=== PATIENT | female | born 1945 | race African-American/Black ===

== ENCOUNTER → 2017-01-14 | Outpatient (CLI) | payer MEDICARE ==
[2017-01-14 14:10] LABS: APPEARANCE,URINE CLEAR; BILIRUBIN,URINE NEGATIVE (NEGATIVE); GLUCOSE, URINE NEGATIVE (NEGATIVE); KETONES,URINE TRACE mg/dL (NEGATIVE); LEUKOCYTE ESTERASE,URINE TRACE (NEGATIVE); NITRITE,URINE NEGATIVE (NEGATIVE); PROTEIN,URINE 30 mg/dL (NEGATIVE); UROBILINOGEN,URINE NEGATIVE mg/dL (<2.0)
[2017-01-14 14:30] LABS: HEMATOCRIT 34.7 % (36.0-47.0); HEMOGLOBIN 11.7 g/dL (12.0-15.5); HGB HCT DIFFERENCE 0.4; MEAN CORPUSCULAR HEMOGLOBIN 30.2 pg (27.0-33.4); MEAN CORPUSCULAR HGB CONC 33.6 g/dL (32.0-36.0); MEAN CORPUSCULAR VOLUME 90 fl (80-97); RED BLOOD COUNT 3.86 10^6/uL (3.72-5.28); RED CELL DISTRIBUTION WIDTH 13.1 % (11.5-14.0); WHITE BLOOD COUNT 4.5 10^3/uL (4.0-10.5)
[2017-01-14 14:39] LABS: ANION GAP 13 (5-19); BLOOD UREA NITROGEN 24 mg/dL (7-20); CALCIUM 9.8 mg/dL (8.4-10.2); CARBON DIOXIDE 24 mmol/L (22-30); CHLORIDE 107 mmol/L (98-107); CREATININE RESULT 0.75 mg/dL (0.52-1.25); GLUCOSE 132 mg/dL (75-110); POTASSIUM 4.3 mmol/L (3.6-5.0); SODIUM 144.2 mmol/L (137-145)
== END ==
LOC: LAB 13:46
PROVIDERS: ATTEND Internal Medicine Nephrology
DX: R80.9 Proteinuria, unspecified (principal); E11.9 Type 2 diabetes mellitus without complications; I10 Essential (primary) hypertension
CPT/HCPCS: 36415; 80048; 81001; 82570; 84156; 85027

== ENCOUNTER → 2017-09-10 | Outpatient (CLI) | payer MEDICARE ==
--- NOTE | 2017-09-10 11:27 | RADIOLOGY REPORT (SQ) ---
EXAM DESCRIPTION: AFUAIE SWALLOW COMPLETED DATE/TIME: 09/10/2017 8:55 am REASON FOR STUDY: DYSPHAGIA R13.11 DYSPHAGIA, ORAL PHASE R13.12 DYSPHAGIA, OROPHARYNGEAL PHASE R13 .13 DYSPHAGIA, PHARYNGEAL PHASE COMPARISON: None. TECHNIQUE: Videofluoroscopic swallowing examination was performed in conjunction with speech patholo gy. Videofluoroscopic imaging was obtained and reviewed and these are the findings: RADIATION DOSE: 2 minutes 15 seconds of fluoroscopy was used. 1 images saved to PACS. LIMITATIONS: None FINDINGS: The patient was brought into the fluoro room and placed upright on a modified barium swall ow chair. The patient was then given multiple consistencies mixed with barium to swallow under live fluoroscopic video guidance. According to the Speech Pathologist there was laryngeal penetration and suspected aspiration of post swallow residual contrast from the vallecula. IMPRESSION: LARYNGEAL PENETRATION AND SUSPECTED ASPIRATION DESCRIBED.PLEASE SEE SPEECH PATHOLOGIS T REPORT FOR OTHER FINDINGS AND RECOMMENDATIONS. COMMENT: Quality ID [id number]: Final reports for procedures using fluoroscopy that document radiation exp osure indices, or exposure time and number of fluorographic images (if radiation exposure indices are not available) TECHNICAL DOCUMENTATION: JOB ID: [id number] [employer]- All Rights Reserved
--- NOTE | 2017-09-10 15:48 | ST Modified Barium Swallow ---
Recommendation - Recommendations Recommendations: Recommend swallowing strategies hard swallow, alternating solids and liquids, throat clear and reswallow. Continue with current outpatient speech therapy to address dysphagia and dysarthria. Medical Diagnoses - Medical Diagnoses Medical Diagnosis Description & ICD-10 Code(s): oral dysphagia R13.11, oropharyngeal dys R13.12, pharyngeal dys R13.13 Other Medical Diagnoses/Co-Morbidities: Per patient/caregiver report: Diabetic, high blood pressure, history of "mini-strokes". ST Modified Barium Swallow - General Date: 09/10/17 Risks/Precautions: Falls, Aspiration - History History obtained from: Patient, Spouse -: Medical - Reports had stroke about a year ago & was discharged from hospital with home health services. Reports recevied PT & OT, but no speech therapy. Patient reports has lost weight since stroke - reports she has lost 20 pounds. Patient does report loss of appetite following stroke. reports some weight loss may have been intentional - states kidney doctor has advised weight loss. Patient has been attending outpatient speech therapy for dysarthria , but some swallowing concerns were also noted, specifically coughing during PO trials. Medications: Per patient/caregiver report: Metformin, Plavix, Hydroclorothiazide , Ramipril, Aspirin. - Functional Status Prior Functional Status: INDEPENDENT: feeding - independent Current Functional Limitations: feeding - modified independent/coughing - Subjective Patient/caregiver goal(s): safe swallow, r/o aspiration Cognitive-Linguistic Function: Functional Speech Intelligibility: Mildly dysarthric Current Nutritional Means: PO Current PO diet: Regular Current symptoms: Coughing Pain: Patient reports, 0/5 - Objective Assessment: Upright, Left Lateral - Food Trials Used Food trials used: Thin liquids, Pureed, Regular The patient: Was Able to Self Feed - Oral-Motor Skills Dentition: Full Laryngeal Function: Volitional Cough - wnl, Volitional Swallow - wnl - Assessment Oral prep: Normal Labial closure: Adequate Leakage: None Mastication: Adequate Lingual Movement: Normal Oral stage: Normal for this Procedure - Pharyngeal Stage Initiation of Pharyngeal Stage Reflex: Normal Decreased laryngeal elevation: No Reduced Velopharyngeal Closure: no Reduced pressure generation: Yes reduced tongue-based retraction: No Pre-swallow pooling in valleculae: None Pre-Swallow pooling in pyriforms: None Reduced epiglottic excursion: No Reduced pharyngeal peristalsis/contraction: Yes Multiple Swallows with: Cleared w/ Liquid Assist Post-swallow residulas vallecular: Moderate Post-Swallow residuals in pyriforms: Moderate Pharyngeal Stage Comments: Actual swallow within functional limits, however, residue present after the swallow with solid textures in valleculae and pyriform sinus. This residue at high risk of penetration (seen on this study) and aspiration (suspected on this study). - Fall Risk Assessment Medications/Conditions that increase fall risks include: Antidepressants, sedatives, anti-arrhythmic, diuretic, benzodiazipenes, neuroleptics. BP regulation problems, cardiac problems, balance or gait deficits, neurological problems. Is patient considered at risk for falls: yes Fall Risk Actions Taken: No action needed - in physical therapy, using assistive equiptment - Treatment / Educational Needs: Treatment/Education Needs: Treatment consisted of patient education on the role of the Speech Pathologist. Patient's plan of care and golas were communicated as well as scheduling and attendance policies. Recommendations for initial home program were shared. Patient demonstrated understanding and verbalized agreement. - Impression/Summary Laryngeal Penetration: Yes - possible aspiration, not definitive, Cough, Cleared , after swallow Consistency: Solid - residue from solid trials Productive cough: Yes Effective Clearing: yes Ineffective compensatory strategies: hard swallow Patient presents with: Pharyngeal stage dysph., Mild-Moderate Risk of Aspiration: Moderate Risk of nutritional compromise: None Evaluation and Findings: Patient presented with decreased ability to clear bolus from pharyngeal cavity, resulting in significant valleculae and pyriform sinus residue. This residue was seen to then penetrate into laryngeal vestibule , stimulating cough reflex and largely clearing material. Possible aspiration present. Residue was reduced with liquid wash, and further cleared with dry swallow. - Recommendations Solid diet recommendations: Mechanical Soft, Chopped Meat Liquid Diet Modification: Thin Strict aspiration precautions: Yes Dysphagia therapy with DEVOPS ENGINEER: f/u with current thera. Recommended techniques: Fully Upright During Meal, Dry Swallow After Bite, Small Bites and Sips, Alternate Bites/Sips Information, Precautions and Recommendations: Patient (Written), Patient (Verbal ), Family Member (Written), Family Member (Verbal) - Time Total Time: 20 - Plan of Care Patient to follow-up with referring physician: Yes Rehab potential for established goals: Good POC Procedures/Codes: pharyngeal exercises, behavioral/dietary mod Strategies to optimize patient understanding include:: ongoing assessment of educational needs, implementation of educational strategies, and re-education. - - -: Thank you for the opportunity to work with this patient and his/her family. Should you have any questions about this patient's plan or progress, I can be reached at [phone]. Charge G Code? - - -: Yes ST K[facility] Impairment Category - Rationale Based On Rationale Based On: Func. Asses. Tool Results - Swallowing Current G8996: CJ 20-39% Impaired Goal G8997: CI 1-19% Impaired
== END ==
LOC: RAD 08:10
PROVIDERS: ATTEND Registered Nurse
DX: R13.11 Dysphagia, oral phase (principal); R13.12 Dysphagia, oropharyngeal phase; R13.13 Dysphagia, pharyngeal phase
CPT/HCPCS: 74230; 92611; G8996; G8997

== ENCOUNTER → 2018-01-08 | Outpatient (CLI) | payer MEDICARE ==
[2018-01-08 13:52] LABS: HEMATOCRIT 36.4 % (36.0-47.0); HEMOGLOBIN 12.2 g/dL (12.0-15.5); MEAN CORPUSCULAR HEMOGLOBIN 29.7 pg (27.0-33.4); MEAN CORPUSCULAR HGB CONC 33.6 g/dL (32.0-36.0); MEAN CORPUSCULAR VOLUME 88 fl (80-97); PLATELET COUNT 177 10^3/uL (150-450); RED BLOOD COUNT 4.12 10^6/uL (3.72-5.28); WHITE BLOOD COUNT 5.6 10^3/uL (4.0-10.5)
[2018-01-08 14:45] LABS: ANION GAP 6 (5-19); BLOOD UREA NITROGEN 24 mg/dL (7-20); CALCIUM 9.6 mg/dL (8.4-10.2); CARBON DIOXIDE 31 mmol/L (22-30); CHLORIDE 103 mmol/L (98-107); GLUCOSE 245 mg/dL (75-110); POTASSIUM 4.9 mmol/L (3.6-5.0); SODIUM 139.8 mmol/L (137-145)
== END ==
LOC: LAB 13:32
PROVIDERS: ATTEND Internal Medicine Nephrology
DX: E11.22 Type 2 diabetes mellitus with diabetic chronic kidney disease (principal); I12.9 Hypertensive chronic kidney disease with stage 1 through stage 4 chronic kidney disease, or unspecified chronic kidney disease; N18.9 Chronic kidney disease, unspecified; R80.9 Proteinuria, unspecified
CPT/HCPCS: 36415; 80048; 83735; 84100; 85027

== ENCOUNTER 2018-03-13 03:01 | Emergency (ER) | payer MEDICARE ==
[2018-03-13] MEDS ORDERED: MORPHINE SULFATE 10 MG/ML INJ IV ONE (03:27)
[2018-03-13] MEDS ORDERED: METOCLOPRAMIDE HCL INJ/PF 10 MG/2 ML SDV IV ONE (03:36)
--- NOTE | 2018-03-13 03:36 | ER Document Report ---
ED GI/ - General Chief Complaint: Nausea/Vomiting/Diarrhea Stated Complaint: NAUSEA/VOMITING Time Seen by Provider: 03/13/18 03:10 Notes: Patient is a 72-year-old female that comes emergency department for chief complaint of vomiting and abdominal pain. Patient comes by EMS, was given Zofran, vomited once after Zofran. reports she had several episodes of vomiting, one episode of loose stools, no blood in vomit or stool. Patient reports generalized abdominal pain, denies chest pain, shortness of breath, flank pain. She denies any surgeries. Past medical history of stroke, has swallowing and speech deficits, also has a history of type 2 diabetes and hypertension. No other reported medical history. TRAVEL OUTSIDE OF THE [place] IN LAST 30 DAYS: No - Related Data Allergies/Adverse Reactions: No Known Allergies Allergy (Verified 03/13/18 03:27) Past Medical History - General Information source: Patient, Relative - - Social History Smoking Status: Never Smoker Frequency of alcohol use: None Drug Abuse: None Lives with: Family Family History: Reviewed & Not Pertinent Patient has suicidal ideation: No Patient has homicidal ideation: No - Past Medical History Cardiac Medical History: Reports: Hx Hypertension Denies: Hx Congestive Heart Failure, Hx DVT, Hx Heart Attack, Hx Hypercholesterolemia, Hx Pulmonary Embolism Pulmonary Medical History: Reports: Hx Bronchitis Denies: Hx Asthma, Hx COPD, Hx Pneumonia Neurological Medical History: Denies: Hx Cerebrovascular Accident, Hx Seizures Endocrine Medical History: Reports: Hx Diabetes Mellitus Type 2. Denies: Hx Diabetes Mellitus Type 1, Hx Hyperthyroidism, Hx Hypothyroidism Renal/ Medical History: Denies: Hx Peritoneal Dialysis GI Medical History: Reports: Hx Gastroesophageal Reflux Disease. Denies: Hx Cirrhosis, Hx Hepatitis Musculoskeltal Medical History: Denies Hx Arthritis Psychiatric Medical History: Denies: Hx Depression Infectious Medical History: Denies: Hx Hepatitis Past Surgical History: Reports: Hx Hysterectomy. Denies: Hx Pacemaker - Immunizations Hx Diphtheria, Pertussis, Tetanus Vaccination: No Hx Pneumococcal Vaccination: 07/21/15 Review of Systems - Review of Systems Constitutional: No symptoms reported EENT: No symptoms reported Cardiovascular: No symptoms reported Respiratory: No symptoms reported Gastrointestinal: See HPI Genitourinary: No symptoms reported Female Genitourinary: No symptoms reported Musculoskeletal: No symptoms reported Skin: No symptoms reported Hematologic/Lymphatic: No symptoms reported Neurological/Psychological: No symptoms reported Physical Exam - Vital signs Vitals: Temp Pulse Resp BP Pulse Ox 97.6 F 80 20 158/78 H 94 03/13/18 03:10 03/13/18 03:10 03/13/18 03:10 03/13/18 03:10 03/13/18 03:10 - Notes Notes: General Appearance: Well nourished, alert, cooperative, no acute distress, no obvious discomfort. Vitals: reviewed, See vital signs table. Head: no swelling or tenderness to the head Eyes: PERRL, EOMI, Conjuctiva clear Mouth: No decreasd moisture Throat: Slight erythema of the tonsils. No tonsillar hypertrophy. No exudates. Neck: Supple, no neck tenderness, No thyromegaly. No lymphadenopathy. No nuchal rigidty. Lungs: No wheezing, No rales, No rhonci, No accessory muscle use, good air exchange bilaterally. Heart: Normal rate, Regular rythm, No murmur, no rub Abdomen: Normal BS, soft, No rigidity, there is mild generalized mid abdominal tenderness which is nonspecific, No guarding, no rebound, no abdominal masses, no organomegaly Extremities: strength 5/5 in all extremities, good pulses in all extremities, no swelling or tenderness in the extremities, no edema. Skin: warm, dry, appropriate color, no rash Neuro: speech deficit with difficulty understanding patient clearly, oriented x 3, responds appropriately to questions. Cranial nerves II through XII are intact. Distal sensation intact. Patient moves all extremities without difficulty. Course - Re-evaluation Re-evalutation: Patient with some mid abdominal tenderness but no guarding on exam, she does not complain of pain unless I press on the abdomen. She is alert, she is well- appearing otherwise. No vomiting after arrival to the emergency department and after medications. Given IV fluids. CBC unremarkable, chemistry shows evidence of dehydration without renal failure or significant electrolyte derangement. Urine shows large leukocyte esterase, a few white blood cells. Because of pain on palpation of the abdomen and vomiting along with her advanced age discussed with patient and family and decision was made to perform CAT scan to rule out acute emergent etiology. CAT scan shows no acute abdominal or pelvic abnormality, questionable area on lower T-spine per radiologist, however patient has no tenderness of the area, no history of IV drug abuse, no immunocompromise condition, no neurological deficits, no fever, I have very low suspicion of discitis. Patient tolerating fluids very well, requesting to go home. She will be covered with Keflex, provided with nausea medication, discussed close follow-up and return precautions in detail with patient and at bedside. They state understanding and agreement. - Vital Signs Vital signs: Temp Pulse Resp BP Pulse Ox 97.5 F 85 18 161/61 H 95 03/13/18 07:22 03/13/18 07:22 03/13/18 07:22 03/13/18 07:22 03/13/18 07:22 - Laboratory Result Diagrams: 03/13/18 03:45 03/13/18 03:45 Laboratory results interpreted by me: 03/13/18 03/13/18 03/13/18 03:45 03:45 04:05 Monocytes % 1.2 L Sodium 147.6 H Chloride 109 H BUN 36 H Est GFR (Non-Af Amer) 53 L Glucose 143 H Urine Glucose (UA) 50 H Urine Blood SMALL H Ur Leukocyte Esterase LARGE H Discharge - Discharge Clinical Impression: Vomiting Qualifiers: Vomiting type: unspecified Vomiting Intractability: non-intractable Nausea presence: with nausea Qualified Code(s): R11.2 - Nausea with vomiting, unspecified Abdominal pain Qualifiers: Abdominal location: generalized Qualified Code(s): R10.84 - Generalized abdominal pain Condition: Stable Disposition: HOME, SELF-CARE Additional Instructions: The exact cause of the vomiting tonight is uncertain. The CAT scan and workup did not show any abnormalities except possible developing urinary tract infection. Take Keflex antibiotics as prescribed for the urinary tract, take Zofran if needed for nausea, start with clear fluids and then progress to normal diet. Follow-up with your primary care within the next 2 days. Return if you worsen including returned vomiting, abdominal pain, chest pain, fever, or any other concerning or worsening symptoms. Prescriptions: Cephalexin Monohydrate [Keflex 500 mg Capsule] 500 mg PO BID #10 capsule Ondansetron [Zofran Odt 4 mg Tablet] 1 - 2 tab PO Q4H PRN #15 tab.rapdis PRN Reason: For Nausea/Vomiting Referrals: HARIKA BENITEZ MD [Primary Care Provider] - Follow up as needed
[2018-03-13 04:02] LABS: ABSOLUTE LYMPHOCYTES (AUTO) 1.3 10^3/uL (0.5-4.7); ABSOLUTE MONOCYTES (AUTO) 0.1 10^3/uL (0.1-1.4); ABSOLUTE NEUT (AUTO) 3.6 10^3/uL (1.7-8.2); BASOPHILS % (AUTO) 0.6 % (0-2); EOSINOPHILS % (AUTO) 0.7 % (0-6); HEMATOCRIT 40.2 % (36.0-47.0); HEMOGLOBIN 13.2 g/dL (12.0-15.5); LYMPHOCYTES % (AUTO) 25.3 % (13-45); MEAN CORPUSCULAR HEMOGLOBIN 29.5 pg (27.0-33.4); MEAN CORPUSCULAR HGB CONC 32.9 g/dL (32.0-36.0); MEAN CORPUSCULAR VOLUME 90 fl (80-97); MONOCYTES % (AUTO) 1.2 % (3-13); PLATELET COUNT 178 10^3/uL (150-450); RED BLOOD COUNT 4.49 10^6/uL (3.72-5.28); RED CELL DISTRIBUTION WIDTH 13.9 % (11.5-14.0); SEGMENTED NEUTROPHILS % (AUTO) 72.2 % (42-78); TOTAL CELLS COUNTED % (AUTO) 100 %; WHITE BLOOD COUNT 4.9 10^3/uL (4.0-10.5)
[2018-03-13 04:14] LABS: ALANINE AMINOTRANSFERASE 21 U/L (9-52); ALKALINE PHOSPHATASE 80 U/L (38-126); ANION GAP 13 (5-19); ASPARTATE AMINO TRANSFERASE 26 U/L (14-36); BILIRUBIN,DIRECT 0.4 mg/dL (0.0-0.4); BILIRUBIN,TOTAL 0.4 mg/dL (0.2-1.3); BLOOD UREA NITROGEN 36 mg/dL (7-20); CALCIUM 9.7 mg/dL (8.4-10.2); CARBON DIOXIDE 26 mmol/L (22-30); CHLORIDE 109 mmol/L (98-107); GLUCOSE 143 mg/dL (75-110); LIPASE 197.8 U/L (23-300); POTASSIUM 4.1 mmol/L (3.6-5.0); SODIUM 147.6 mmol/L (137-145); TOTAL PROTEIN 7.1 g/dL (6.3-8.2)
[2018-03-13 04:23] LABS: APPEARANCE,URINE CLEAR; BILIRUBIN,URINE NEGATIVE (NEGATIVE); COLOR,URINE YELLOW; GLUCOSE, URINE 50 mg/dL (NEGATIVE); KETONES,URINE NEGATIVE (NEGATIVE); LEUKOCYTE ESTERASE,URINE LARGE (NEGATIVE); NITRITE,URINE NEGATIVE (NEGATIVE); PROTEIN,URINE NEGATIVE (NEGATIVE); UROBILINOGEN,URINE NEGATIVE mg/dL (<2.0)
--- NOTE | 2018-03-13 06:06 | RADIOLOGY REPORT (SQ) ---
EXAM DESCRIPTION: CT ABDOMEN PELVIS WITH IV CONTRAST CLINICAL HISTORY: 72 years Female, vomiting, abdominal pain Comparison: None. Technique: IV contrast. Coronal and sagittal reformat. This exam was performed according to our departmental dose-optimization program, which includes automated exposure control, adjustment of the mA and/or kV according to patient size and/or use of iterative reconstruction technique.[facility]: Dose Right [facility]: CareDose [facility]: Dose Right [facility]: Teradose 4D [facility]: GlobaTrek LIMITATIONS: Arm position. Findings: Mild irregular endplates and disc height loss at T10-T11; no evidence of paravertebral mass or fluid. Moderate nonspecific fluid retention of the large bowel which may indicate malabsorption. No free fluid and no free air. No evidence of appendicitis; appendix not definitively discerned. Grade 1 L4 anterolisthesis.Moderate bone demineralization. Atherosclerosis.Inferior thorax, liver, gallbladder, pancreas, spleen, adrenals, renal system, gastrointestinal tract, pelvic organs, lymphatics, vasculature, and musculoskeleton appear otherwise unremarkable. IMPRESSION: 1. Mild irregular endplates at the T10-T11 disc level may indicate advanced focal disc desiccation or infectious discitis. Consider further evaluation with contrast MRI of the thoracolumbar spine or Ga-67 scintigraphy as clinically warranted. 2. No acute findings of the abdomen or pelvis.
[2018-03-13] MEDS ORDERED: NORMAL SALINE 1000 ML 500 ML IV ONE (06:14)
[2018-03-13 07:23] VITALS: BP 161/61
== END 2018-03-13 07:05 | disposition home or self-care (01) ==
LOC: ER 03:01
DX: R11.2 Nausea with vomiting, unspecified (principal); R10.84 Generalized abdominal pain; R19.4 Change in bowel habit; E11.9 Type 2 diabetes mellitus without complications; I10 Essential (primary) hypertension; I69.328 Other speech and language deficits following cerebral infarction; I69.391 Dysphagia following cerebral infarction; R13.10 Dysphagia, unspecified; E86.0 Dehydration
CPT/HCPCS: 99284; 96361; 51701; 96374; 96375; 36415; 87086; 83690; 85025; 87088; 80053; 81001; 87186; 74177; J2765; J2270; J7030

== ENCOUNTER → 2018-07-17 | Outpatient (CLI) | payer MEDICARE ==
--- NOTE | 2018-07-17 09:49 | ST Modified Barium Swallow ---
Recommendation - Recommendations Recommendations: No penetration or aspiration observed across all consistencies trialed, but patient had significant coughing after swallow although there were no residuals of food/liquid and significant coughing after study had been completed. Recommend continue regular/thin diet. Consider gastroenterology referral to see if reflux may be causing globus sensation and coughing after meals. Medical Diagnoses - Medical Diagnoses Medical Diagnosis Description & ICD-10 Code(s): dysphagia (R13.10) Other Medical Diagnoses/Co-Morbidities: Per patient/caregiver report: Diabetic, high blood pressure, history of "mini-strokes". ST Modified Barium Swallow - General Date: 07/17/18 Referring Physician: Kyleigh Risks/Precautions: Falls, Aspiration Date of Onset: 07/21/16 Reason for Referral: dysphagia, coughing during meals - History History obtained from: Patient - Patient reports stroke in July 2016. Seen for outpatient speech therapy focusing on dysphagia and dysarthria, but discharged October 2017. Patient's reports that she is receiving home health speech therapy continuing to work on dysphagia and dysarthria. Patient reports continued coughing during meals with food and liquids., Spouse -: Medical Medications: Per patient/caregiver report: Metformin, Ramipril, insulin - Functional Status Prior Functional Status: INDEPENDENT: ADL, community mobility, communication, feeding - Subjective Patient/caregiver goal(s): safe swallow, r/o aspiration Cognitive-Linguistic Function: Functional Speech Intelligibility: Mildly dysarthric Current Nutritional Means: PO Current PO diet: Regular - with thin liquids Current symptoms: Coughing, c/o Globus sensation Pain: Patient reports, 0/5 - Objective Assessment: Upright, Left Lateral - Food Trials Used Food trials used: Thin liquids, Pureed, Regular The patient: Was Able to Self Feed - Oral-Motor Skills Dentition: Full Laryngeal Function: Volitional Cough - Assessment Oral prep: Normal Labial closure: Adequate Leakage: None Mastication: Adequate Lingual Movement: Normal Oral stage: Normal for this Procedure - Pharyngeal Stage Initiation of Pharyngeal Stage Reflex: Normal Reflex Delay Time (Seconds): 1 Decreased laryngeal elevation: No Reduced Velopharyngeal Closure: no Reduced pressure generation: No reduced tongue-based retraction: No Pre-swallow pooling in valleculae: Mild Pre-Swallow pooling in pyriforms: Mild - with thin and cracker; swallow triggered within 1 second Reduced Thyro-Hyoid approximation: No Reduced epiglottic excursion: No Reduced pharyngeal peristalsis/contraction: No Multiple Swallows with: Effective Post-swallow residulas vallecular: Mild - pudding Post-Swallow residuals in pyriforms: Mild - pudding Reduced Cricopharyngeal opening: No - Esophageal Stage Cricopharyngeal Function: Normal Upper Esophageal Transit: Normal Cervical Osteophytes noted: No - Fall Risk Assessment Medications/Conditions that increase fall risks include: Antidepressants, sedatives, anti-arrhythmic, diuretic, benzodiazipenes, neuroleptics. BP regulation problems, cardiac problems, balance or gait deficits, neurological problems. Is patient considered at risk for falls: yes Fall Risk Actions Taken: No action needed - Behavioral Observations During evaluation process patient: was pleasant, was cooperative, able to answer questions, provided medical history - Treatment / Educational Needs: Treatment/Education Needs: Treatment consisted of patient education on the role of the Speech Pathologist. Patient's plan of care and golas were communicated as well as scheduling and attendance policies. Recommendations for initial home program were shared. Patient demonstrated understanding and verbalized agreement. - Impression/Summary Laryngeal Penetration: No Tracheal Aspiration: no - No penetration or aspiration seen, but patient exhibited significant cough with pudding and after swallow was complete. Patient presents with: Pharyngeal stage dysph., Mild-Moderate Risk of Aspiration: Minimal Risk of nutritional compromise: Mild - Recommendations NPO: no Solid diet recommendations: Regular Liquid Diet Modification: Thin Strict aspiration precautions: Yes Pt/Family education and followup with MD: Yes Dysphagia therapy with WARP SPOOLER: no Recommended techniques: Fully Upright During Meal, Small Bites and Sips Supervision: Independent - Time Total Time: 20 - Plan of Care Strategies to optimize patient understanding include:: ongoing assessment of educational needs, implementation of educational strategies, and re-education. - - -: Thank you for the opportunity to work with this patient and his/her family. Should you have any questions about this patient's plan or progress, I can be reached at [phone]. Charge G Code? - - -: Yes ST F.L. Impairment Category - Swallowing Current G8996: CI 1-19% Impaired Goal G8997: CI 1-19% Impaired Discharge G8998: CI 1-19% Impaired
--- NOTE | 2018-07-17 11:53 | RADIOLOGY REPORT (SQ) ---
EXAM DESCRIPTION: HEATHER SWALLOW COMPLETED DATE/TIME: 07/17/2018 8:51 am REASON FOR STUDY: DYSPHAGIA, OROPHARYNGEAL PHASE R13.12 DYSPHAGIA, OROPHARYNGEAL PHASE CVA COMPARISON: 09/10/2017 TECHNIQUE: Videofluoroscopic swallowing examination was performed in conjunction with speech patholo gy. Videofluoroscopic imaging was obtained and reviewed and these are the findings: RADIATION DOSE: 1 minutes 5 seconds of fluoroscopy was used. 1 images saved to PACS. LIMITATIONS: None FINDINGS: The patient was brought into the fluoro room and placed upright on a modified barium swall ow chair. The patient was then given multiple consistencies mixed with barium to swallow under live fluoroscopic video guidance. According to the Speech Pathologist there was no penetration or aspirat ion. IMPRESSION: NO EVIDENCE OF PENETRATION OR ASPIRATIONPLEASE SEE SPEECH PATHOLOGIST REPORT FOR OTHER F INDINGS AND RECOMMENDATIONS. COMMENT: Quality ID [id number]: Final reports for procedures using fluoroscopy that document radiation exp osure indices, or exposure time and number of fluorographic images (if radiation exposure indices are not available) TECHNICAL DOCUMENTATION: JOB ID: [id number]- All Rights Reserved Reading location - IP/workstation name: [email or web address]
== END ==
LOC: RAD 08:24
PROVIDERS: ATTEND Family Medicine
DX: R13.12 Dysphagia, oropharyngeal phase (principal)
CPT/HCPCS: 74230; 92611; G8996; G8997; G8998

== ENCOUNTER 2018-10-09 11:34 | Emergency (ER) | payer MEDICARE ==
[2018-10-09] MEDS ORDERED: NORMAL SALINE 1000 ML 1,000 ML IV ONE (11:49)
--- NOTE | 2018-10-09 11:51 | ER Document Report ---
ED Medical Screen (RME) - General Chief Complaint: Flank Pain Stated Complaint: ABDOMINAL PAIN Notes: 73-year-old female patient with about a 3-day history of not eating well, vomited about 1 hour following supper the past 2 nights, noted to be more lethargic today. Does not normally get around well but it is worse today. 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 She had been complaining of some pain in her right flank. Blood sugar was about 160 this morning. I have greeted and performed a rapid initial assessment of this patient. A comprehensive ED assessment and evaluation of the patient, analysis of test results and completion of the medical decision making process will be conducted by additional ED providers. TRAVEL OUTSIDE OF THE [place] IN LAST 30 DAYS: No - Related Data Allergies/Adverse Reactions: No Known Allergies Allergy (Verified 03/13/18 03:27) Past Medical History - Past Medical History Cardiac Medical History: Reports: Hx Hypertension Denies: Hx Congestive Heart Failure, Hx DVT, Hx Heart Attack, Hx Hypercholesterolemia, Hx Pulmonary Embolism Pulmonary Medical History: Reports: Hx Bronchitis Denies: Hx Asthma, Hx COPD, Hx Pneumonia Neurological Medical History: Denies: Hx Cerebrovascular Accident, Hx Seizures Endocrine Medical History: Reports: Hx Diabetes Mellitus Type 2. Denies: Hx Diabetes Mellitus Type 1, Hx Hyperthyroidism, Hx Hypothyroidism Renal/ Medical History: Denies: Hx Peritoneal Dialysis GI Medical History: Reports: Hx Gastroesophageal Reflux Disease. Denies: Hx Cirrhosis, Hx Hepatitis Musculoskeltal Medical History: Denies Hx Arthritis Psychiatric Medical History: Denies: Hx Depression Infectious Medical History: Denies: Hx Hepatitis Past Surgical History: Reports: Hx Hysterectomy. Denies: Hx Pacemaker - Immunizations Hx Diphtheria, Pertussis, Tetanus Vaccination: No Physical Exam - Vital signs Vitals: Temp Pulse Resp BP Pulse Ox 98.1 F 69 18 169/64 H 96 10/09/18 11:46 10/09/18 11:46 10/09/18 11:46 10/09/18 11:46 10/09/18 11:46 Course - Vital Signs Vital signs: Temp Pulse Resp BP Pulse Ox 98.1 F 69 18 169/64 H 96 10/09/18 11:46 10/09/18 11:46 10/09/18 11:46 10/09/18 11:46 10/09/18 11:46 Doctor's Discharge - Discharge Referrals: HARIKA BENITEZ MD [Primary Care Provider] - Follow up as needed
[2018-10-09] MEDS ORDERED: ONDANSETRON HCL INJ/PF 4 MG/2 ML SDV IV ONE (12:28)
[2018-10-09 12:40] LABS: ABSOLUTE BASOPHILS # (AUTO) 0.1 10^3/uL (0.0-0.2); ABSOLUTE LYMPHOCYTES (AUTO) 1.5 10^3/uL (0.5-4.7); ABSOLUTE MONOCYTES (AUTO) 0.3 10^3/uL (0.1-1.4); ABSOLUTE NEUT (AUTO) 6.7 10^3/uL (1.7-8.2); BASOPHILS % (AUTO) 0.8 % (0-2); EOSINOPHILS % (AUTO) 0.3 % (0-6); HEMATOCRIT 38.2 % (36.0-47.0); HEMOGLOBIN 12.8 g/dL (12.0-15.5); LYMPHOCYTES % (AUTO) 17.1 % (13-45); MEAN CORPUSCULAR HEMOGLOBIN 29.8 pg (27.0-33.4); MEAN CORPUSCULAR HGB CONC 33.5 g/dL (32.0-36.0); MEAN CORPUSCULAR VOLUME 89 fl (80-97); MONOCYTES % (AUTO) 3.2 % (3-13); PLATELET COUNT 219 10^3/uL (150-450); RED BLOOD COUNT 4.29 10^6/uL (3.72-5.28); RED CELL DISTRIBUTION WIDTH 13.6 % (11.5-14.0); SEGMENTED NEUTROPHILS % (AUTO) 78.6 % (42-78); TOTAL CELLS COUNTED % (AUTO) 100 %; WHITE BLOOD COUNT 8.5 10^3/uL (4.0-10.5)
--- NOTE | 2018-10-09 13:05 | EKG REPORT ---
SEVERITY:- BORDERLINE ECG - SINUS RHYTHM BORDERLINE INFERIOR Q WAVES BORDERLINE T WAVE ABNORMALITIES : Confirmed by: Mark Barrett MD 09-Oct-2018 13:04:08
[2018-10-09 13:06] LABS: ALANINE AMINOTRANSFERASE 14 U/L (9-52); ALBUMIN 4.2 g/dL (3.5-5.0); ALKALINE PHOSPHATASE 81 U/L (38-126); ANION GAP 11 (5-19); ASPARTATE AMINO TRANSFERASE 22 U/L (14-36); BILIRUBIN,DIRECT 0.2 mg/dL (0.0-0.4); BILIRUBIN,TOTAL 0.7 mg/dL (0.2-1.3); BLOOD UREA NITROGEN 26 mg/dL (7-20); CALCIUM 9.8 mg/dL (8.4-10.2); CARBON DIOXIDE 31 mmol/L (22-30); CHLORIDE 100 mmol/L (98-107); CREATINE KINASE 69 U/L (30-135); GLUCOSE 191 mg/dL (75-110); POTASSIUM 4.3 mmol/L (3.6-5.0); SODIUM 141.5 mmol/L (137-145); TOTAL PROTEIN 7.4 g/dL (6.3-8.2)
[2018-10-09 13:08] LABS: APPEARANCE,URINE CLEAR; BILIRUBIN,URINE NEGATIVE (NEGATIVE); COLOR,URINE YELLOW; GLUCOSE, URINE NEGATIVE (NEGATIVE); KETONES,URINE TRACE mg/dL (NEGATIVE); LEUKOCYTE ESTERASE,URINE NEGATIVE (NEGATIVE); NITRITE,URINE NEGATIVE (NEGATIVE); PROTEIN,URINE 100 mg/dL (NEGATIVE); URINE SPECIFIC GRAVITY 1.023; UROBILINOGEN,URINE NEGATIVE mg/dL (<2.0)
[2018-10-09 13:30] LABS: CREATINE KINASE MB < 0.22 ng/mL (<4.55); TROPONIN I < 0.012 ng/mL
--- NOTE | 2018-10-09 14:19 | ER Document Report ---
ED General - General Chief Complaint: Flank Pain Stated Complaint: ABDOMINAL PAIN Time Seen by Provider: 10/09/18 11:51 Notes: Patient is a 73-year-old female with history of CVA that presents to the emergency department for chief complaint of nausea, vomiting and abdominal pain. Patient states that her symptoms started yesterday, she did have vomiting yesterday evening, as well as nausea this morning, she had pain in her right flank region, and was worried about a possible urinary tract infection. She thinks she may have had some discomfort with urinating. Denies noting any fevers, chills, night sweats, chest pain, shortness of breath, difficulty breathing. She has not had any diarrhea associated. At this time she describes her pain as a 3 out of 10, describes as "not that bad" as an aching sensation that radiates from the back to the front. Past Medical History: CVA with residual left-sided deficits, diabetes mellitus, hypertension Past Surgical History: Reviewed and not pertinent to presentation Social History: Denies current tobacco, alcohol or drug use Family History: Reviewed and noncontributory for presenting illness Allergies: Reviewed, see documented allergy list. REVIEW OF SYSTEMS: Other than noted above, the 12 point review of systems was reviewed with the patient and were negative, all pertinent findings are included in the HPI. PHYSICAL EXAMINATION: Vital signs reviewed, nursing noted reviewed. GENERAL: Well-appearing, well-nourished and in no acute distress. HEAD: Atraumatic, normocephalic. EYES: Eyes appear normal, extraocular movements intact, sclera anicteric, conjunctiva are normal. ENT: nares patent, oropharynx clear without exudates. Moist mucous membranes. NECK: Normal range of motion, supple without lymphadenopathy LUNGS: Breath sounds clear to auscultation bilaterally and equal. No wheezes rales or rhonchi. HEART: Regular rate and rhythm without murmurs ABDOMEN: Soft, mild left CVA tenderness with palpation, no anterior abdominal tenderness, normoactive bowel sounds. No rebound, guarding, or rigidity. No masses appreciated. EXTREMITIES: Nontender, good motor strength, is +4/5 in the left upper and lower extremity, compared to the right which is 5/5, this is chronic and not changed. NEUROLOGICAL: Dysarthria, and muscular motor weakness on the left compared to the right, chronic according to the patient's , and not changed or worsened, no new focal neurological deficits. Moves all extremities spontaneously Motor and sensory grossly intact on exam. PSYCH: Normal mood, normal affect. SKIN: Warm, Dry, normal turgor, no rashes or lesions noted on exposed skin TRAVEL OUTSIDE OF THE [place] IN LAST 30 DAYS: No - Related Data Allergies/Adverse Reactions: No Known Allergies Allergy (Verified 03/13/18 03:27) Past Medical History - Social History Smoking Status: Former Smoker Frequency of alcohol use: None Drug Abuse: None Family History: Reviewed & Not Pertinent Patient has suicidal ideation: No Patient has homicidal ideation: No - Past Medical History Cardiac Medical History: Reports: Hx Hypertension Denies: Hx Congestive Heart Failure, Hx DVT, Hx Heart Attack, Hx Hypercholesterolemia, Hx Pulmonary Embolism Pulmonary Medical History: Reports: Hx Bronchitis Denies: Hx Asthma, Hx COPD, Hx Pneumonia Neurological Medical History: Denies: Hx Cerebrovascular Accident, Hx Seizures Endocrine Medical History: Reports: Hx Diabetes Mellitus Type 2. Denies: Hx Diabetes Mellitus Type 1, Hx Hyperthyroidism, Hx Hypothyroidism Renal/ Medical History: Denies: Hx Peritoneal Dialysis GI Medical History: Reports: Hx Gastroesophageal Reflux Disease. Denies: Hx Cirrhosis, Hx Hepatitis Musculoskeletal Medical History: Denies Hx Arthritis Psychiatric Medical History: Denies: Hx Depression Infectious Medical History: Denies: Hx Hepatitis Past Surgical History: Reports: Hx Hysterectomy. Denies: Hx Pacemaker - Immunizations Hx Diphtheria, Pertussis, Tetanus Vaccination: No Hx Pneumococcal Vaccination: 07/21/15 Physical Exam - Vital signs Vitals: Temp Pulse Resp BP Pulse Ox 98.1 F 69 18 169/64 H 96 10/09/18 11:46 10/09/18 11:46 10/09/18 11:46 10/09/18 11:46 10/09/18 11:46 Course - Re-evaluation Re-evalutation: Patient seen and examined vital signs reviewed. Laboratory data and imaging were ordered as appropriate for the patient's presenting symptoms and complaint, with consideration of any critical or life threatening conditions that may be associated with their obtained history and exam as noted above. Patient was treated with IV fluids and Zofran Results were reviewed when available and demonstrated unremarkable CBC, CMP, and urinalysis, no signs convincing of urinary tract infection The patient was re-evaluated and was improved, stated she did not have any further pain, or nausea, and felt much better than when she came into the ED. Evaluation was most consistent with nausea and vomiting, and nonspecific abdominal pain, advised follow-up with PCP and given a prescription for Zofran. Results were discussed with the patient at this point, after careful consideration I feel that that patient can be discharged from the emergency department, the patient was educated treatments and reasons to return to the emergency department based on their presumed diagnosis as noted above, they were advised to followup with a primary care physician in 2-3 days. Patient was agr eeable to plan of care. *Note is created using voice recognition software and may contain spelling, syntax or grammatical errors. Laboratory 10/09/18 10/09/18 10/09/18 12:25 12:25 12:25 WBC 8.5 RBC 4.29 Hgb 12.8 Hct 38.2 MCV 89 MCH 29.8 MCHC 33.5 RDW 13.6 Plt Count 219 Seg Neutrophils % 78.6 H Lymphocytes % 17.1 Monocytes % 3.2 Eosinophils % 0.3 Basophils % 0.8 Absolute Neutrophils 6.7 Absolute Lymphocytes 1.5 Absolute Monocytes 0.3 Absolute Eosinophils 0.0 Absolute Basophils 0.1 Sodium 141.5 Potassium 4.3 Chloride 100 Carbon Dioxide 31 H Anion Gap 11 BUN 26 H Creatinine 0.85 Est GFR ( Amer) > 60 Est GFR (Non-Af Amer) > 60 Glucose 191 H Lactic Acid 1.1 Calcium 9.8 Magnesium 1.9 Total Bilirubin 0.7 Direct Bilirubin 0.2 Neonat Total Bilirubin Not Reportable Neonat Direct Bilirubin Not Reportable Neonat Indirect Bili Not Reportable AST 22 ALT 14 Alkaline Phosphatase 81 Creatine Kinase 69 CK-MB (CK-2) Troponin I Total Protein 7.4 Albumin 4.2 Urine Color Urine Appearance Urine pH Ur Specific [place] Urine Protein Urine Glucose (UA) Urine Ketones Urine Blood Urine Nitrite Urine Bilirubin Urine Urobilinogen Ur Leukocyte Esterase Urine WBC (Auto) Urine RBC (Auto) Urine Bacteria (Auto) Urine Mucus (Auto) Urine Ascorbic Acid 10/09/18 10/09/18 12:25 12:46 WBC RBC Hgb Hct MCV MCH MCHC RDW Plt Count Seg Neutrophils % Lymphocytes % Monocytes % Eosinophils % Basophils % Absolute Neutrophils Absolute Lymphocytes Absolute Monocytes Absolute Eosinophils Absolute Basophils Sodium Potassium Chloride Carbon Dioxide Anion Gap BUN Creatinine Est GFR ( Amer) Est GFR (Non-Af Amer) Glucose Lactic Acid Calcium Magnesium Total Bilirubin Direct Bilirubin Neonat Total Bilirubin Neonat Direct Bilirubin Neonat Indirect Bili AST ALT Alkaline Phosphatase Creatine Kinase CK-MB (CK-2) < 0.22 Troponin I < 0.012 Total Protein Albumin Urine Color YELLOW Urine Appearance CLEAR Urine pH 6.0 Ur Specific [place] 1.023 Urine Protein 100 H Urine Glucose (UA) NEGATIVE Urine Ketones TRACE H Urine Blood NEGATIVE Urine Nitrite NEGATIVE Urine Bilirubin NEGATIVE Urine Urobilinogen NEGATIVE Ur Leukocyte Esterase NEGATIVE Urine WBC (Auto) 1 Urine RBC (Auto) 1 Urine Bacteria (Auto) TRACE Urine Mucus (Auto) OCC Urine Ascorbic Acid NEGATIVE - Vital Signs Vital signs: Temp Pulse Resp BP Pulse Ox 98.5 F 69 15 183/75 H 99 10/09/18 15:04 10/09/18 15:04 10/09/18 15:04 10/09/18 15:04 10/09/18 15:04 - Laboratory Result Diagrams: 10/09/18 12:25 10/09/18 12:25 Laboratory results interpreted by me: 10/09/18 10/09/18 10/09/18 12:25 12:25 12:46 Seg Neutrophils % 78.6 H Carbon Dioxide 31 H BUN 26 H Glucose 191 H Urine Protein 100 H Urine Ketones TRACE H Discharge - Discharge Clinical Impression: Nausea and vomiting Condition: Stable Disposition: HOME, SELF-CARE Instructions: Vomiting ([facility]) Additional Instructions: Please follow-up with your primary care physician, take the nausea medicine as needed, and inferior sling or not improving, do not hesitate to return to the emergency department, please continue to stay hydrated, you can drink Diluted Gatorade, and soups to do this, please take your blood pressure medication when you get home today. Prescriptions: Ondansetron [Zofran Odt 4 mg Tablet] 1 tab PO Q8H PRN #15 tab.rapdis PRN Reason: For Nausea/Vomiting Referrals: HARIKA BENITEZ MD [Primary Care Provider] - Follow up as needed
[2018-10-09 14:53] VITALS: BP 183/75
== END 2018-10-09 15:04 | disposition home or self-care (01) ==
LOC: ER 11:34
DX: R11.2 Nausea with vomiting, unspecified (principal); R10.9 Unspecified abdominal pain; E11.9 Type 2 diabetes mellitus without complications; Z86.73 Personal history of transient ischemic attack (TIA), and cerebral infarction without residual deficits; Z90.710 Acquired absence of both cervix and uterus
CPT/HCPCS: 93005; 99284; 96361; 51701; 96374; 36415; 87040; 82553; 82550; 83735; 85025; 80053; 81001; 84484; 83605; 93010; J2405; J7030

== ENCOUNTER 2019-01-16 10:00 | Inpatient (IN) | payer MEDICARE ==
--- NOTE | 2019-01-16 10:18 | ER Document Report ---
ED General - General Chief Complaint: Altered Mental Status Stated Complaint: STROKE LIKE SYMPTOMS Time Seen by Provider: 01/16/19 10:16 Primary Care Provider: HARIKA BENITEZ MD [Primary Care Provider] - Follow up as needed Notes: 73-year-old female patient emergency department chief complaint of strokelike symptoms. Patient has had a prior stroke in the past. Has had dysphasia as well as diplopia. states that this is been getting worse over the last several months. Try to get an appointment with his primary care doctor but was unavailable this week. Has not seen a neurologist in a while and wants to see a neurologist. The patient began to complain that she was seen to have everything. noticed that her face looked a little different specifically that her right eye looked to be drifting outward while the left eye looked forward. She has had worsening difficulty with ambulation over the last several months confining her to wheelchair. Patient seems to be declining according to the . Currently she is on ramipril, hydrochlorothiazide, Lipitor and aspirin as well as metformin. TRAVEL OUTSIDE OF THE [place] IN LAST 30 DAYS: No - HPI Onset/Duration: Gradual Severity: Mild Pain Level: 0 Associated symptoms: None - Related Data Allergies/Adverse Reactions: No Known Allergies Allergy (Verified 01/16/19 16:22) Past Medical History - General Information source: Patient, Relative - Social History Smoking Status: Never Smoker Frequency of alcohol use: None Drug Abuse: None Lives with: Spouse/Significant other Family History: Reviewed & Not Pertinent - Past Medical History Cardiac Medical History: Reports: Hx Hypertension Denies: Hx Congestive Heart Failure, Hx DVT, Hx Heart Attack, Hx Hypercholesterolemia, Hx Pulmonary Embolism Pulmonary Medical History: Reports: Hx Bronchitis Denies: Hx Asthma, Hx COPD, Hx Pneumonia Neurological Medical History: Reports: Hx Cerebrovascular Accident. Denies: Hx Seizures Endocrine Medical History: Reports: Hx Diabetes Mellitus Type 2. Denies: Hx Diabetes Mellitus Type 1, Hx Hyperthyroidism, Hx Hypothyroidism Renal/ Medical History: Denies: Hx Peritoneal Dialysis GI Medical History: Reports: Hx Gastroesophageal Reflux Disease, Other - Dysphagia. Denies: Hx Cirrhosis, Hx Hepatitis Musculoskeletal Medical History: Denies Hx Arthritis Psychiatric Medical History: Denies: Hx Depression Infectious Medical History: Denies: Hx Hepatitis Past Surgical History: Reports: Hx Hysterectomy. Denies: Hx Pacemaker - Immunizations Hx Diphtheria, Pertussis, Tetanus Vaccination: No Hx Pneumococcal Vaccination: 07/21/15 Review of Systems - Review of Systems Constitutional: Weakness. denies: Fever, Malaise EENT: Blurred vision, Double vision, Difficulty swallowing Cardiovascular: denies: Chest pain, Palpitations, Heart racing Respiratory: Cough. denies: Short of breath, Wheezing Gastrointestinal: denies: Abdominal pain, Diarrhea, Nausea, Constipation Genitourinary: denies: Dysuria, Frequency, Flank pain Musculoskeletal: denies: Back pain, Joint pain, Joint swelling Skin: denies: Change in color, Dryness, Lesions, Lumps, Rash Hematologic/Lymphatic: denies: Anemia, Blood clots, Easy bleeding, Easy bruising Neurological/Psychological: Weakness, Gait changes, Loss of power, Paralysis, Numbness Physical Exam - Vital signs Vitals: Pulse Ox 97 01/16/19 10:08 Interpretation: Normal - General General appearance: Appears well, Alert - HEENT Head: Normocephalic, Atraumatic Eyes: Normal Pupils: PERRL Nerve palsy: Yes - Patient has strabismus of the right eye laterally - Respiratory Respiratory status: No respiratory distress Chest status: Nontender Breath sounds: Normal Chest palpation: Normal - Cardiovascular Rhythm: Regular Heart sounds: Normal auscultation Murmur: No - Abdominal Inspection: Normal Distension: No distension Bowel sounds: Normal Tenderness: Nontender Organomegaly: No organomegaly - Back Back: Normal, Nontender - Extremities General upper extremity: Normal inspection, Nontender, Normal color, Normal ROM, Normal temperature General lower extremity: Normal inspection, Nontender, Normal color, Normal ROM, Normal temperature. No: Patricio's sign - Neurological Neuro grossly intact: Yes Cognition: Normal Orientation: AAOx4 [place] Coma Scale Eye Opening: Spontaneous [place] Coma Scale Verbal: Oriented [place] Coma Scale Motor: Obeys Commands [place] Coma Scale Total: 15 Speech: Expressive aphasia Cranial nerves: Tongue deviation Motor strength normal: RUE, RLE. No: LUE, LLE Additional motor exam normals: Pronator drift, Weakness - Psychological Associated symptoms: Normal affect, Normal mood - Skin Skin Temperature: Warm Skin Moisture: Dry Skin Color: Normal Course - Re-evaluation Re-evalutation: 01/16/19 17:10 Laboratory 01/16/19 01/16/19 01/16/19 10:25 10:25 10:25 WBC 4.5 RBC 4.39 Hgb 13.3 Hct 39.1 MCV 89 MCH 30.4 MCHC 34.1 RDW 13.3 Plt Count 205 Seg Neutrophils % 50.7 Lymphocytes % 42.1 Monocytes % 3.4 Eosinophils % 2.5 Basophils % 1.3 Absolute Neutrophils 2.3 Absolute Lymphocytes 1.9 Absolute Monocytes 0.2 Absolute Eosinophils 0.1 Absolute Basophils 0.1 Sodium 139.8 Potassium 4.4 Chloride 102 Carbon Dioxide 27 Anion Gap 11 BUN 18 Creatinine 0.69 Est GFR ( Amer) > 60 Est GFR (Non-Af Amer) > 60 Glucose 137 H Calcium 10.3 H Total Bilirubin 0.5 Direct Bilirubin 0.1 Neonat Total Bilirubin Not Reportable Neonat Direct Bilirubin Not Reportable Neonat Indirect Bili Not Reportable AST 22 ALT 30 Alkaline Phosphatase 112 Creatine Kinase 34 CK-MB (CK-2) < 0.22 Troponin I < 0.012 Total Protein 7.7 Albumin 4.2 Triglycerides 84 Cholesterol 206.04 H LDL Cholesterol Direct 94 VLDL Cholesterol 17.0 HDL Cholesterol 83 TSH Urine Color Urine Appearance Urine pH Ur Specific [place] Urine Protein Urine Glucose (UA) Urine Ketones Urine Blood Urine Nitrite Urine Bilirubin Urine Urobilinogen Ur Leukocyte Esterase Urine RBC (Auto) Urine Mucus (Auto) Urine Ascorbic Acid 01/16/19 01/16/19 10:25 11:35 WBC RBC Hgb Hct MCV MCH MCHC RDW Plt Count Seg Neutrophils % Lymphocytes % Monocytes % Eosinophils % Basophils % Absolute Neutrophils Absolute Lymphocytes Absolute Monocytes Absolute Eosinophils Absolute Basophils Sodium Potassium Chloride Carbon Dioxide Anion Gap BUN Creatinine Est GFR ( Amer) Est GFR (Non-Af Amer) Glucose Calcium Total Bilirubin Direct Bilirubin Neonat Total Bilirubin Neonat Direct Bilirubin Neonat Indirect Bili AST ALT Alkaline Phosphatase Creatine Kinase CK-MB (CK-2) Troponin I Total Protein Albumin Triglycerides Cholesterol LDL Cholesterol Direct VLDL Cholesterol HDL Cholesterol TSH 1.31 Urine Color STRAW Urine Appearance CLEAR Urine pH 7.0 Ur Specific [place] 1.009 Urine Protein 30 H Urine Glucose (UA) NEGATIVE Urine Ketones TRACE H Urine Blood NEGATIVE Urine Nitrite NEGATIVE Urine Bilirubin NEGATIVE Urine Urobilinogen NEGATIVE Ur Leukocyte Esterase NEGATIVE Urine RBC (Auto) 1 Urine Mucus (Auto) RARE Urine Ascorbic Acid NEGATIVE Chest X-Ray 01/16/19 10:30 IMPRESSION: NO ACUTE RADIOGRAPHIC FINDING IN THE CHEST. Head CT 01/16/19 10:30 IMPRESSION: CHRONIC CHANGES OF ATROPHY AND MICROVASCULAR ISCHEMIA. NO ACUTE PROCESS. EVIDENCE OF ACUTE STROKE: NO. Head MRI 01/16/19 12:13 IMPRESSION: 1. Small acute infarcts in the right and left centrum semiovale. These measure only 3 to 4 mm in greatest diameter. 2. Generalized atrophy and small-vessel ischemic change. EVIDENCE OF ACUTE STROKE: YES. She has evidence of an acute stroke. Not hemorrhagic. Her blood pressure is coming back down to normal. I have consulted with the hospitalist and we will admit at this time for further evaluation and treatment. She does not meet criteria for thrombolytics as these symptoms have been present for several days. - Vital Signs Vital signs: Temp Pulse Resp BP Pulse Ox 97.3 F 17 154/89 H 99 01/16/19 10:12 01/16/19 14:00 01/16/19 13:02 01/16/19 14:00 - Laboratory Result Diagrams: 01/16/19 10:25 01/16/19 10:25 Laboratory results interpreted by me: 01/16/19 01/16/19 10:25 11:35 Glucose 137 H Calcium 10.3 H Cholesterol 206.04 H Urine Protein 30 H Urine Ketones TRACE H Discharge - Discharge Clinical Impression: Acute thrombotic stroke Condition: Good Disposition: ADMITTED INPATIENT Admitting Provider: Hospitalist - [facility] Unit Admitted: [facility] Referrals: HARIKA BENITEZ MD [Primary Care Provider] - Follow up as needed
[2019-01-16] MEDS ORDERED: RAMIPRIL 10 MG CAPSULE PO ONE (10:36)
[2019-01-16] MEDS ORDERED: HYDROCHLOROTHIAZIDE 25 MG TABLET PO ONE (10:36)
--- NOTE | 2019-01-16 10:56 | RADIOLOGY REPORT (SQ) ---
EXAM DESCRIPTION: CT HEAD WITHOUT COMPLETED DATE/TIME: 01/16/2019 10:49 am REASON FOR STUDY: diplopia COMPARISON: None. TECHNIQUE: Axial images acquired through the brain without intravenous contrast. Images reviewed wi th bone, brain and subdural windows. Additional sagittal and coronal reconstructions were generated. Images stored on PACS. All CT scanners at this facility use dose modulation, iterative reconstruction, and/or weight based d osing when appropriate to reduce radiation dose to as low as reasonably achievable (ALARA). [facility]: Dose Right [facility]: CareDose [facility]: Dose Right [facility]: Teradose 4D [facility]: [employer]Nature RADIATION DOSE: CT Rad equipment meets quality standard of care and radiation dose reduction techniq ues were employed. CTDIvol: 53.2 mGy. DLP: 1070 mGy-cm.mGy. LIMITATIONS: None. FINDINGS: VENTRICLES: Prominent. CEREBRUM: No masses. No hemorrhage. No midline shift. Areas of low density in the white matter mos t likely due to chronic micro-vascular ischemic change. No evidence for acute infarction. CEREBELLUM: No masses. No hemorrhage. No alteration of density. No evidence for acute infarction. EXTRAAXIAL SPACES: Age-related involutional change. No fluid collections. No masses. ORBITS AND GLOBE: No intra- or extraconal masses. Normal contour of globe without masses. CALVARIUM: No fracture. PARANASAL SINUSES: No fluid or mucosal thickening. SOFT TISSUES: No mass or hematoma. OTHER: No other significant finding. IMPRESSION: CHRONIC CHANGES OF ATROPHY AND MICROVASCULAR ISCHEMIA. NO ACUTE PROCESS. EVIDENCE OF ACUTE STROKE: NO. TECHNICAL DOCUMENTATION: JOB ID: [id number] Quality ID # [id number]: Final reports with documentation of one or more dose reduction techniques (e.g., Au tomated exposure control, adjustment of the mA and/or kV according to patient size, use of iterative reconstruction technique) 2010 [employer]- All Rights Reserved Reading location - IP/workstation name: [email or web address]
[2019-01-16 11:01] LABS: ABSOLUTE BASOPHILS # (AUTO) 0.1 10^3/uL (0.0-0.2); ABSOLUTE EOSINOPHILS # (AUTO) 0.1 10^3/uL (0.0-0.6); ABSOLUTE LYMPHOCYTES (AUTO) 1.9 10^3/uL (0.5-4.7); ABSOLUTE MONOCYTES (AUTO) 0.2 10^3/uL (0.1-1.4); ABSOLUTE NEUT (AUTO) 2.3 10^3/uL (1.7-8.2); BASOPHILS % (AUTO) 1.3 % (0-2); EOSINOPHILS % (AUTO) 2.5 % (0-6); HEMATOCRIT 39.1 % (36.0-47.0); HEMOGLOBIN 13.3 g/dL (12.0-15.5); LYMPHOCYTES % (AUTO) 42.1 % (13-45); MEAN CORPUSCULAR HEMOGLOBIN 30.4 pg (27.0-33.4); MEAN CORPUSCULAR HGB CONC 34.1 g/dL (32.0-36.0); MEAN CORPUSCULAR VOLUME 89 fl (80-97); MONOCYTES % (AUTO) 3.4 % (3-13); PLATELET COUNT 205 10^3/uL (150-450); RED BLOOD COUNT 4.39 10^6/uL (3.72-5.28); RED CELL DISTRIBUTION WIDTH 13.3 % (11.5-14.0); SEGMENTED NEUTROPHILS % (AUTO) 50.7 % (42-78); TOTAL CELLS COUNTED % (AUTO) 100 %; WHITE BLOOD COUNT 4.5 10^3/uL (4.0-10.5)
--- NOTE | 2019-01-16 11:10 | RADIOLOGY REPORT (SQ) ---
EXAM DESCRIPTION: CHEST SINGLE VIEW COMPLETED DATE/TIME: 01/16/2019 11:00 am REASON FOR STUDY: cough COMPARISON: None. EXAM PARAMETERS: NUMBER OF VIEWS: One view. TECHNIQUE: Single frontal radiographic view of the chest acquired. RADIATION DOSE: NA LIMITATIONS: None. FINDINGS: LUNGS AND PLEURA: No opacities, masses or pneumothorax. No pleural effusion. MEDIASTINUM AND HILAR STRUCTURES: No masses. Contour normal. HEART AND VASCULAR STRUCTURES: Heart normal in size. Normal vasculature. BONES: No acute findings. HARDWARE: None in the chest. OTHER: No other significant finding. IMPRESSION: NO ACUTE RADIOGRAPHIC FINDING IN THE CHEST. TECHNICAL DOCUMENTATION: JOB ID: [id number] [employer]- All Rights Reserved Reading location - IP/workstation name: [email or web address]
[2019-01-16 11:21] LABS: ALANINE AMINOTRANSFERASE 30 U/L (9-52); ALBUMIN 4.2 g/dL (3.5-5.0); ALKALINE PHOSPHATASE 112 U/L (38-126); ANION GAP 11 (5-19); ASPARTATE AMINO TRANSFERASE 22 U/L (14-36); BILIRUBIN,DIRECT 0.1 mg/dL (0.0-0.4); BILIRUBIN,TOTAL 0.5 mg/dL (0.2-1.3); BLOOD UREA NITROGEN 18 mg/dL (7-20); CALCIUM 10.3 mg/dL (8.4-10.2); CARBON DIOXIDE 27 mmol/L (22-30); CHLORIDE 102 mmol/L (98-107); CHOLESTEROL 206.04 mg/dL (0-200); CREATINE KINASE 34 U/L (30-135); GLUCOSE 137 mg/dL (75-110); POTASSIUM 4.4 mmol/L (3.6-5.0); SODIUM 139.8 mmol/L (137-145); TOTAL PROTEIN 7.7 g/dL (6.3-8.2); TRIGLYCERIDES 84 mg/dL (<150)
[2019-01-16 11:27] LABS: CREATINE KINASE MB < 0.22 ng/mL (<4.55)
[2019-01-16 11:28] LABS: TROPONIN I < 0.012 ng/mL
[2019-01-16 11:32] LABS: DIRECT LDL 94 mg/dL (<100)
[2019-01-16 12:03] LABS: APPEARANCE,URINE CLEAR; BILIRUBIN,URINE NEGATIVE (NEGATIVE); COLOR,URINE STRAW; GLUCOSE, URINE NEGATIVE (NEGATIVE); KETONES,URINE TRACE mg/dL (NEGATIVE); LEUKOCYTE ESTERASE,URINE NEGATIVE (NEGATIVE); NITRITE,URINE NEGATIVE (NEGATIVE); PROTEIN,URINE 30 mg/dL (NEGATIVE); URINE SPECIFIC GRAVITY 1.009; UROBILINOGEN,URINE NEGATIVE mg/dL (<2.0)
--- NOTE | 2019-01-16 16:08 | RADIOLOGY REPORT (SQ) ---
EXAM DESCRIPTION: MRI HEAD WITHOUT COMPLETED DATE/TIME: 01/16/2019 4:01 pm REASON FOR STUDY: diplopia, weakness COMPARISON: CT brain done earlier the same day, MR brain dated 09/06/2016 TECHNIQUE: Multiplanar imaging includes non-contrasted T1, T2, FLAIR, and diffusion with ADC map seq uences. Images stored on PACS. LIMITATIONS: None. FINDINGS: ANATOMY: No anomalies. Normal vascular flow voids. Pituitary fossa normal. CSF SPACES: Atrophy induced prominence of ventricles and CSF spaces. CEREBRUM: High signal intensity lesions scattered throughout the white matter on FLAIR imaging with d istribution suggesting micro-vascular ischemic changes. No evidence of hemorrhage, mass, or extraaxi al fluid collection. POSTERIOR FOSSA: No signal alteration. No hemorrhage. No edema, masses or mass effect. Internal florinda tory canals, cerebello-pontine angles, mastoids normal. DIFFUSION IMAGING: There are areas of abnormal diffusion in the right and left centrum semiovale thes e measure only 3 to 4 mm in size. But are consistent with acute ischemic change. ORBITS: No masses. Globes normal. PARANASAL SINUSES: There is extensive sphenoid air cell disease. OTHER: No other significant finding. IMPRESSION: 1. Small acute infarcts in the right and left centrum semiovale. These measure only 3 t o 4 mm in greatest diameter. 2. Generalized atrophy and small-vessel ischemic change. EVIDENCE OF ACUTE STROKE: YES. TECHNICAL DOCUMENTATION: JOB ID: [id number] [employer]- All Rights Reserved Reading location - IP/workstation name: [email or web address]
[2019-01-16] MEDS ORDERED: DEXTROSE 40% GEL 15 GM TUBE PO PRN ×4 (18:15→18:24)
[2019-01-16] MEDS ORDERED: ACETAMINOPHEN 325 MG TABLET PO PRN (18:15)
[2019-01-16] MEDS ORDERED: PROMETHAZINE HCL INJ 25 MG/1 ML VIAL IV PRN (18:15)
[2019-01-16] MEDS ORDERED: GLUCAGON,HUMAN RECOMB 1 MG INJ SUBCUT PRN (18:15)
[2019-01-16] MEDS ORDERED: DEXTROSE 50%-WATER 25 GM/50 ML DISP.SYRIN IV PRN ×4 (18:15→18:24)
[2019-01-16] MEDS ORDERED: GLUCAGON,HUMAN RECOMB 1 MG INJ IM PRN (18:24)
[2019-01-16] MEDS: DEXTROSE 5%-NORMAL SALINE 1,000 ML IV PRN (18:39)
[2019-01-16] MEDS: FAMOTIDINE INJ/PF 20 MG/2 ML SDV IV SCH (18:42)
[2019-01-16] MEDS: RAMIPRIL 10 MG CAPSULE PO SCH (19:10)
--- NOTE | 2019-01-16 20:34 | PDOC H&P ---
History of Present Illness Admission Date/PCP: 01/16/19 17:18 HARIKA BENITEZ MD History of Present Illness: ELÍAS ANDRADE is a 73 year old female past medical history of hypertension, dysl ipidemia, multiple CVAs with residual left-sided weakness ambulating with a walker, dysphagia was brought in by her planing of worsening weakness, lethargy, diplopia. Patient was at her baseline about 3 weeks ago ambulating with the help of a walker. Has been progressively getting weak, has been noticed that patient was complaining of diplopia and he noticed that her right eye was deviating to the right side. She is denying any headache, nausea, vomiting, diarrhea, constipation, chest pain, shortness of breath, urinary symptoms. Past Medical History Cardiac Medical History: Reports: Hypertension Denies: Congestive Heart Failure, DVT, Myocardial Infarction, Hyperlipidema, Pulmonary Embolism Pulmonary Medical History: Reports: Bronchitis Denies: Asthma, Chronic Obstructive Pulmonary Disease (COPD), Pneumonia Neurological Medical History: Denies: Seizures Endocrine Medical History: Reports: Diabetes Mellitus Type 2 Denies: Diabetes Mellitus Type 1, Hyperthyroidism, Hypothyroidism GI Medical History: Reports: Gastroesophageal Reflux Disease, Other - Dysphagia Denies: Cirrhosis, Hepatitis Musculoskeltal Medical History: Denies: Arthritis Psychiatric Medical History: Denies: Depression Hematology: Reports: Anemia Past Surgical History Past Surgical History: Reports: Hysterectomy Denies: Pacemaker Social History Lives with: Spouse/Significant other Smoking Status: Never Smoker Frequency of Alcohol Use: None Hx Recreational Drug Use: No Drugs: None Hx Prescription Drug Abuse: No Family History Family History: Reviewed & Not Pertinent Parental Family History Reviewed: Yes Children Family History Reviewed: Yes Sibling(s) Family History Reviewed.: Yes Medication/Allergy Home Medications: Aspirin [Ecotrin 325 mg EC Tablet] 325 mg PO DAILY 01/16/19 Atorvastatin Calcium [Lipitor 20 mg Tablet] 20 mg PO QPM 01/16/19 Hydrochlorothiazide [Hydrodiuril 25 mg Tablet] 25 mg PO DAILY 01/16/19 Metformin HCl [Glucophage 500 mg Tablet] 500 mg PO [id number] PRN 01/16/19 Ramipril [Altace 10 mg Capsule] 10 mg PO BID 01/16/19 Allergies/Adverse Reactions: No Known Allergies Allergy (Verified 01/16/19 16:22) Review of Systems Review of Systems: Per HPI. Physical Exam Vital Signs: Temp Pulse Resp BP Pulse Ox 98.7 F 59 L 18 178/96 H 100 01/16/19 18:21 01/16/19 18:18 01/16/19 20:02 01/16/19 20:02 01/16/19 20:02 Intake & Output 01/15/19 01/16/19 01/17/19 06:59 06:59 06:59 Weight 71.2 kg General appearance: PRESENT: no acute distress, cooperative Head exam: PRESENT: atraumatic, normocephalic Eye exam: PRESENT: EOMI, PERRLA - Right eye deviated to the right side. Neck exam: ABSENT: carotid bruit, JVD, lymphadenopathy, thyromegaly Respiratory exam: PRESENT: clear to auscultation gwendolyn. ABSENT: rales, rhonchi, wheezes Cardiovascular exam: PRESENT: RRR. ABSENT: diastolic murmur, rubs, systolic murmur Extremities exam: PRESENT: full ROM. ABSENT: calf tenderness, clubbing, pedal edema Neurological exam: PRESENT: alert, altered, awake, oriented to person, oriented to place, oriented to time, reflexes normal, CN II-XII grossly intact - Right eye deviating to the right side., motor sensory deficit - Left upper/lower extremity strength 3 out of 5. Right upper/lower extremity strength 4 out of 5. Results Laboratory Results: 01/16/19 10:25 01/16/19 10:25 01/16/19 01/16/19 01/16/19 10:25 10:25 10:25 WBC 4.5 RBC 4.39 Hgb 13.3 Hct 39.1 MCV 89 MCH 30.4 MCHC 34.1 RDW 13.3 Plt Count 205 Seg Neutrophils % 50.7 Lymphocytes % 42.1 Monocytes % 3.4 Eosinophils % 2.5 Basophils % 1.3 Absolute Neutrophils 2.3 Absolute Lymphocytes 1.9 Absolute Monocytes 0.2 Absolute Eosinophils 0.1 Absolute Basophils 0.1 Sodium 139.8 Potassium 4.4 Chloride 102 Carbon Dioxide 27 Anion Gap 11 BUN 18 Creatinine 0.69 Est GFR ( Amer) > 60 Est GFR (Non-Af Amer) > 60 Glucose 137 H Calcium 10.3 H Total Bilirubin 0.5 AST 22 ALT 30 Alkaline Phosphatase 112 Total Protein 7.7 Albumin 4.2 Triglycerides 84 Cholesterol 206.04 H LDL Cholesterol Direct 94 VLDL Cholesterol 17.0 HDL Cholesterol 83 TSH 1.31 Urine Color Urine Appearance Urine pH Ur Specific [place] Urine Protein Urine Glucose (UA) Urine Ketones Urine Blood Urine Nitrite Ur Leukocyte Esterase Urine RBC (Auto) 01/16/19 11:35 WBC RBC Hgb Hct MCV MCH MCHC RDW Plt Count Seg Neutrophils % Lymphocytes % Monocytes % Eosinophils % Basophils % Absolute Neutrophils Absolute Lymphocytes Absolute Monocytes Absolute Eosinophils Absolute Basophils Sodium Potassium Chloride Carbon Dioxide Anion Gap BUN Creatinine Est GFR ( Amer) Est GFR (Non-Af Amer) Glucose Calcium Total Bilirubin AST ALT Alkaline Phosphatase Total Protein Albumin Triglycerides Cholesterol LDL Cholesterol Direct VLDL Cholesterol HDL Cholesterol TSH Urine Color STRAW Urine Appearance CLEAR Urine pH 7.0 Ur Specific [place] 1.009 Urine Protein 30 H Urine Glucose (UA) NEGATIVE Urine Ketones TRACE H Urine Blood NEGATIVE Urine Nitrite NEGATIVE Ur Leukocyte Esterase NEGATIVE Urine RBC (Auto) 1 01/16/19 01/16/19 10:25 10:25 Creatine Kinase 34 CK-MB (CK-2) < 0.22 Troponin I < 0.012 Impressions: Chest X-Ray 01/16/19 10:30 IMPRESSION: NO ACUTE RADIOGRAPHIC FINDING IN THE CHEST. Head CT 01/16/19 10:30 IMPRESSION: CHRONIC CHANGES OF ATROPHY AND MICROVASCULAR ISCHEMIA. NO ACUTE PROCESS. EVIDENCE OF ACUTE STROKE: NO. Head MRI 01/16/19 12:13 IMPRESSION: 1. Small acute infarcts in the right and left centrum semiovale. These measure only 3 to 4 mm in greatest diameter. 2. Generalized atrophy and small-vessel ischemic change. EVIDENCE OF ACUTE STROKE: YES. Assessment and Plan - Diagnosis (1) Acute CVA (cerebrovascular accident) Is this a current diagnosis for this admission?: Yes Plan: Not a TPA candidate. Admit to IM. Increase aspirin to 325, atorvastatin to 80 mg nightly. Monitor and optimize blood pressure. PT, OT, ST. 2D echo, carotid Doppler. Patient will need placement for inpatient rehab. (2) Diabetes mellitus type 2 in nonobese Is this a current diagnosis for this admission?: No Plan: Accu-Chek, long-acting insulin, pre-meal insulin, sliding scale insulin, diabetic diet. (3) Diplopia Is this a current diagnosis for this admission?: Yes (4) Hypercholesterolemia Is this a current diagnosis for this admission?: Yes Plan: High intensity statins. (5) Balance problem Is this a current diagnosis for this admission?: No Plan: Due to recurrent multiple stroke. Continue physical therapy. Inpatient rehab placement. (6) HTN (hypertension) Qualifiers: Hypertension type: essential hypertension Qualified Code(s): I10 - Essen tial (primary) hypertension Is this a current diagnosis for this admission?: No Plan: Continue current meds. Optimize blood pressure medications. (7) History of CVA (cerebrovascular accident) Is this a current diagnosis for this admission?: No Plan: Continue statins, aspirin. Optimize blood pressure. PT OT ST. (8) Physical deconditioning Is this a current diagnosis for this admission?: Yes Plan: Due to recurrent multiple strokes. Continue PT, OT. Inpatient rehab placement.
--- NOTE | 2019-01-16 20:51 | EKG REPORT ---
SEVERITY:- NORMAL ECG - SINUS RHYTHM : Confirmed by: Judy Wilkins MD 16-Jan-2019 20:51:14
[2019-01-16] MEDS: IPRATROPIUM/ALBUTEROL 0.5-2.5 MG/3 ML AMPUL NEB SCH (21:18)
[2019-01-16 21:34] LABS: URINE AMPHETAMINES SCREEN NEGATIVE; URINE BARBITURATES SCREEN NEGATIVE; URINE BENZODIAZEPINES SCREEN NEGATIVE; URINE COCAINE SCREEN NEGATIVE; URINE MARIJUANA (THC) SCREEN NEGATIVE; URINE METHADONE SCREEN NEGATIVE; URINE PHENCYCLIDINE SCREEN NEGATIVE
--- NOTE | 2019-01-16 21:47 | XCELERA REPORT ---
[address] [address] Transthoracic Echocardiogram Report Name: ELÍAS ANDRADE Age: 73 yrs Gender: Female : 1945 Patient Status: Inpatient Patient Location: [place] [id number]^A Study Date: 01/16/2019 07:23 PM Height: 67 in Weight: 156 lb BSA: 1.8 m2 Procedure: A two-dimensional transthoracic echocardiogram with color flow Doppler was performed. Study Quality: Fair. Reason For Study: Recurrent CVA History: CVA. Ordering Physician: JESSA ADLER Performed By: Le Gayle Interpretation Summary There is no obvious cardiac source of embolus noted on this transthoracic echocardiogram. Follow-up with a FAISAL is suggested if cardiac source is still suspected. The left ventricle is normal in size. There is normal left ventricular wall thickness. The left ventricular ejection fraction is within normal limits. LV EF is > than 60% Doppler measurements suggest impaired left ventricular relaxation, which is associated with grade I/IV or mild diastolic dysfunction The left ventricular wall motion is normal. There is no thrombus. Probably no VSD ,ASD or PFO. The right ventricle is normal in size and function. The right atrium is mildly dilated. The left atrium is mildly dilated. There is no evidence of mitral valve prolapse. There is no vegetation seen on the mitral valve. There is no mitral valve stenosis. There is a mild to moderate amount of mitral regurgitation There is no aortic valvular vegetation. There is no aortic valve stenosis There is aortic sclerosis without aortic stenosis. There is no LVOT obstruction. No aortic regurgitation is present. There is no tricuspid stenosis. There is a mild to moderate amount of tricuspid regurgitation There is moderate pulmonary hypertension by echo RVSP is 53 to 58 mm of Hg , with RA mean of 5 to 10. The inferior vena cava appeared normal and decreased > 50% with respiration (RAP 5-10 mmHg) The inferior vena cava was not well visualized There is no pericardial effusion. There is no obvious cardiac source of embolus noted on this transthoracic echocardiogram. Follow-up with a FAISAL is suggested if cardiac source is still suspected MMode/2D Measurements & Calculations RVDd: 2.4 cm LVIDd: 3.8 cm FS: 33.0 % Ao root diam: 2.2 cm IVSd: 1.0 cm LVIDs: 2.5 cm EDV(Teich): 61.2 ml Ao root area: 3.7 cm2 LVPWd: 0.87 cm ESV(Teich): 23.1 ml LA dimension: 2.6 cm EF(Teich): 62.3 % Doppler Measurements & Calculations MV E max sabina: MV P1/2t max sabina: Ao V2 max: LV V1 max P.7 cm/sec 105.7 cm/sec 162.9 cm/sec 5.7 mmHg MV A max sabina: MV P1/2t: 53.1 msec Ao max PG: LV V1 max: 128.9 cm/sec MVA(P1/2t): 4.1 cm2 10.6 mmHg 119.0 cm/sec MV E/A: 0.63 MV dec slope: 583.1 cm/sec2 MV dec time: 0.24 sec PA V2 max: PI end-d sabina: TR max sabina: MV P1/2t-pr_phl: 118.1 cm/sec 122.2 cm/sec 346.1 cm/sec 53.1 msec PA max P.6 mmHg TR max P.9 mmHg Left Ventricle The left ventricle is normal in size. There is normal left ventricular wall thickness. The left ventricular ejection fraction is within normal limits. LV EF is > than 60%. Doppler measurements suggest impaired left ventricular relaxation, which is associated with grade I/IV or mild diastolic dysfunction. The left ventricular wall motion is normal. There is no thrombus. Probably no VSD ,ASD or PFO. Right Ventricle The right ventricle is normal in size and function. Atria The right atrium is mildly dilated. The left atrium is mildly dilated. Mitral Valve There is mild mitral annular calcification. There is no evidence of mitral valve prolapse. There is no vegetation seen on the mitral valve. There is no mitral valve stenosis. There is a mild to moderate amount of mitral regurgitation. Aortic Valve There is no aortic valvular vegetation. There is no aortic valve stenosis. There is aortic sclerosis without aortic stenosis. There is no LVOT obstruction. No aortic regurgitation is present. Tricuspid Valve There is no tricuspid stenosis. There is a mild to moderate amount of tricuspid regurgitation. There is moderate pulmonary hypertension by echo. RVSP is 53 to 58 mm of Hg , with RA mean of 5 to 10. Great Vessels The aortic root is normal size. The inferior vena cava was not well visualized. The inferior vena cava appeared normal and decreased > 50% with respiration (RAP 5-10 mmHg). Effusions There is no pericardial effusion. : JESSA ADLER > Judy Wilkins
[2019-01-16] MEDS ORDERED: (PENDING PHARMACY ID) (Difluprednate [Durezol] 1 DROP) OS SCH (22:00)
[2019-01-16] MEDS ORDERED: INSULIN LISPRO 100 UNIT/ML 3 ML VIAL SUBCUT SCH (22:00)
--- NOTE | 2019-01-16 23:41 | RADIOLOGY REPORT (SQ) ---
EXAM DESCRIPTION: US CAROTID DOPPLER BILATERAL COMPLETED DATE/TME: 01/16/2019 00:00 CLINICAL HISTORY: 73 years Female, CVA Comparison: 09/06/16 TECHNIQUE: Doppler sonogram LIMITATIONS: None. FINDINGS: RIGHT SIDE Peak systolic velocity (PSV) and End diastolic velocity (EDV) listed below. RCCA - Common carotid artery PSV: 69 cm/s EDV: 8 cm/s CRISS - Internal carotid artery PSV: 60 cm/s EDV: 11 cm/s CRISS/RCCA: RECA - External carotid artery PSV: 234 cm/s RVA - Vertebral artery Antegrade Other: Mild partially calcified plaque of the proximal ICA. LEFT SIDE Peak systolic velocity (PSV) and End diastolic velocity (EDV) listed below. LCCA - Common carotid artery PSV: 100 cm/s EDV: 9 cm/s LICA - Internal carotid artery PSV: 138 cm/s EDV: 20 cm/s LICA/LCCA: LECA - External carotid artery PSV: 107 cm/s LVA - Vertebral artery Antegrade Other: Moderate mildly calcified plaque of the proximal ICA. Impression: 1. Right internal carotid artery: <50% stenosis. 2. Left internal carotid artery: 50% to 69% stenosis.
[2019-01-17] MEDS: ATORVASTATIN CALCIUM 80 MG TABLET PO SCH ×2 (00:02→21:34)
[2019-01-17] MEDS: ASPIRIN 325 MG TABLET, ENT COATED PO SCH ×2 (00:02→09:08)
[2019-01-17] MEDS: HEPARIN SOD (PORCINE) 5,000 UNIT/ML 1 ML SYRINGE SUBCUT SCH ×4 (00:06→21:34)
[2019-01-17] MEDS: FAMOTIDINE INJ/PF 20 MG/2 ML SDV IV SCH ×3 (00:11→21:35)
[2019-01-17] MEDS: IPRATROPIUM/ALBUTEROL 0.5-2.5 MG/3 ML AMPUL NEB SCH ×4 (01:55→20:14)
[2019-01-17 04:46] LABS: ABSOLUTE EOSINOPHILS # (AUTO) 0.1 10^3/uL (0.0-0.6); ABSOLUTE LYMPHOCYTES (AUTO) 1.7 10^3/uL (0.5-4.7); ABSOLUTE MONOCYTES (AUTO) 0.2 10^3/uL (0.1-1.4); ABSOLUTE NEUT (AUTO) 2.5 10^3/uL (1.7-8.2); BASOPHILS % (AUTO) 0.7 % (0-2); EOSINOPHILS % (AUTO) 2.1 % (0-6); HEMATOCRIT 33.4 % (36.0-47.0); HEMOGLOBIN 11.5 g/dL (12.0-15.5); MEAN CORPUSCULAR HEMOGLOBIN 30.2 pg (27.0-33.4); MEAN CORPUSCULAR HGB CONC 34.3 g/dL (32.0-36.0); MEAN CORPUSCULAR VOLUME 88 fl (80-97); MONOCYTES % (AUTO) 5.1 % (3-13); PLATELET COUNT 206 10^3/uL (150-450); RED CELL DISTRIBUTION WIDTH 13.1 % (11.5-14.0); SEGMENTED NEUTROPHILS % (AUTO) 55.1 % (42-78); TOTAL CELLS COUNTED % (AUTO) 100 %; WHITE BLOOD COUNT 4.6 10^3/uL (4.0-10.5)
[2019-01-17 05:12] LABS: ALANINE AMINOTRANSFERASE 19 U/L (9-52); ALBUMIN 3.3 g/dL (3.5-5.0); ALKALINE PHOSPHATASE 86 U/L (38-126); ANION GAP 6 (5-19); ASPARTATE AMINO TRANSFERASE 17 U/L (14-36); BILIRUBIN,DIRECT 0.2 mg/dL (0.0-0.4); BILIRUBIN,TOTAL 0.4 mg/dL (0.2-1.3); BLOOD UREA NITROGEN 17 mg/dL (7-20); CALCIUM 9.6 mg/dL (8.4-10.2); CARBON DIOXIDE 25 mmol/L (22-30); CHLORIDE 106 mmol/L (98-107); GLUCOSE 221 mg/dL (75-110); POTASSIUM 3.6 mmol/L (3.6-5.0); SODIUM 137.3 mmol/L (137-145); TOTAL PROTEIN 6.4 g/dL (6.3-8.2)
[2019-01-17] MEDS: DEXTROSE 5%-NORMAL SALINE 1,000 ML IV PRN (05:32)
[2019-01-17] MEDS: INSULIN LISPRO 100 UNIT/ML 3 ML VIAL SUBCUT SCH ×5 (06:20→21:34)
[2019-01-17] MEDS ORDERED: LABETALOL HCL INJ 20 MG/4 ML DISP.SYRIN IV PRN (07:51)
[2019-01-17] MEDS: HYDRALAZINE HCL INJ/PF 20 MG/1 ML SDV IV PRN (09:08)
[2019-01-17] MEDS: RAMIPRIL 10 MG CAPSULE PO SCH ×2 (09:08→21:25)
[2019-01-17] MEDS: HYDROCHLOROTHIAZIDE 25 MG TABLET PO SCH (09:08)
[2019-01-17] MEDS: DOCUSATE SODIUM 100 MG CAPSULE PO SCH ×2 (09:08→17:21)
--- NOTE | 2019-01-17 09:56 | PDOC PROGRESS REPORT ---
Subjective Progress Note for:: 01/17/19 Subjective:: ELÍAS ANDRADE is a 73 year old female past medical history of hypertension, dyslipidemia, multiple CVAs with residual left-sided weakness ambulating with a walker, dysphagia was brought in by her planing of worsening weakness, lethargy, diplopia. Patient was at her baseline about 3 weeks ago ambulating with the help of a walker. Has been progressively getting weak, has been noticed that patient was complaining of diplopia and he noticed that her right eye was deviating to the right side. 01/17/2019. No acute events overnight. Patient has failed her swallow eval by nursing staff twice. Her diplopia has improved and her weakness also has improved since yesterday. She is alert oriented x3 cooperative with physical examination. Denies any fever, chills, nausea, vomiting, diarrhea, constipation or any urinary symptoms. Reason For Visit: ACUTE CVA, DECONDITIONING Physical Exam Vital Signs: Temp Pulse Resp BP Pulse Ox 97.6 F 63 16 176/67 H 96 01/17/19 08:22 01/17/19 08:37 01/17/19 08:37 01/17/19 08:22 01/17/19 08:37 Intake & Output 01/16/19 01/17/19 01/18/19 06:59 06:59 06:59 Intake Total 871 Balance 871 Weight 67.8 kg General appearance: PRESENT: no acute distress, well-developed, well-nourished Eye exam: PRESENT: conjunctiva pink, EOMI - Right eye deviated to the right., PERRLA. ABSENT: scleral icterus Respiratory exam: PRESENT: clear to auscultation gwendolyn. ABSENT: rales, rhonchi, wheezes Cardiovascular exam: PRESENT: RRR. ABSENT: diastolic murmur, rubs, systolic murmur Extremities exam: PRESENT: full ROM. ABSENT: calf tenderness, clubbing, pedal edema Neurological exam: PRESENT: alert, awake, oriented to person, oriented to place, oriented to time, oriented to situation, reflexes normal, CN II-XII grossly intact, motor sensory deficit - RU/L Ex St 4/5, MARGARET/L Ex 3/5 Results Laboratory Results: 01/17/19 04:34 01/17/19 04:34 01/16/19 01/16/19 01/16/19 10:25 10:25 10:25 WBC 4.5 RBC 4.39 Hgb 13.3 Hct 39.1 MCV 89 MCH 30.4 MCHC 34.1 RDW 13.3 Plt Count 205 Seg Neutrophils % 50.7 Lymphocytes % 42.1 Monocytes % 3.4 Eosinophils % 2.5 Basophils % 1.3 Absolute Neutrophils 2.3 Absolute Lymphocytes 1.9 Absolute Monocytes 0.2 Absolute Eosinophils 0.1 Absolute Basophils 0.1 Sodium 139.8 Potassium 4.4 Chloride 102 Carbon Dioxide 27 Anion Gap 11 BUN 18 Creatinine 0.69 Est GFR ( Amer) > 60 Est GFR (Non-Af Amer) > 60 Glucose 137 H Calcium 10.3 H Magnesium Total Bilirubin 0.5 AST 22 ALT 30 Alkaline Phosphatase 112 Ammonia Total Protein 7.7 Albumin 4.2 Triglycerides 84 Cholesterol 206.04 H LDL Cholesterol Direct 94 VLDL Cholesterol 17.0 HDL Cholesterol 83 TSH 1.31 Urine Color Urine Appearance Urine pH Ur Specific [place] Urine Protein Urine Glucose (UA) Urine Ketones Urine Blood Urine Nitrite Ur Leukocyte Esterase Urine RBC (Auto) 01/16/19 01/17/19 01/17/19 11:35 04:34 04:34 WBC 4.6 RBC 3.80 Hgb 11.5 L Hct 33.4 L MCV 88 MCH 30.2 MCHC 34.3 RDW 13.1 Plt Count 206 Seg Neutrophils % 55.1 Lymphocytes % 37.0 Monocytes % 5.1 Eosinophils % 2.1 Basophils % 0.7 Absolute Neutrophils 2.5 Absolute Lymphocytes 1.7 Absolute Monocytes 0.2 Absolute Eosinophils 0.1 Absolute Basophils 0.0 Sodium 137.3 Potassium 3.6 Chloride 106 Carbon Dioxide 25 Anion Gap 6 BUN 17 Creatinine 0.68 Est GFR ( Amer) > 60 Est GFR (Non-Af Amer) > 60 Glucose 221 H Calcium 9.6 Magnesium 1.6 Total Bilirubin 0.4 AST 17 ALT 19 Alkaline Phosphatase 86 Ammonia Total Protein 6.4 Albumin 3.3 L Triglycerides Cholesterol LDL Cholesterol Direct VLDL Cholesterol HDL Cholesterol TSH Urine Color STRAW Urine Appearance CLEAR Urine pH 7.0 Ur Specific [place] 1.009 Urine Protein 30 H Urine Glucose (UA) NEGATIVE Urine Ketones TRACE H Urine Blood NEGATIVE Urine Nitrite NEGATIVE Ur Leukocyte Esterase NEGATIVE Urine RBC (Auto) 1 01/17/19 04:34 WBC RBC Hgb Hct MCV MCH MCHC RDW Plt Count Seg Neutrophils % Lymphocytes % Monocytes % Eosinophils % Basophils % Absolute Neutrophils Absolute Lymphocytes Absolute Monocytes Absolute Eosinophils Absolute Basophils Sodium Potassium Chloride Carbon Dioxide Anion Gap BUN Creatinine Est GFR ( Amer) Est GFR (Non-Af Amer) Glucose Calcium Magnesium Total Bilirubin AST ALT Alkaline Phosphatase Ammonia < 8.7 L Total Protein Albumin Triglycerides Cholesterol LDL Cholesterol Direct VLDL Cholesterol HDL Cholesterol TSH Urine Color Urine Appearance Urine pH Ur Specific [place] Urine Protein Urine Glucose (UA) Urine Ketones Urine Blood Urine Nitrite Ur Leukocyte Esterase Urine RBC (Auto) 01/16/19 01/16/19 10:25 10:25 Creatine Kinase 34 CK-MB (CK-2) < 0.22 Troponin I < 0.012 Impressions: Chest X-Ray 01/16/19 10:30 IMPRESSION: NO ACUTE RADIOGRAPHIC FINDING IN THE CHEST. Head CT 01/16/19 10:30 IMPRESSION: CHRONIC CHANGES OF ATROPHY AND MICROVASCULAR ISCHEMIA. NO ACUTE PROCESS. EVIDENCE OF ACUTE STROKE: NO. Head MRI 01/16/19 12:13 IMPRESSION: 1. Small acute infarcts in the right and left centrum semiovale. These measure only 3 to 4 mm in greatest diameter. 2. Generalized atrophy and small-vessel ischemic change. EVIDENCE OF ACUTE STROKE: YES. Assessment and Plan - Diagnosis (1) Acute CVA (cerebrovascular accident) Is this a current diagnosis for this admission?: Yes Plan: Not a TPA candidate. Admit to IMCU. Increase aspirin to 325, atorvastatin to 80 mg nightly. Monitor and optimize blood pressure. Continue PT, OT, ST. 01/16/2019. Bilateral carotid Doppler stenosis 50-60%. 2D echo pending. Patient will need placement for inpatient rehab. (2) Diabetes mellitus type 2 in nonobese Is this a current diagnosis for this admission?: No Plan: Accu-Chek, long-acting insulin, pre-meal insulin, sliding scale insulin, diabetic diet. (3) Diplopia Is this a current diagnosis for this admission?: Yes Plan: Improved. Will place right eye patch. (4) Hypercholesterolemia Is this a current diagnosis for this admission?: Yes Plan: High intensity statins. (5) Balance problem Is this a current diagnosis for this admission?: No Plan: Due to recurrent multiple stroke and physical deconditioning. Continue physical therapy and occupational therapy. Plan to transfer to inpatient rehab upon discharge. (6) HTN (hypertension) Qualifiers: Hypertension type: essential hypertension Qualified Code(s): I10 - Essential (primary) hypertension Is this a current diagnosis for this admission?: No Plan: Continue current meds. Optimize blood pressure medications. (7) History of CVA (cerebrovascular accident) Is this a current diagnosis for this admission?: No Plan: Continue statins, aspirin. Optimize blood pressure. PT OT ST. (8) Physical deconditioning Is this a current diagnosis for this admission?: Yes Plan: Due to recurrent multiple strokes. Continue PT, OT. Inpatient rehab placement.
[2019-01-17] MEDS ORDERED: AMLODIPINE BESYLATE 5 MG TABLET PO SCH (10:00)
[2019-01-18] MEDS: IPRATROPIUM/ALBUTEROL 0.5-2.5 MG/3 ML AMPUL NEB SCH ×4 (02:20→20:29)
[2019-01-18] MEDS: HEPARIN SOD (PORCINE) 5,000 UNIT/ML 1 ML SYRINGE SUBCUT SCH ×3 (06:49→23:14)
[2019-01-18] MEDS: INSULIN LISPRO 100 UNIT/ML 3 ML VIAL SUBCUT SCH ×4 (10:44→23:15)
[2019-01-18] MEDS: ASPIRIN 325 MG TABLET, ENT COATED PO SCH (10:49)
[2019-01-18] MEDS: DOCUSATE SODIUM 100 MG CAPSULE PO SCH ×2 (10:49→17:37)
[2019-01-18] MEDS: HYDROCHLOROTHIAZIDE 25 MG TABLET PO SCH (10:49)
[2019-01-18] MEDS: FAMOTIDINE INJ/PF 20 MG/2 ML SDV IV SCH ×2 (10:49→23:15)
[2019-01-18] MEDS: RAMIPRIL 10 MG CAPSULE PO SCH ×2 (10:49→23:06)
--- NOTE | 2019-01-18 14:42 | PDOC PROGRESS REPORT ---
Subjective Progress Note for:: 01/18/19 Subjective:: This is a 73 year old female with a past medical history of hypertension, dyslipidemia, multiple CVAs with residual left-sided weakness ambulating with a walker, dysphagia was brought in by her due to worsening weakness, lethargy, and diplopia. She was found to have an acute CVA in the central [place] region. No acute event overnight. PT has recommended SNF/rehab due to her significant functional impairment. Discussed with patient and on bedside who was hesitant to have her placed. After he knew he learn that they have options on which facility to go, he is amenable for plan for placement. Patient does prefer to be placed as well. Will consult merchandise planner to initiate placement process. Reason For Visit: ACUTE CVA, DECONDITIONING Physical Exam Vital Signs: Temp Pulse Resp BP Pulse Ox 98.1 F 75 15 147/63 H 98 01/18/19 12:33 01/18/19 12:33 01/18/19 12:33 01/18/19 12:33 01/18/19 12:33 Intake & Output 01/17/19 01/18/19 01/19/19 06:59 06:59 06:59 Intake Total 871 943 200 Output Total 0 Balance 871 943 200 Weight 149 lb 7.574 oz 157 lb 6.561 oz General appearance: PRESENT: no acute distress, well-developed, well-nourished Head exam: PRESENT: atraumatic, normocephalic Eye exam: PRESENT: conjunctiva pink, EOMI, PERRLA. ABSENT: scleral icterus Ear exam: PRESENT: normal external ear exam Mouth exam: PRESENT: moist, tongue midline Neck exam: ABSENT: carotid bruit, JVD, lymphadenopathy, thyromegaly Respiratory exam: PRESENT: clear to auscultation gwendolyn. ABSENT: rales, rhonchi, wheezes Cardiovascular exam: PRESENT: RRR. ABSENT: diastolic murmur, rubs, systolic murmur GI/Abdominal exam: PRESENT: normal bowel sounds, soft. ABSENT: distended, guarding, mass, organolmegaly, rebound, tenderness Rectal exam: PRESENT: deferred Neurological exam: PRESENT: alert, awake, oriented to person, oriented to place, oriented to time, oriented to situation, CN II-XII grossly intact - +diplopia, motor sensory deficit - chronic [employer] Results Laboratory Results: 01/17/19 04:34 01/17/19 04:34 01/16/19 01/16/19 10:25 10:25 Creatine Kinase 34 CK-MB (CK-2) < 0.22 Troponin I < 0.012 Impressions: Chest X-Ray 01/16/19 10:30 IMPRESSION: NO ACUTE RADIOGRAPHIC FINDING IN THE CHEST. Head CT 01/16/19 10:30 IMPRESSION: CHRONIC CHANGES OF ATROPHY AND MICROVASCULAR ISCHEMIA. NO ACUTE PROCESS. EVIDENCE OF ACUTE STROKE: NO. Head MRI 01/16/19 12:13 IMPRESSION: 1. Small acute infarcts in the right and left centrum semiovale. These measure only 3 to 4 mm in greatest diameter. 2. Generalized atrophy and small-vessel ischemic change. EVIDENCE OF ACUTE STROKE: YES. Assessment and Plan - Diagnosis (1) Acute CVA (cerebrovascular accident) Is this a current diagnosis for this admission?: Yes Plan: Not a TPA candidate. MRI showed acute infarcts on the centrum [place]ov[place] region. Continue aspirin and statin. Will initiate process for SNF/rehab placement. (2) HTN (hypertension) Qualifiers: Hypertension type: essential hypertension Qualified Code(s): I10 - Essential (primary) hypertension Is this a current diagnosis for this admission?: No Plan: Continue ramipiril. - Time Time Spent with patient: 15-24 minutes
[2019-01-18] MEDS: NYSTATIN TOPICAL POWDER 15 GM TP SCH ×2 (15:22→17:38)
[2019-01-18] MEDS: ATORVASTATIN CALCIUM 80 MG TABLET PO SCH (23:04)
[2019-01-19] MEDS: IPRATROPIUM/ALBUTEROL 0.5-2.5 MG/3 ML AMPUL NEB SCH ×3 (01:57→14:14)
[2019-01-19] MEDS: HEPARIN SOD (PORCINE) 5,000 UNIT/ML 1 ML SYRINGE SUBCUT SCH ×3 (05:53→21:31)
--- NOTE | 2019-01-19 09:34 | ST Inp Modified Barium Swallow ---
Medical Diagnosis - Medical Diagnoses Medical Diagnosis Description & ICD-10 Code(s): acute CVA, dysphagia (R13.10) Inpatient MBS - General Date: 01/19/19 Date of Onset: 01/16/19 - admit date - History History Obtained From: Other - EMR -: Medical - per EMR: patient admitted 01/16/19 with worsening weakness and diplopia. Prior medical history includes hypertension, dyslipidemia, multiple CVAs with residual left side weakness, dysphagia. MRI was positive for acute stroke. Patient failed nursing swallow screen x2 due to coughing. Patient had prior MBSS completed 07/17/18 due to coughing with swallowing. This study revealed no apsiration or penetration, however, patient did cough fairly consistently when swallowing. Medications: Medications Reviewed Allergies: No known allergies - Subjective Current Nutritional Means: PO Current PO Diet: Mechanical - cut Current Symptoms: Coughing, Drooling Pain: Patient reports, 0/5 - Objective Assessment: Upright, Left Lateral - Food Trials Food Trials Used: Thin liquids, Pureed, Regular The Patient: Required Assist - Assessment Labial Function: Impaired - left side loss of secretions and liquids Lingual Function: Within Functional Limits Mandibular Function: Within Functional Limits Dentition: Partial Velo-Pharyngeal Function: Unremarkable - Pharyngeal Stage Initiation of Pharyngeal Stage: Delayed - triggered in pyriform sinus Decreased Laryngeal Elevation: No Reduced Velo-Pharyngeal Closure: no Reduced Pressure Generation: Yes Reduced Tongue Base Retraction: No Pre-Swallowing Pooling in Valleculae: Moderate Pre-Swallowing Pooling in Pyriforms: Moderate Reduced Thyro-Hyiod Approximation: No Reduced Epiglottic Excursion: No Reduced Pharyngeal Peristalsis: Yes Multiple Swallows With: Cleared w/ Dry Swallow Post Swallow Residuals in Valleculae: Mild Post Swallow Residuals in Pyriforms: Mild - Impression/Summary Laryngeal Penetration: No Tracheal Aspiration: no Compensatory Strategies: small bites and sips, alternating solids and liquids, no straws. Patient Presents With: Pharyngeal stage dysph., Mild-Moderate - Patient demonstrates consistently delayed swallow reflex, and residue in pyriform sinus. This residue will clear with dry swallow or liquid wash, however, patient needs to be cued to complete these. Coughing was still present with solid trials (leo crackers) x2, however, no aspiration or penetration was seen. This is consistent with prior MBSS results. Risk of Aspiration: Mild - Recommendations Solid Diet Recommendations: Mechanical Soft, Chopped Meat Liquid Diet Recommendations: Thin Dysphagia Therapy with PHYSICIAN SURGEON: Yes - for oral phase deficits Recommended Techniques: Fully Upright During Meal, Med Crushed in Applesauce, Small Bites and Sips, Alternate Bites/Sips - Time Total Time: 25 Total Timed Minutes: 25
--- NOTE | 2019-01-19 10:06 | RADIOLOGY REPORT (SQ) ---
EXAM DESCRIPTION: HEATHER SWALLOW COMPLETED DATE/TIME: 01/19/2019 9:20 am REASON FOR STUDY: assess change in swallow history of stroke COMPARISON: Cookie swallow 07/17/2018. TECHNIQUE: Videofluoroscopic swallowing examination was performed in conjunction with speech patholo gy. Videofluoroscopic imaging was obtained and reviewed and these are the findings: RADIATION DOSE: Fluoro time 2.54 minutes 1 images saved to PACS. LIMITATIONS: None FINDINGS: The patient was brought into the fluoro room and placed upright on a modified barium swall ow chair. The patient was then given multiple consistencies mixed with barium to swallow under live fluoroscopic video guidance. According to the Speech Pathologist there was no penetration or aspirat ion. Please refer to the speech pathology report for further details. IMPRESSION: NO EVIDENCE OF PENETRATION OR ASPIRATION. PLEASE SEE SPEECH PATHOLOGIST REPORT FOR OTHER FINDINGS AND RECOMMENDATIONS. COMMENT: None Quality ID [id number]: Final reports for procedures using fluoroscopy that document radiation exposure wendi carolee, or exposure time and number of fluorographic images (if radiation exposure indices are not avail able) TECHNICAL DOCUMENTATION: JOB ID: [id number] [employer]- All Rights Reserved Reading location - IP/workstation name: [email or web address] [id number]
[2019-01-19] MEDS: FAMOTIDINE INJ/PF 20 MG/2 ML SDV IV SCH ×2 (10:21→21:31)
[2019-01-19] MEDS: ASPIRIN 325 MG TABLET, ENT COATED PO SCH (10:22)
[2019-01-19] MEDS: RAMIPRIL 10 MG CAPSULE PO SCH ×2 (10:22→21:30)
[2019-01-19] MEDS: HYDROCHLOROTHIAZIDE 25 MG TABLET PO SCH (10:22)
[2019-01-19] MEDS: NYSTATIN TOPICAL POWDER 15 GM TP SCH ×3 (10:23→18:56)
[2019-01-19] MEDS: DOCUSATE SODIUM 100 MG CAPSULE PO SCH ×2 (10:31→18:45)
[2019-01-19] MEDS: INSULIN LISPRO 100 UNIT/ML 3 ML VIAL SUBCUT SCH ×4 (10:33→21:30)
[2019-01-19] MEDS ORDERED: IPRATROPIUM/ALBUTEROL 0.5-2.5 MG/3 ML AMPUL NEB PRN (14:37)
--- NOTE | 2019-01-19 14:51 | PDOC PROGRESS REPORT ---
Subjective Progress Note for:: 01/19/19 Subjective:: This is a 73 year old female with a past medical history of hypertension, dyslipidemia, multiple CVAs with residual left-sided weakness ambulating with a walker, dysphagia was brought in by her due to worsening weakness, lethargy, and diplopia. She was found to have an acute CVA in the central semiovale region. 01/18: PT has recommended SNF/rehab due to her significant functional impairment. Discussed with patient and on bedside who was hesitant to have her placed. After he knew he learn that they have options on which facility to go, he is amenable for plan for placement. Patient does prefer to be placed as well. Will consult network planner to initiate placement process. 01/19: No acute event overnight. Discussed with patient and today. is hesitant about SNF placement. He says they will have a discussion with the rest of the family tonight if they will proceed with SNF/rehab placement or take her home. Explained that if family decides to take her home, we can set up home health and home PT if they are not agreeable to placement. Reason For Visit: ACUTE CVA, DECONDITIONING Physical Exam Vital Signs: Temp Pulse Resp BP Pulse Ox 98.1 F 75 16 167/66 H 98 01/19/19 12:01 01/19/19 12:01 01/19/19 12:01 01/19/19 12:01 01/19/19 12:01 Intake & Output 01/18/19 01/19/19 01/20/19 06:59 06:59 06:59 Intake Total 943 674 Output Total 0 Balance 943 674 Weight 157 lb 6.561 oz 158 lb 4.67 oz General appearance: PRESENT: no acute distress, well-developed, well-nourished Head exam: PRESENT: atraumatic, normocephalic Eye exam: PRESENT: conjunctiva pink, EOMI, PERRLA. ABSENT: scleral icterus Ear exam: PRESENT: normal external ear exam Mouth exam: PRESENT: moist, tongue midline Neck exam: ABSENT: carotid bruit, JVD, lymphadenopathy, thyromegaly Respiratory exam: PRESENT: clear to auscultation gwendolyn. ABSENT: rales, rhonchi, wheezes Cardiovascular exam: PRESENT: RRR. ABSENT: diastolic murmur, rubs, systolic murmur Pulses: PRESENT: normal dorsalis pedis pul GI/Abdominal exam: PRESENT: normal bowel sounds, soft. 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 Head CT 01/16/19 10:30 IMPRESSION: CHRONIC CHANGES OF ATROPHY AND MICROVASCULAR ISCHEMIA. NO ACUTE PROCESS. EVIDENCE OF ACUTE STROKE: NO. Head MRI 01/16/19 12:13 IMPRESSION: 1. Small acute infarcts in the right and left centrum semiovale. These measure only 3 to 4 mm in greatest diameter. 2. Generalized atrophy and small-vessel ischemic change. EVIDENCE OF ACUTE STROKE: YES. Modified Barium Swallow 01/19/19 00:01 IMPRESSION: NO EVIDENCE OF PENETRATION OR ASPIRATION. PLEASE SEE SPEECH PATHOLOGIST REPORT FOR OTHER FINDINGS AND RECOMMENDATIONS. Assessment and Plan - Diagnosis (1) Acute CVA (cerebrovascular accident) Is this a current diagnosis for this admission?: Yes Plan: Patient has prior CVAs with left sided residual weaknes. She has new diplopia (right eye externally deviated) form her new CVA. Not a TPA candidate. MRI showed acute infarcts on the centrum semiovale region. Continue aspirin, clopidogrel and statin. She will also be given an appt with Dr. Curiel for further recommendations of her carotid stenoses. 01/18: Will initiate process for SNF/rehab placement. 01/19: Rediscussed with patient and today. is hesitant about SNF placement. He says they will have a discussion with the rest of the family tonight if they will proceed with SNF/rehab placement or take her home. Explai rafi that if family decides to take her home, we can set up home health and home PT if they are not agreeable to placement. (2) HTN (hypertension) Qualifiers: Hypertension type: essential hypertension Qualified Code(s): I10 - Esse ntial (primary) hypertension Is this a current diagnosis for this admission?: No Plan: Continue ramipiril. - Time Time Spent with patient: 25-34 minutes
[2019-01-19] MEDS: ATORVASTATIN CALCIUM 80 MG TABLET PO SCH (21:30)
[2019-01-20] MEDS: HYDRALAZINE HCL INJ/PF 20 MG/1 ML SDV IV PRN ×2 (03:14→18:33)
[2019-01-20] MEDS: HEPARIN SOD (PORCINE) 5,000 UNIT/ML 1 ML SYRINGE SUBCUT SCH ×2 (05:16→14:40)
[2019-01-20] MEDS: INSULIN LISPRO 100 UNIT/ML 3 ML VIAL SUBCUT SCH ×4 (09:40→21:05)
[2019-01-20] MEDS: FAMOTIDINE INJ/PF 20 MG/2 ML SDV IV SCH (09:53)
[2019-01-20] MEDS: HYDROCHLOROTHIAZIDE 25 MG TABLET PO SCH (09:53)
[2019-01-20] MEDS: DOCUSATE SODIUM 100 MG CAPSULE PO SCH (09:53)
[2019-01-20] MEDS: NYSTATIN TOPICAL POWDER 15 GM TP SCH ×2 (09:53→17:49)
[2019-01-20] MEDS: RAMIPRIL 10 MG CAPSULE PO SCH ×2 (09:53→21:04)
[2019-01-20] MEDS ORDERED: ASPIRIN 81 MG TABLET, CHEWABLE PO SCH (10:00)
[2019-01-20] MEDS ORDERED: CLOPIDOGREL BISULFATE 75 MG TABLET PO SCH (10:00)
[2019-01-20] MEDS ORDERED: MAGNESIUM HYDROXIDE SUSP 30 ML UDCUP PO PRN (12:24)
[2019-01-20] MEDS ORDERED: MEGESTROL ACETATE SUSP 400 MG/10 ML UDCUP PO SCH (15:00)
[2019-01-20 19:32] VITALS: BP 142/54
[2019-01-20] MEDS: ATORVASTATIN CALCIUM 80 MG TABLET PO SCH (21:04)
--- NOTE | 2019-01-26 11:45 | PDOC DISCHARGE SUMMARY ---
General - Admit/Disc Date/PCP Admission Date/Primary Care Provider: 01/16/19 17:18 HARIKA BENITEZ MD Discharge Date: 01/20/19 - Additional Information Resuscitation Status: Full Code Discharge Diet: As Tolerated Discharge Activity: Activity As Tolerated Prescriptions: Aspirin [Aspirin 81 mg Chewable Tablet] 81 mg PO DAILY #30 tab.chew Atorvastatin Calcium [Lipitor 80 mg Tablet] 80 mg PO QHS #30 tablet Clopidogrel Bisulfate [Plavix 75 mg Tablet] 75 mg PO DAILY #30 tablet Home Medications: Aspirin [Ecotrin 325 mg EC Tablet] 325 mg PO DAILY 01/16/19 Atorvastatin Calcium [Lipitor 20 mg Tablet] 20 mg PO QPM 01/16/19 Hydrochlorothiazide [Hydrodiuril 25 mg Tablet] 25 mg PO DAILY 01/16/19 Metformin HCl [Glucophage 500 mg Tablet] 500 mg PO [id number] PRN 01/16/19 Ramipril [Altace 10 mg Capsule] 10 mg PO BID 01/16/19 Aspirin [Aspirin 81 mg Chewable Tablet] 81 mg PO DAILY #30 tab.chew 01/20/19 Atorvastatin Calcium [Lipitor 80 mg Tablet] 80 mg PO QHS #30 tablet 01/20/19 Clopidogrel Bisulfate [Plavix 75 mg Tablet] 75 mg PO DAILY #30 tablet 01/20/19 Ramipril [Altace 10 mg Capsule] 10 mg PO Q12 capsule 01/20/19 History of Present Illness History of Present Illness: ELÍAS ANDRADE is a 73 year old female past medical history of hypertension, dyslipidemia, multiple CVAs with residual left-sided weakness ambulating with a walker, dysphagia was brought in by her planing of worsening weakness, lethargy, diplopia. Patient was at her baseline about 3 weeks ago ambulating with the help of a walker. Has been progressively getting weak, has been noticed that patient was complaining of diplopia and he noticed that her right eye was deviating to the right side. She is denying any headache, nausea, vomiting, diarrhea, constipation, chest pain, shortness of breath, urinary symptoms. Hospital Course Hospital Course: This is a 73 year old female with a past medical history of hypertension, dyslipidemia, multiple CVAs with residual left-sided weakness ambulating with a walker, dysphagia was brought in by her due to worsening weakness, lethargy, and diplopia. She was found to have small acute infarcts in R & L cetrum semiovale region. Carotid duplex was negative for stenosis. She has new diplopia (right eye externally deviated) from her new CVA. Not a TPA candidate. Continued on aspirin, clopidogrel and statin. PT/OT recommended SNF/Rehab but the family wanted to bring the patient home. The is the care provider for the patient and states he feels that he is perfectly capable to take care of his . The states he has neighbors and family close by who can check in on them to assist as needed. The patient was discharged home in the care of her with home health. For further recommendations regarding the patient's hospitalization, please refer to EMR. Physical Exam Vital Signs: Temp Pulse Resp BP Pulse Ox 98.3 F 82 18 142/54 H 100 01/20/19 19:11 01/20/19 19:11 01/20/19 19:11 01/20/19 19:11 01/20/19 19:11 General appearance: PRESENT: well-developed, well-nourished Head exam: PRESENT: atraumatic Eye exam: PRESENT: conjunctiva pink, other - DIPLOPIA Mouth exam: PRESENT: moist, tongue midline Teeth exam: PRESENT: poor dentation Respiratory exam: PRESENT: clear to auscultation gwendolyn, symmetrical, unlabored Cardiovascular exam: PRESENT: RRR Pulses: PRESENT: normal radial pulses, normal dorsalis pedis pul Vascular exam: PRESENT: normal capillary refill GI/Abdominal exam: PRESENT: soft. ABSENT: distended, tenderness Rectal exam: PRESENT: deferred Extremities exam: PRESENT: other - L SIDED WEAKNESS. ABSENT: full ROM Musculoskeletal exam: ABSENT: ambulatory, full ROM Neurological exam: PRESENT: awake, other - (+) DYSARTHRIA. ABSENT: alert, oriented to person, oriented to place, oriented to time, oriented to situation Psychiatric exam: PRESENT: flat affect Skin exam: PRESENT: dry, intact, normal color Results Laboratory Results: 01/17/19 04:34 01/17/19 04:34 01/16/19 01/16/19 10:25 10:25 Creatine Kinase 34 CK-MB (CK-2) < 0.22 Troponin I < 0.012 Impressions: Chest X-Ray 01/16/19 10:30 IMPRESSION: NO ACUTE RADIOGRAPHIC FINDING IN THE CHEST. Head CT 03/29/19 10:30 IMPRESSION: CHRONIC CHANGES OF ATROPHY AND MICROVASCULAR ISCHEMIA. NO ACUTE PROCESS. EVIDENCE OF ACUTE STROKE: NO. Head MRI 01/16/19 12:13 IMPRESSION: 1. Small acute infarcts in the right and left centrum semiovale. These measure only 3 to 4 mm in greatest diameter. 2. Generalized atrophy and small-vessel ischemic change. EVIDENCE OF ACUTE STROKE: YES. Modified Barium Swallow 01/19/19 00:01 IMPRESSION: NO EVIDENCE OF PENETRATION OR ASPIRATION. PLEASE SEE SPEECH PATHOLOGIST REPORT FOR OTHER FINDINGS AND RECOMMENDATIONS. Status: Imported from PACS Qualifiers - * PATIENT BEING DISCHARGED WITH ANY OF THE FOLLOWING DIAGNOSIS: Stroke Stroke Pt being discharged on Anti-thrombolytic therapy?: Yes Stroke Pt being discharged on Anti-coagulation therapy?: No Reason(s) for not prescribing Anti-coagulation therapy:: Not indicated - HIGH RISK OF FALLS. NO AFIB. NOT A CANDIDATE FOR ANTICOAGULATION Stroke Pt being discharged on Statins?: Yes Plan Time Spent: Greater than 30 Minutes
== END 2019-01-20 21:40 | disposition home or self-care (01) | DRG 66 ==
LOC: ER 10:00 → EH 17:18 → 3W 22:13
PROVIDERS: ADMIT Internal Medicine; ATTEND Internal Medicine
DX: I63.89 Other cerebral infarction (principal); I10 Essential (primary) hypertension; I69.321 Dysphasia following cerebral infarction; I69.398 Other sequelae of cerebral infarction; H53.2 Diplopia; E11.9 Type 2 diabetes mellitus without complications; R26.89 Other abnormalities of gait and mobility; E78.00 Pure hypercholesterolemia, unspecified; K21.9 Gastro-esophageal reflux disease without esophagitis; E78.5 Hyperlipidemia, unspecified; Z90.710 Acquired absence of both cervix and uterus; Z79.82 Long term (current) use of aspirin; Z79.84 Long term (current) use of oral hypoglycemic drugs
CPT/HCPCS: 36415; 70450; 70551; 71045; 74230; 80053; 80061; 80307; 81001; 82140; 82550; 82553; 82962; 83735; 84443; 84484; 85025; 93005; 93010; 93306; 93880; 94640; 99285; J0360; J1644; J1815; J3490; J7620; S0028

== ENCOUNTER 2019-02-21 11:14 | Inpatient (IN) | payer MEDICARE ==
--- NOTE | 2019-02-21 11:44 | RADIOLOGY REPORT (SQ) ---
EXAM DESCRIPTION: CT HEAD WITHOUT COMPLETED DATE/TIME: 02/21/2019 11:22 am REASON FOR STUDY: Acute CVA COMPARISON: 01/16/2019 TECHNIQUE: Axial images acquired through the brain without intravenous contrast. Images reviewed wi th bone, brain and subdural windows. Additional sagittal and coronal reconstructions were generated. Images stored on PACS. All CT scanners at this facility use dose modulation, iterative reconstruction, and/or weight based d osing when appropriate to reduce radiation dose to as low as reasonably achievable (ALARA). [facility]: Dose Right [facility]: CareDose [facility]: Dose Right [facility]: Teradose 4D [facility]: [facility] RADIATION DOSE: mGy. LIMITATIONS: None. FINDINGS: VENTRICLES: Prominent. CEREBRUM: No masses. No hemorrhage. No midline shift. Areas of low density in the white matter mos t likely due to chronic micro-vascular ischemic change. No evidence for acute infarction. CEREBELLUM: No masses. No hemorrhage. No alteration of density. No evidence for acute infarction. EXTRAAXIAL SPACES: Age-related involutional change. No fluid collections. No masses. ORBITS AND GLOBE: No intra- or extraconal masses. Normal contour of globe without masses. CALVARIUM: No fracture. PARANASAL SINUSES: Marked chronic sphenoid sinus disease. SOFT TISSUES: No mass or hematoma. OTHER: No other significant finding. IMPRESSION: CHRONIC CHANGES OF ATROPHY AND MICROVASCULAR ISCHEMIA. NO ACUTE PROCESS. EVIDENCE OF ACUTE STROKE: NO. COMMENT: Pertinent positive or negative findings of the imaging study reported as a CRITICAL EXAM jessica VALADEZ MD at11:37 on 02/21/2019. Category of Critical Exam: Code stroke TECHNICAL DOCUMENTATION: JOB ID: [id number] Quality ID # [id number]: Final reports with documentation of one or more dose reduction techniques (e.g., Au tomated exposure control, adjustment of the mA and/or kV according to patient size, use of iterative reconstruction technique) 2010 [employer]- All Rights Reserved Reading location - IP/workstation name: [email or web address]
--- NOTE | 2019-02-21 11:45 | RADIOLOGY REPORT (SQ) ---
EXAM DESCRIPTION: CHEST SINGLE VIEW COMPLETED DATE/TIME: 02/21/2019 11:26 am REASON FOR STUDY: Acute CVA COMPARISON: 01/16/2019 EXAM PARAMETERS: NUMBER OF VIEWS: One view. TECHNIQUE: Single frontal radiographic view of the chest acquired. RADIATION DOSE: NA LIMITATIONS: None. FINDINGS: LUNGS AND PLEURA: No opacities, masses or pneumothorax. No pleural effusion. MEDIASTINUM AND HILAR STRUCTURES: No masses. Contour normal. HEART AND VASCULAR STRUCTURES: Heart normal in size. Normal vasculature. BONES: No acute findings. HARDWARE: None in the chest. OTHER: No other significant finding. IMPRESSION: NO ACUTE RADIOGRAPHIC FINDING IN THE CHEST. TECHNICAL DOCUMENTATION: JOB ID: [id number] [employer]- All Rights Reserved Reading location - IP/workstation name: [email or web address]
[2019-02-21 12:35] LABS: ABSOLUTE EOSINOPHILS # (AUTO) 0.2 10^3/uL (0.0-0.6); ABSOLUTE LYMPHOCYTES (AUTO) 1.4 10^3/uL (0.5-4.7); ABSOLUTE MONOCYTES (AUTO) 0.2 10^3/uL (0.1-1.4); ABSOLUTE NEUT (AUTO) 2.9 10^3/uL (1.7-8.2); BASOPHILS % (AUTO) 0.6 % (0-2); EOSINOPHILS % (AUTO) 3.2 % (0-6); HEMATOCRIT 33.1 % (36.0-47.0); HEMOGLOBIN 11.1 g/dL (12.0-15.5); LYMPHOCYTES % (AUTO) 29.8 % (13-45); MEAN CORPUSCULAR HEMOGLOBIN 29.7 pg (27.0-33.4); MEAN CORPUSCULAR HGB CONC 33.5 g/dL (32.0-36.0); MEAN CORPUSCULAR VOLUME 89 fl (80-97); MONOCYTES % (AUTO) 5.1 % (3-13); PLATELET COUNT 212 10^3/uL (150-450); RED BLOOD COUNT 3.73 10^6/uL (3.72-5.28); RED CELL DISTRIBUTION WIDTH 13.3 % (11.5-14.0); SEGMENTED NEUTROPHILS % (AUTO) 61.3 % (42-78); TOTAL CELLS COUNTED % (AUTO) 100 %; WHITE BLOOD COUNT 4.8 10^3/uL (4.0-10.5)
[2019-02-21 12:53] LABS: INTERNATIONAL RATION (INR) 0.98; PROTHROMBIN TIME 13.5 SEC (11.4-15.4)
[2019-02-21 12:54] LABS: APPEARANCE,URINE CLEAR; BILIRUBIN,URINE NEGATIVE (NEGATIVE); COLOR,URINE STRAW; GLUCOSE, URINE NEGATIVE (NEGATIVE); KETONES,URINE NEGATIVE (NEGATIVE); LEUKOCYTE ESTERASE,URINE NEGATIVE (NEGATIVE); NITRITE,URINE NEGATIVE (NEGATIVE); PROTEIN,URINE NEGATIVE (NEGATIVE); URINE SPECIFIC GRAVITY 1.015; UROBILINOGEN,URINE NEGATIVE mg/dL (<2.0)
[2019-02-21 13:01] LABS: ALANINE AMINOTRANSFERASE 37 U/L (9-52); ALBUMIN 3.6 g/dL (3.5-5.0); ALKALINE PHOSPHATASE 95 U/L (38-126); ANION GAP 9 (5-19); ASPARTATE AMINO TRANSFERASE 21 U/L (14-36); BILIRUBIN,DIRECT 0.2 mg/dL (0.0-0.4); BILIRUBIN,TOTAL 0.4 mg/dL (0.2-1.3); BLOOD UREA NITROGEN 28 mg/dL (7-20); CALCIUM 9.4 mg/dL (8.4-10.2); CARBON DIOXIDE 29 mmol/L (22-30); CHLORIDE 102 mmol/L (98-107); CREATINE KINASE 37 U/L (30-135); GLUCOSE 148 mg/dL (75-110); TOTAL PROTEIN 6.9 g/dL (6.3-8.2)
--- NOTE | 2019-02-21 13:36 | ER Document Report ---
Entered by GEORGE QIU SCRIBE 02/21/19 1135 Acting as scribe for:KARLIE VALADEZ MD ED General - General Stated Complaint: POSSIBLE STROKE Time Seen by Provider: 02/21/19 11:19 Primary Care Provider: HARIKA BENITEZ MD [Primary Care Provider] - Follow up as needed Mode of Arrival: Ambulatory Information source: Patient Notes: Patient is a 73 year old female with a history of multiple CVAs with bilateral deficits presents to the emergency department via EMS due to a possible stroke. states when he went to wake the patient approximately 1 hr ago, he noted increased RUE weakness. He states the last known well was approximately 2100 last night. Of significance, patient was admitted to this hospital on January 16 and diagnosed with an acute bilateral stroke. At that time she was complaining of increased weakness and diplopia and her right eye being exotropic. When the patient was evaluated after the CT scan, she and her spouse both noted that motor function in the right and left lower extremities was slightly improved from earlier and the speech was slightly improved from earlier. She still does have profound deficit. She did have bilateral infarcts about 5 weeks ago. She is presently on Plavix. The patient is not a TPA candidate. Last known well was over 13 hours ago. She did suffer bilateral strokes about 5 weeks ago. She is on Plavix. TRAVEL OUTSIDE OF THE [place] 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 source: Law Enforcement - Social History Smoking Status: Unknown if Ever Smoked Family History: Reviewed & Not Pertinent - Past Medical History Cardiac Medical History: Reports: Hx Hypertension Pulmonary Medical History: Reports: Hx Bronchitis Neurological Medical History: Reports: Hx Cerebrovascular Accident Endocrine Medical History: Reports: Hx Diabetes Mellitus Type 2 GI Medical History: Reports: Hx Gastroesophageal Reflux Disease Past Surgical History: Reports: Hx Hysterectomy - Immunizations Hx Diphtheria, Pertussis, Tetanus Vaccination: No Hx Pneumococcal Vaccination: 07/21/15 Review of Systems - Review of Systems Constitutional: No symptoms reported EENT: No symptoms reported Cardiovascular: No symptoms reported Respiratory: No symptoms reported Gastrointestinal: No symptoms reported Genitourinary: No symptoms reported Female Genitourinary: No symptoms reported Musculoskeletal: No symptoms reported Skin: No symptoms reported Hematologic/Lymphatic: No symptoms reported Neurological/Psychological: See HPI, Weakness -: Yes All other systems reviewed and negative Physical Exam - Vital signs Vitals: Pulse Resp BP Pulse Ox 65 19 191/69 H 99 02/21/19 11:15 02/21/19 11:15 02/21/19 11:15 02/21/19 11:15 - Notes Notes: GENERAL: Alert, able to follow simple commands. HEAD: Normocephalic, atraumatic. EYES: Right eye is exotropic. Pupils equal, round, and reactive to light. ENT: Oral mucosa moist, tongue midline. NECK: Full range of motion. Supple. Trachea midline. LUNGS: Clear to auscultation bilaterally, no wheezes, rales, or rhonchi. No respiratory distress. HEART: Regular rate and rhythm. No murmurs, gallops, or rubs. ABDOMEN: Soft, non-tender. Non-distended. Bowel sounds present in all 4 quadrants. No guarding, rigidity, or rebound. EXTREMITIES: Moves all 4 extremities spontaneously. No edema, radial and dorsalis pedis pulses 2/4 bilaterally. No cyanosis. NEUROLOGICAL: Alert. Able to follow simple commands. Right sided facial droop. Drooling. Right eye is exotropic. BUE weakness. PSYCH: Normal affect, normal mood. SKIN: Warm, dry, normal turgor. No rashes or lesions noted. Course - Vital Signs Vital signs: Temp Pulse Resp BP Pulse Ox 98.1 F 68 15 156/80 H 98 02/21/19 11:58 02/21/19 14:31 02/21/19 14:31 02/21/19 14:31 02/21/19 14:31 - Laboratory Result Diagrams: 02/21/19 12:00 02/21/19 12:00 Laboratory results interpreted by me: 02/21/19 02/21/19 12:00 12:00 Hgb 11.1 L Hct 33.1 L BUN 28 H Glucose 148 H - Diagnostic Test Radiology reviewed: Reports reviewed - Noncontrast CT scan of the head does not show any acute infarct. - EKG Interpretation by [facility] EKG shows normal: Sinus rhythm, [place], Intervals, QRS Complexes, ST-T Waves Rate: Normal - 63 Rhythm: NSR Critical Care Note - Critical Care Note Total time excluding time spent on procedures (mins): 35 Discharge - Discharge Clinical Impression: Acute CVA (cerebrovascular accident) Condition: Stable Disposition: ADMITTED INPATIENT Admitting Provider: Julianna (Hospitalist) Unit Admitted: IMCU Referrals: HARIKA BENITEZ MD [Primary Care Provider] - Follow up as needed Scribe Attestation: 02/21/19 15:07 I personally performed the services described in the documentation, reviewed and edited the documentation which was dictated to the scribe in my presence, and it accurately records my words and actions. ED NIH Stroke Scale - NIH Stroke Scale *: 1. NIH scale should be completed with appropriate accompanying assessment tools. *: 2. The NIH should reflect what the patient is capable of doing and should not be coached by the clinician. 1a. Level of Consciousness: 0=Alert;keenly responsive -: 1=Drowsy -: 2=Obtunded -: 3=Coma/unresponsive or reflex to noxious stimuli. 1a. Responses: 0 1b. Orientation Questions: a. What month is it? -: b. How old are you? -: 0=Answers both questions correctly. -: 1=Answers one question correctly or patient is intubated or has orotracheal trauma. -: 2=Answers neither question correctly. 1b. Responses: 0 1c. Response to commands: a. Open and close eyes? -: b. 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 -: Credit is given despite weakness. Demonstration of task is permitted. Substit [place] command if hands cannot be used. -: 0=Performs both tasks correctly -: 1=Performs one task correctly -: 2=Performs neither task correctly 1c. Responses: 0 2. Gaze: Establish eye contact and instruct patient to "Follow my finger" -: 0=Normal -: 1=Partial gaze palsy. Gaze is abnormal in one or both eyes, but where forced deviation or total gaze paresis is not present. -: 2=Forced deviation or total gaze paresis. 2. Responses: 0 3. Visual [place]: Sees fingers in all four quadrants. -: 0=No visual loss. -: 1=Partial hemianopsia. -: 2=Complete hemianopsia. -: 3=Bilateral hemianopsia (including Cortical blindness) 3. Responses: 0 4. Facial Movement: Instruct patient to: -: a. Show me your teeth -: b. Raise your eyebrows -: c. Close your eyes -: d. Smile -: 0=Normal symmetrical movement -: 1=Minor paralysis (flattened nasolabial fold, asymmetry on smiling). -: 2=Partial paralysis (total or near total paralysis of lower face). -: 3=Complete paralysis of upper and lower face 4. Responses: 1 5. Motor functions (left arm): Alternate sides and extend each arm with palms down (90 degrees if sitting or 45 degrees for supine). -: 0=No drift;limb holds for full 10 seconds. -: 1=Drift; limb holds but drifts down before full 10 seconds, but does not hit bed. -: 2=Some effort against gravity; limb cannot get to or maintain position. -: 3=No effort against gravity; limb falls. -: 4=No movement. -: UN=Amputation, joint fusion, explain in comments. 5. Responses (left arm): 2 5. Motor Functions (right arm): Alternate sides and extend each arm with palms down (90 degrees if sitting or 45 degrees for supine). -: 0=No drift;limb holds for full 10 seconds. -: 1=Drift; limb holds but drifts down before full 10 seconds, but does not hit bed. -: 2=Some effort against gravity; limb cannot get to or maintain position. -: 3=No effort against gravity; limb falls. -: 4=No movement. -: UN=Amputation, joint fusion, explain in comments. 5. Responses (right arm): 3 6. Motor Functions (left leg): With patient lying supine, alternate sides and extend each leg (30 degrees always while supine). -: 0=No drift, leg holds position for full 5 seconds -: 1=Drift; leg falls before full 5 seconds but does not hit bed. -: 2=Some effort against gravity, leg falls to bed but some effort against gravity. -: 3=No effort against gravity, leg falls to bed immediately. -: 4=No movement. -: UN=Amputation, joint fusion; explain in comments. 6. Responses (left leg): 2 6. Motor Functions (right leg): With patient lying supine, alternate sides and extend each leg (30 degrees always while supine). -: 0=No drift, leg holds position for full 5 seconds -: 1=Drift; leg falls before full 5 seconds but does not hit bed. -: 2=Some effort against gravity, leg falls to bed but some effort against gravity. -: 3=No effort against gravity, leg falls to bed immediately. -: 4=No movement. -: UN=Amputation, joint fusion; explain in comments. 6. Responses (right leg): 3 7. Limb Ataxia: With eyes open instruct patient to: -: a. "Touch your finger to your nose". -: b. "Touch your heel to your garvey" -: 0=Absent -: 1=Present in one limb. -: 2=Present in two limbs. -: UN=Amputation or joint fusion; explain in comments. 7. Responses: 2 7. If ataxia present choose as appropriate: Right arm, Right leg 8. Sensory: Test sensation using pinprick or noxious stimuli. Test as many body parts as possible. -: 0=Normal;no sensory loss -: 1=Mile to moderate sensory loss (patient feels pin prick but is less sharp on affected side). -: 2=Severe or total sensory loss. 8. Responses: 0 9. Best Language: Instruct patient to: -: a. "Describe what you see in this picture." -: b. "Name the items in this picture." -: c. "Read these sentences." -: 0=No aphasia, normal -: 1=Mild to moderate aphasia. -: 2=Severe aphasia -: 3=Mute, global aphasia, no usable speech or auditory comprehension. 9. Responses: 0 10. Articulation, Dysarthia: Instruct patient to: -: "Read these words" or "Repeat these words" -: 0=Normal -: 1=Mild to moderate; patient may slur some words but can be understood without difficulty. -: 2=Severe; patients speech so slurred as to be unintelligible in the absence of dysphasia. -: UN=Intubated or other physical barrier, explain in comments. 10. Responses: 2 11. Extinction or inattention: 0=No abnormality -: 1= Visual, tactile, auditory, spatial, or personal inattention or extinction to bilateral simulation in one or the sensory modalities. -: 2=Profound susu-inattention or susu-inattention to more than one modality; does not recognize own hand. 11. Responses: 0 Total Score: 15 Notes: The patient has most of these deficits related to prior strokes. The new deficits are the increased weakness to the right upper and lower extremities, the dysphasia with barely understandable speech. The visual testing was done only on the left eye, as her brain has suppressed vision on the right side due to pre-existing severe exotropia. I personally performed the services described in the documentation, reviewed and edited the documentation which was dictated to the scribe in my presence, and it accurately records my words and actions.
[2019-02-21] MEDS ORDERED: ACETAMINOPHEN 325 MG TABLET PO PRN (15:07)
[2019-02-21] MEDS ORDERED: MAGNESIUM HYDROXIDE SUSP 30 ML UDCUP PO PRN (15:07)
[2019-02-21] MEDS ORDERED: ONDANSETRON HCL INJ/PF 4 MG/2 ML SDV IV PRN (15:07)
[2019-02-21] MEDS ORDERED: DEXTROSE 40% GEL 15 GM TUBE PO PRN ×2 (15:14)
[2019-02-21] MEDS ORDERED: GLUCAGON,HUMAN RECOMB 1 MG INJ IM PRN (15:14)
[2019-02-21] MEDS ORDERED: DEXTROSE 50%-WATER 25 GM/50 ML DISP.SYRIN IV PRN ×2 (15:14)
[2019-02-21] MEDS ORDERED: HYDRALAZINE HCL INJ/PF 20 MG/1 ML SDV IV PRN (15:48)
[2019-02-21] MEDS ORDERED: INSULIN LISPRO 100 UNIT/ML 3 ML VIAL SUBCUT SCH (16:00)
--- NOTE | 2019-02-21 16:11 | RADIOLOGY REPORT (SQ) ---
EXAM DESCRIPTION: CTA HEAD; CTA NECK COMPLETED DATE/TIME: 02/21/2019 3:50 pm REASON FOR STUDY: recurrent CVA COMPARISON: None. TECHNIQUE: Post IV contrast scanning, thin section axial imaging from the aortic arch through the br ain to evaluate the arterial structures. Source and MIP images are saved and reviewed on PACS. Advanced 3D imaging as volume-rendering, MIPs, SSD performed? yes All CT scanners at this facility use dose modulation, iterative reconstruction, and/or weight based d osing when appropriate to reduce radiation dose to as low as reasonably achievable (ALARA). [facility]: Dose Right [facility]: CareDose [facility]: Dose Right [facility]: Teradose 4D [facility]: [employer] CONTRAST TYPE AND DOSE: contrast/concentration: Isovue 350.00 mg/ml; Total Contrast Delivered: 70.0 ml; Total Saline Delivered: 75.0 ml RENAL FUNCTION: GFR > 60. LIMITATIONS: None. FINDINGS: [place]: The anterior, middle, posterior cerebral arteries are all patent. No ev idence of aneurysm or focal stenosis. Carotid and vertebral CIRCULATION: Mild atherosclerotic changes without significant stenosis. The v ertebral arteries are patent as is the basilar artery. No aneurysm. BRAIN: No gross enhancing lesions as visualized. The superior cerebral hemispheres are not included in the field of view. BONES: Intact as visualized. SINUSES: Left sphenoid sinus opacification. OTHER: No other significant finding. IMPRESSION: Mild atherosclerotic changes without significant stenosis. NO CTA EVIDENCE OF ANEURYSM O F THE [place]. Left sphenoid sinus opacification. TECHNICAL DOCUMENTATION: JOB ID: [id number] [place]-72 Quality ID # [id number]: Final reports with documentation of one or more dose reduction techniques (e.g., Au tomated exposure control, adjustment of the mA and/or kV according to patient size, use of iterative reconstruction technique) 2010 [employer]- All Rights Reserved Reading location - IP/workstation name: [email or web address]
--- NOTE | 2019-02-21 16:11 | RADIOLOGY REPORT (SQ) ---
EXAM DESCRIPTION: CTA HEAD; CTA NECK COMPLETED DATE/TIME: 02/21/2019 3:50 pm REASON FOR STUDY: recurrent CVA COMPARISON: None. TECHNIQUE: Post IV contrast scanning, thin section axial imaging from the aortic arch through the br ain to evaluate the arterial structures. Source and MIP images are saved and reviewed on PACS. Advanced 3D imaging as volume-rendering, MIPs, SSD performed? yes All CT scanners at this facility use dose modulation, iterative reconstruction, and/or weight based d osing when appropriate to reduce radiation dose to as low as reasonably achievable (ALARA). [facility]: Dose Right [facility]: CareDose [facility]: Dose Right [facility]: Teradose 4D [facility]: [employer] CONTRAST TYPE AND DOSE: contrast/concentration: Isovue 350.00 mg/ml; Total Contrast Delivered: 70.0 ml; Total Saline Delivered: 75.0 ml RENAL FUNCTION: GFR > 60. LIMITATIONS: None. FINDINGS: [place]: The anterior, middle, posterior cerebral arteries are all patent. No ev idence of aneurysm or focal stenosis. Carotid and vertebral CIRCULATION: Mild atherosclerotic changes without significant stenosis. The v ertebral arteries are patent as is the basilar artery. No aneurysm. BRAIN: No gross enhancing lesions as visualized. The superior cerebral hemispheres are not included in the field of view. BONES: Intact as visualized. SINUSES: Left sphenoid sinus opacification. OTHER: No other significant finding. IMPRESSION: Mild atherosclerotic changes without significant stenosis. NO CTA EVIDENCE OF ANEURYSM O F THE [place]. Left sphenoid sinus opacification. TECHNICAL DOCUMENTATION: JOB ID: [id number] [place]-72 Quality ID # [id number]: Final reports with documentation of one or more dose reduction techniques (e.g., Au tomated exposure control, adjustment of the mA and/or kV according to patient size, use of iterative reconstruction technique) 2010 [employer]- All Rights Reserved Reading location - IP/workstation name: [email or web address]
--- NOTE | 2019-02-21 16:15 | PDOC H&P ---
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 Last known well approximately 9 PM last night; outside the window for TPA therapy. Evaluation in the emergency department reveals stable vital signs (with hypertension 196/69), anemia (hemoglobin 11.1) unremarkable chemistry, normal urinalysis, EKG demonstrating NSR, and head CT that was negative for acute CVA but does demonstrate chronic microvascular ischemic changes with age-related involutional changes. The patient is noted to have significant expressive aphasia (able to understand 1-2 words per sentence) with wet sounding (pooling oral secretions) speech, decreased right internal controls manager strength, inability to lift right arm above bed, right facial droop with lateral deviation of right eye (present from prior CVA). Referred to the hospitalist service for admission and management of recurrent CVA. Past Medical History Cardiac Medical History: Reports: Hyperlipidema, Hypertension Denies: Congestive Heart Failure, Myocardial Infarction, Pulmonary Embolism Pulmonary Medical History: Reports: Bronchitis Denies: Asthma, Chronic Obstructive Pulmonary Disease (COPD), Pneumonia Neurological Medical History: Reports: Ischemic CVA Denies: Seizures Endocrine Medical History: Reports: Diabetes Mellitus Type 2 Denies: Diabetes Mellitus Type 1, Hyperthyroidism, Hypothyroidism Renal/ Medical History: Denies: Chronic Kidney Disease GI Medical History: Reports: Gastroesophageal Reflux Disease Denies: Cirrhosis, Hepatitis Musculoskeltal Medical History: Denies: Arthritis Psychiatric Medical History: Denies: Depression Hematology: Reports: Anemia Past Surgical History Past Surgical History: Reports: Hysterectomy Denies: Pacemaker Social History Information Source: Relative Lives with: Spouse/Significant other Smoking Status: Unknown if Ever Smoked Frequency of Alcohol Use: None Drugs: None Hx Prescription Drug Abuse: No - Advance Directive Resuscitation Status: Do Not Resuscitate Surrogate healthcare decision maker:: The patient's , Chiqui Andrade, Family History Family History: Reviewed & Not Pertinent Parental Family History Reviewed: Yes Children Family History Reviewed: Yes Sibling(s) Family History Reviewed.: Yes Medication/Allergy Home Medications: Aspirin [Ecotrin 325 mg EC Tablet] 325 mg PO DAILY 01/16/19 Atorvastatin Calcium [Lipitor 20 mg Tablet] 20 mg PO QPM 01/16/19 Hydrochlorothiazide [Hydrodiuril 25 mg Tablet] 25 mg PO DAILY 01/16/19 Metformin HCl [Glucophage 500 mg Tablet] 500 mg PO [id number] PRN 01/16/19 Ramipril [Altace 10 mg Capsule] 10 mg PO BID 01/16/19 Aspirin [Aspirin 81 mg Chewable Tablet] 81 mg PO DAILY #30 tab.chew 01/20/19 Atorvastatin Calcium [Lipitor 80 mg Tablet] 80 mg PO QHS #30 tablet 01/20/19 Clopidogrel Bisulfate [Plavix 75 mg Tablet] 75 mg PO DAILY #30 tablet 01/20/19 Ramipril [Altace 10 mg Capsule] 10 mg PO Q12 capsule 01/20/19 Allergies/Adverse Reactions: No Known Allergies Allergy (Verified 01/16/19 16:22) Review of Systems Constitutional: PRESENT: weakness. ABSENT: chills, fever(s), headache(s), weight gain, weight loss Eyes: PRESENT: other - Intermittent double vision; chronic Ears: ABSENT: hearing changes Cardiovascular: ABSENT: chest pain, dyspnea on exertion, edema, orthropnea, palpitations Respiratory: PRESENT: cough. ABSENT: hemoptysis Gastrointestinal: ABSENT: abdominal pain, constipation, diarrhea, hematemesis, hematochezia, nausea, vomiting Genitourinary: ABSENT: dysuria, hematuria Musculoskeletal: ABSENT: joint swelling Integumentary: ABSENT: rash, wounds Neurological: PRESENT: abnormal gait - Inability to bear weight, abnormal speech - Increased dysphasia/aphasia, focal weakness - Worsened right-sided weakness. ABSENT: confusion, dizziness, syncope Psychiatric: ABSENT: anxiety, depression, homidical ideation, suicidal ideation Endocrine: ABSENT: cold intolerance, heat intolerance, polydipsia, polyuria Hematologic/Lymphatic: ABSENT: easy bleeding, easy bruising Physical Exam Vital Signs: Temp Pulse Resp BP Pulse Ox 98.1 F 68 15 156/80 H 98 02/21/19 11:58 02/21/19 14:31 02/21/19 14:31 02/21/19 14:31 02/21/19 14:31 Intake & Output 02/20/19 02/21/19 02/22/19 06:59 06:59 06:59 Weight 68.22 kg General appearance: PRESENT: no acute distress, cooperative, well-developed, well-nourished - Overweight Head exam: PRESENT: atraumatic, normocephalic Eye exam: PRESENT: conjunctiva pink, PERRLA, other - EOMI to left eye; lateral deviation to right. ABSENT: scleral icterus Ear exam: PRESENT: normal external ear exam Mouth exam: PRESENT: moist, tongue midline, other - Pooling of oral secretions Teeth exam: PRESENT: poor dentation Neck exam: ABSENT: carotid bruit, JVD, lymphadenopathy, thyromegaly Respiratory exam: PRESENT: clear to auscultation gwendolyn, symmetrical, unlabored. ABSENT: rales, rhonchi, wheezes Cardiovascular exam: PRESENT: RRR, +S1, +S2. ABSENT: diastolic murmur, rubs, s ystolic murmur Pulses: PRESENT: normal dorsalis pedis pul Vascular exam: PRESENT: normal capillary refill GI/Abdominal exam: PRESENT: normal bowel sounds, soft. ABSENT: distended, guarding, mass, organolmegaly, rebound, tenderness Rectal exam: PRESENT: deferred Extremities exam: PRESENT: other - Moves all extremities spontaneously. ABSENT: calf tenderness, clubbing, pedal edema Neurological exam: PRESENT: alert, awake, oriented to person, CN II-XII grossly intact, aphasic, other - Orientation is difficult to assess secondary to profound expressive aphasia. Increased right-sided weakness from baseline, bilateral upper extremity internal controls manager strength is poor. Right-sided facial droop with lateral deviation of right eye (chronic). Drooling oral secretions.. ABSENT: motor sensory deficit Psychiatric exam: PRESENT: appropriate affect, normal mood. ABSENT: homicidal ideation, suicidal ideation Skin exam: PRESENT: dry, intact, warm. ABSENT: cyanosis, rash Results Laboratory Results: 02/21/19 12:00 02/21/19 12:00 02/21/19 02/21/19 02/21/19 12:00 12:00 12:24 WBC 4.8 RBC 3.73 Hgb 11.1 L Hct 33.1 L MCV 89 MCH 29.7 MCHC 33.5 RDW 13.3 Plt Count 212 Seg Neutrophils % 61.3 Lymphocytes % 29.8 Monocytes % 5.1 Eosinophils % 3.2 Basophils % 0.6 Absolute Neutrophils 2.9 Absolute Lymphocytes 1.4 Absolute Monocytes 0.2 Absolute Eosinophils 0.2 Absolute Basophils 0.0 Sodium 140.0 Potassium 4.0 Chloride 102 Carbon Dioxide 29 Anion Gap 9 BUN 28 H Creatinine 0.67 Est GFR ( Amer) > 60 Est GFR (Non-Af Amer) > 60 Glucose 148 H Calcium 9.4 Total Bilirubin 0.4 AST 21 ALT 37 Alkaline Phosphatase 95 Total Protein 6.9 Albumin 3.6 Urine Color STRAW Urine Appearance CLEAR Urine pH 7.0 Ur Specific [place] 1.015 Urine Protein NEGATIVE Urine Glucose (UA) NEGATIVE Urine Ketones NEGATIVE Urine Blood NEGATIVE Urine Nitrite NEGATIVE Ur Leukocyte Esterase NEGATIVE Urine WBC (Auto) 0 Urine RBC (Auto) 0 02/21/19 02/21/19 12:00 12:00 Creatine Kinase 37 Troponin I < 0.012 Impressions: Head CT 02/21/19 11:19 IMPRESSION: CHRONIC CHANGES OF ATROPHY AND MICROVASCULAR ISCHEMIA. NO ACUTE PROCESS. EVIDENCE OF ACUTE STROKE: NO. Chest X-Ray 02/21/19 11:20 IMPRESSION: NO ACUTE RADIOGRAPHIC FINDING IN THE CHEST. Assessment and Plan - Diagnosis (1) Acute CVA (cerebrovascular accident) Is this a current diagnosis for this admission?: Yes Plan: Patient presented with worsened right-sided weakness with worsened expressive aphasia and dysphasia. She is no longer able to bear weight or ambulate with assistance. She is noted to have difficulty maintaining oral secretions. Patient was recently admitted with bilateral CVA; discharge 01/20/2019. Head CT (02/21/49) demonstrated chronic microvascular ischemic changes with age- related involutional changes; no acute CVA. MRI (01/06) demonstrated small acute CVA to bilateral centrum semiovale with generalized atrophy and small vessel ischemic changes. Carotid Doppler was negative for hemodynamically significant stenosis. Echocardiogram did not identify embolic source for CVA. LVEF 60%, mild diastolic dysfunction, moderate pulmonary hypertension. Patient's reports that they were referred to a neurologist but have not yet had a follow-up appointment. Patient will be admitted to [facility] with standard TIA/CVA care set. She is failed her bedside swallow screen; keep n.p.o. Rectal aspirin daily. Resume high-dose statin and Plavix as soon as safe. Scopolamine patch for excessive oral secretions Permissive hypertension; IV hydralazine as needed for SBP>190, DBP>100 CTA of the head and neck pending. Repeat MRI pending. We will need to contact [facility] to discuss arrangements for FAISAL. Monitor closely on continuous telemetry; patient is currently in NSR without history of PAF. Patient may require chronic anticoagulation. PT/OT/ST consultations. Discharge planning is consulted. Fall and aspiration precautions. Heparin for DVT prophylaxis. IV Protonix for PUD prophylaxis. (2) Hyperlipidemia Is this a current diagnosis for this admission?: Yes Plan: Lipid panel (01/16/19) acceptable; LDL 94, HDL 83, triglycerides 84, total cholesterol 206 Currently n.p.o. due to failed swallow screen. Advance to consistent carb/cardiac diet when safe. Resume high-dose statin when safe. (3) HTN (hypertension) Qualifiers: Hypertension type: essential hypertension Qualified Code(s): I10 - Essential (primary) hypertension Is this a current diagnosis for this admission?: Yes Plan: Permissive hypertension secondary to acute CVA. IV hydralazine as needed for blood pressure control. (4) Diabetes mellitus type 2 in nonobese Is this a current diagnosis for this admission?: Yes Plan: Check A1C w/ AM labs. Currently n.p.o. status. We will provide maintenance IV fluids to prevent hypoglycemia. Accu-Cheks every 6 hours with Humalog for sliding scale coverage. Hyperglycemia protocol in place. - Time Time Spent with patient: 35 or more minutes Medications reviewed and adjusted accordingly: Yes Anticipated discharge: SNF
[2019-02-21] MEDS ORDERED: SCOPOLAMINE HYDROBROMIDE 1.5 MG PATCH.TD72 TD ONE (16:30)
[2019-02-21] MEDS ORDERED: ASPIRIN 300 MG SUPP, RECTAL PR ONE (16:30)
--- NOTE | 2019-02-21 16:52 | RADIOLOGY REPORT (SQ) ---
EXAM DESCRIPTION: MRI HEAD WITHOUT COMPLETED DATE/TIME: 02/21/2019 4:23 pm REASON FOR STUDY: expressive aphasia, Rt side weakness COMPARISON: None. TECHNIQUE: Multiplanar imaging includes non-contrasted T1, T2, FLAIR, and diffusion with ADC map seq uences. Images stored on PACS. LIMITATIONS: None. FINDINGS: ANATOMY: No anomalies. Normal vascular flow voids. Pituitary fossa normal. CSF SPACES: Atrophy induced prominence of ventricles and CSF spaces. CEREBRUM: High signal intensity lesions scattered throughout the white matter on FLAIR imaging with d istribution suggesting micro-vascular ischemic changes. No evidence of mass, or extraaxial fluid co llection. Few scattered areas of punctate susceptibility artifact, possible amyloid angiopathy. POSTERIOR FOSSA: No signal alteration. No hemorrhage. No edema, masses or mass effect. Internal florinda tory canals, cerebello-pontine angles, mastoids normal. DIFFUSION IMAGING: Positive for acute or sub-acute infarction in 2 small foci, one 5 mm focus in the left inferior thalamus and an additional 2 mm focus in the right anterior thalamus. ORBITS: No masses. Globes normal. PARANASAL SINUSES: Left sphenoid opacification. OTHER: No other significant finding. IMPRESSION: Positive for acute or sub-acute infarction in 2 small foci, one 5 mm focus in the left i nferior thalamus and an additional 2 mm focus in the right anterior thalamus.ATROPHY AND CHRONIC MICR O-VASCULAR ISCHEMIC CHANGES. Left sphenoid opacification. Few scattered areas of punctate susceptib ility artifact, possible amyloid angiopathy. . EVIDENCE OF ACUTE STROKE: YES. Bilateral thalamo-perforators. TECHNICAL DOCUMENTATION: JOB ID: [id number] [id number] 2010 [employer]- All Rights Reserved Reading location - IP/workstation name: [employer]
[2019-02-21] MEDS ORDERED: DEXTROSE 5%-NORMAL SALINE 1,000 ML IV PRN (17:22)
[2019-02-21] MEDS ORDERED: DOCUSATE SODIUM 100 MG CAPSULE PO SCH (18:00)
[2019-02-21] MEDS: INSULIN LISPRO 100 UNIT/ML 3 ML VIAL SUBCUT SCH ×2 (18:05→23:26)
[2019-02-21] MEDS: HEPARIN SOD (PORCINE) 5,000 UNIT/ML 1 ML SYRINGE SUBCUT SCH (21:43)
[2019-02-21] MEDS: ATORVASTATIN CALCIUM 80 MG TABLET PO SCH (21:45)
--- NOTE | 2019-02-21 22:55 | EKG REPORT ---
SEVERITY:- NORMAL ECG - SINUS RHYTHM : Confirmed by: George Suarez 21-Feb-2019 22:54:33
[2019-02-22] MEDS: INSULIN LISPRO 100 UNIT/ML 3 ML VIAL SUBCUT SCH ×3 (05:35→21:56)
[2019-02-22] MEDS: HEPARIN SOD (PORCINE) 5,000 UNIT/ML 1 ML SYRINGE SUBCUT SCH ×3 (05:38→21:19)
[2019-02-22 06:34] LABS: HEMATOCRIT 33.2 % (36.0-47.0); HEMOGLOBIN 11.1 g/dL (12.0-15.5); MEAN CORPUSCULAR HEMOGLOBIN 29.6 pg (27.0-33.4); MEAN CORPUSCULAR HGB CONC 33.3 g/dL (32.0-36.0); MEAN CORPUSCULAR VOLUME 89 fl (80-97); PLATELET COUNT 186 10^3/uL (150-450); RED BLOOD COUNT 3.74 10^6/uL (3.72-5.28); RED CELL DISTRIBUTION WIDTH 13.2 % (11.5-14.0); WHITE BLOOD COUNT 5.5 10^3/uL (4.0-10.5)
[2019-02-22 07:03] LABS: ANION GAP 10 (5-19); BLOOD UREA NITROGEN 18 mg/dL (7-20); CALCIUM 9.2 mg/dL (8.4-10.2); CARBON DIOXIDE 27 mmol/L (22-30); CHLORIDE 105 mmol/L (98-107); GLUCOSE 149 mg/dL (75-110); POTASSIUM 3.9 mmol/L (3.6-5.0); SODIUM 142.2 mmol/L (137-145)
[2019-02-22] MEDS: PANTOPRAZOLE SODIUM 40 MG VIAL IV SCH (09:45)
[2019-02-22] MEDS ORDERED: ASPIRIN 300 MG SUPP, RECTAL PR SCH (10:00)
[2019-02-22] MEDS ORDERED: CLOPIDOGREL BISULFATE 75 MG TABLET PO SCH (10:00)
[2019-02-22] MEDS ORDERED: ASPIRIN 81 MG TABLET, ENT COATED PO SCH (10:00)
--- NOTE | 2019-02-22 14:35 | PDOC PROGRESS REPORT ---
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 Patient was seen on morning rounds with her present. She was found resting in bed comfortably on room air. She continues to have significant expressive aphasia and I am unable to understand more than 1 word. Patient's does report that this is worse than her baseline, however, she does have expressive aphasia at baseline. She continues to have profound right-sided weakness and residual left-sided weakness from prior CVA. She did meet with speech therapy this morning who have proved her to advance her diet. We discussed plans to obtain a FAISAL and strong recommendation for event monitoring due to the recurrent and multifocal nature of her CVA events. We did discuss possible anticoagulation needs; patient's advises that she is [employer] and wishes to minimize bleeding risk as much as possible as she would not be agreeable to blood transfusion if necessary for corrective measures. ROS is limited secondary to aphasia; she appears to be comfortable and not in any distress at this time. No other questions or concerns per . No concerns per nursing. Reason For Visit: TIA/CVA Physical Exam Vital Signs: Temp Pulse Resp BP Pulse Ox 97.3 F 66 16 165/61 H 100 02/22/19 10:59 02/22/19 10:59 02/22/19 10:59 02/22/19 10:59 02/22/19 10:59 Intake & Output 02/21/19 02/22/19 02/23/19 06:59 06:59 06:59 Intake Total 0 Balance 0 Weight 67.2 kg General appearance: PRESENT: no acute distress, well-developed, well-nourished Head exam: PRESENT: atraumatic, normocephalic Eye exam: PRESENT: conjunctiva pink, PERRLA, other - Left EOMI, lateral deviation of right. ABSENT: scleral icterus Ear exam: PRESENT: normal external ear exam Mouth exam: PRESENT: moist, tongue midline Neck exam: ABSENT: carotid bruit, JVD, lymphadenopathy, thyromegaly Respiratory exam: PRESENT: clear to auscultation gwendolyn, symmetrical, unlabored. ABSENT: rales, rhonchi, wheezes Cardiovascular exam: PRESENT: RRR, +S1, +S2. ABSENT: diastolic murmur, rubs, systolic murmur Pulses: PRESENT: normal dorsalis pedis pul Vascular exam: PRESENT: normal capillary refill GI/Abdominal exam: PRESENT: normal bowel sounds, soft. ABSENT: distended, guar ding, mass, organolmegaly, rebound, tenderness Rectal exam: PRESENT: deferred Extremities exam: PRESENT: full ROM, other - Moves all extremities spont aneously. ABSENT: calf tenderness, clubbing, pedal edema Musculoskeletal exam: ABSENT: ambulatory Neurological exam: PRESENT: alert, awake, oriented to person, oriented to place, CN II-XII grossly intact, aphasic, other - Increased right-sided weakness from baseline, bilateral upper extremity equine intern strength is poor. Right-sided facial droop with lateral deviation of right eye (chronic). Drooling oral secretions. Left-sided weakness is chronic per ; related to prior CVA. ABSENT: motor sensory deficit Psychiatric exam: PRESENT: appropriate affect, normal mood. ABSENT: homicidal ideation, suicidal ideation Skin exam: PRESENT: dry, intact, warm. ABSENT: cyanosis, rash Results Laboratory Results: 02/22/19 05:39 02/22/19 05:39 02/22/19 02/22/19 05:39 05:39 WBC 5.5 RBC 3.74 Hgb 11.1 L Hct 33.2 L MCV 89 MCH 29.6 MCHC 33.3 RDW 13.2 Plt Count 186 Sodium 142.2 Potassium 3.9 Chloride 105 Carbon Dioxide 27 Anion Gap 10 BUN 18 Creatinine 0.58 Est GFR ( Amer) > 60 Est GFR (Non-Af Amer) > 60 Glucose 149 H Calcium 9.2 02/21/19 02/21/19 12:00 12:00 Creatine Kinase 37 Troponin I < 0.012 Impressions: Head CTA 02/21/19 00:00 IMPRESSION: Mild atherosclerotic changes without significant stenosis. NO CTA EVIDENCE OF ANEURYSM OF [place]. Left sphenoid sinus opacification. Head MRI 02/21/19 00:00 IMPRESSION: Positive for acute or sub-acute infarction in 2 small foci, one 5 mm focus in the left inferior thalamus and an additional 2 mm focus in the right anterior thalamus.ATROPHY AND CHRONIC MICRO-VASCULAR ISCHEMIC CHANGES. Left sphenoid opacification. Few scattered areas of punctate susceptibility artifact, possible amyloid angiopathy. . EVIDENCE OF ACUTE STROKE: YES. Bilateral thalamo-perforators. Neck CTA 02/21/19 00:00 IMPRESSION: Mild atherosclerotic changes without significant stenosis. NO CTA EVIDENCE OF ANEURYSM OF [place]. Left sphenoid sinus opacification. Head CT 02/21/19 11:19 IMPRESSION: CHRONIC CHANGES OF ATROPHY AND MICROVASCULAR ISCHEMIA. NO ACUTE PROCESS. EVIDENCE OF ACUTE STROKE: NO. Chest X-Ray 02/21/19 11:20 IMPRESSION: NO ACUTE RADIOGRAPHIC FINDING IN THE CHEST. Assessment and Plan - Diagnosis (1) Acute CVA (cerebrovascular accident) Is this a current diagnosis for this admission?: Yes Plan: Patient presented with worsened right-sided weakness with worsened expressive aphasia and dysphasia. She is no longer able to bear weight or ambulate with assistance. She is noted to have difficulty maintaining oral secretions. Patient was recently admitted with bilateral CVA; discharge 01/20/2019. Head CT (02/21/49) demonstrated chronic microvascular ischemic changes with age- related involutional changes; no acute CVA. MRI (02/21/19) is positive for acute to subacute infarction to the left inferior thalamus and to the right anterior thalamus with atrophy and chronic microvascular ischemic changes, left sphenoid opacification, and a few scattered areas of punctate susceptibility artifact, possible amyloid angiopathy. CTA of the Head/Nneck demonstrated mild arthrosclerotic changes without significant stenosis MRI (01/06) demonstrated small acute CVA to bilateral centrum semiovale with generalized atrophy and small vessel ischemic changes. Carotid Doppler was negative for hemodynamically significant stenosis. Echocardiogram did not identify embolic source for CVA. LVEF 60%, mild diastolic dysfunction, moderate pulmonary hypertension. Patient's reports that they were referred to a neurologist but have not yet had a follow-up appointment. Patient has been admitted to [facility] with standard TIA/CVA care set. Speech therapy cleared her for a mechanical chopped and nectar thick diet today. Strict aspiration precautions, supervised and assisted feedings. Continue daily aspirin, Plavix, and high-dose statin therapy. Scopolamine patch for excessive oral secretions Permissive hypertension; IV hydralazine as needed for SBP>190, DBP>100 Have contacted [facility] to discuss arrangements for FAISAL; schedule is full for [place], will need to call back tomorrow regarding Saturday. Monitor closely on continuous telemetry; patient is currently in NSR without history of PAF. Patient may require chronic anticoagulation. Discussed w/ Dr. Nevarez today; will see patient tomorrow to assist with further evaluation and HTN managment. Will need to discuss possible amyloid angiopathy w/ Neurology as chronic antiplatelet and chronic anticoagulation is a relative contraindication. PT/OT/ST consultations. Discharge planning is consulted. Fall and aspiration precautions. Heparin for DVT prophylaxis. IV Protonix for PUD prophylaxis. (2) Hyperlipidemia Is this a current diagnosis for this admission?: Yes Plan: Lipid panel (01/16/19) acceptable; LDL 94, HDL 83, triglycerides 84, total cholesterol 206 High-dose statin. Consistent carb/cardiac diet. (3) HTN (hypertension) Qualifiers: Hypertension type: essential hypertension Qualified Code(s): I10 - Essential (primary) hypertension Is this a current diagnosis for this admission?: Yes Plan: Permissive hypertension secondary to acute CVA. Plan to resume ramipril and hydrochlorothiazide tomorrow. IV hydralazine as needed for blood pressure control. (4) Diabetes mellitus type 2 in nonobese Is this a current diagnosis for this admission?: Yes Plan: A1c 8.6% Cardiac/consistent carb diet. Accu-Cheks with meals and at bedtime with Humalog for sliding scale coverage. 1/2 dose home Levemir; start 12 units nightly. Hyperglycemia protocol in place. - Time Time Spent with patient: 35 or more minutes Medications reviewed and adjusted accordingly: Yes Anticipated discharge: SNF Within: within 72 hours - Patient requires FAISAL to determine chronic anticoagulation needs.
[2019-02-22] MEDS: ATORVASTATIN CALCIUM 80 MG TABLET PO SCH (21:19)
[2019-02-22] MEDS ORDERED: INSULIN GLARGINE,HUM.REC.ANLOG 1,000 UNIT/10 ML VIAL SUBCUT SCH (22:00)
[2019-02-22] MEDS ORDERED: INSULIN DETEMIR 12 UNIT SQ SCH (22:00)
[2019-02-23] MEDS: HEPARIN SOD (PORCINE) 5,000 UNIT/ML 1 ML SYRINGE SUBCUT SCH ×2 (05:42→18:35)
[2019-02-23 06:36] LABS: ANION GAP 12 (5-19); BLOOD UREA NITROGEN 15 mg/dL (7-20); CALCIUM 9.3 mg/dL (8.4-10.2); CARBON DIOXIDE 27 mmol/L (22-30); CHLORIDE 103 mmol/L (98-107); GLUCOSE 101 mg/dL (75-110); POTASSIUM 3.9 mmol/L (3.6-5.0); SODIUM 141.5 mmol/L (137-145)
[2019-02-23] MEDS: INSULIN LISPRO 100 UNIT/ML 3 ML VIAL SUBCUT SCH ×4 (08:59→20:59)
[2019-02-23] MEDS ORDERED: CLOPIDOGREL BISULFATE 75 MG TABLET PO SCH (10:00)
[2019-02-23] MEDS ORDERED: ASPIRIN 81 MG TABLET, ENT COATED PO SCH (10:00)
[2019-02-23] MEDS: PANTOPRAZOLE SODIUM 40 MG VIAL IV SCH (10:34)
[2019-02-23] MEDS: HYDROCHLOROTHIAZIDE 25 MG TABLET PO SCH (10:34)
[2019-02-23] MEDS ORDERED: HYDRALAZINE HCL INJ/PF 20 MG/1 ML SDV IV PRN (14:03)
--- NOTE | 2019-02-23 14:17 | PDOC PROGRESS REPORT ---
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 Patient was seen on morning rounds with her present. She was found sitting upright in bed, comfortably, on room air. She continues to have significant expressive aphasia; I am able to understand a few short phrases today. She continues to have profound right-sided weakness and residual left- sided weakness from prior CVA. We discussed plans to obtain a FAISAL (on schedule at [facility] tomorrow) and strong recommendation for event monitoring due to the recurrent and multifocal nature of her CVA events. We did discuss possible anticoagulation needs; patient's advises that she is Jehovah Witness and wishes to minimize bleeding risk as much as possible as she would not be agreeable to blood transfusion if necessary for corrective measures. Dr. Nevarez has agreed to come speak with patient and regarding risks/benefits of each this afternoon (at 's request). ROS is limited secondary to aphasia; she appears to be comfortable and not in any distress at this time. No other questions or concerns per . No concerns per nursing. Reason For Visit: TIA/CVA Physical Exam Vital Signs: Temp Pulse Resp BP Pulse Ox 97.9 F 71 16 131/48 H 99 02/23/19 11:18 02/23/19 11:18 02/23/19 11:18 02/23/19 11:18 02/23/19 11:18 Intake & Output 02/22/19 02/23/19 02/24/19 06:59 06:59 06:59 Intake Total 0 1512 354 Balance 0 1512 354 Weight 67.2 kg 70.6 kg General appearance: PRESENT: no acute distress, well-developed, well-nourished Head exam: PRESENT: atraumatic, normocephalic Eye exam: PRESENT: conjunctiva pink, PERRLA, other - Left EOMI, lateral deviation of right. ABSENT: scleral icterus Ear exam: PRESENT: normal external ear exam Mouth exam: PRESENT: moist, tongue midline Neck exam: ABSENT: carotid bruit, JVD, lymphadenopathy, thyromegaly Respiratory exam: PRESENT: clear to auscultation gwendolyn, symmetrical, unlabored. ABSENT: rales, rhonchi, wheezes Cardiovascular exam: PRESENT: RRR, +S1, +S2. ABSENT: diastolic murmur, rubs, systolic murmur Pulses: PRESENT: normal dorsalis pedis pul Vascular exam: PRESENT: normal capillary refill GI/Abdominal exam: PRESENT: normal bowel sounds, soft. ABSENT: distended, guarding, mass, organolmegaly, rebound, tenderness Rectal exam: PRESENT: deferred Extremities exam: PRESENT: full ROM - moves all extremities spontaneously. ABSENT: calf tenderness, clubbing, pedal edema Neurological exam: PRESENT: alert, awake, oriented to person, oriented to place, CN II-XII grossly intact, aphasic, other - Increased right-sided weakness from baseline, bilateral upper extremity alarm security or surveillance monitor strength is poor. Right-sided facial droop with lateral deviation of right eye (chronic). Drooling oral secretions. Left-sided weakness is chronic per ; related to prior CVA. ABSENT: motor sensory deficit Psychiatric exam: PRESENT: appropriate affect, normal mood. ABSENT: homicidal ideation, suicidal ideation Skin exam: PRESENT: dry, intact, warm. ABSENT: cyanosis, rash Results Laboratory Results: 02/22/19 05:39 02/23/19 05:16 02/23/19 05:16 Sodium 141.5 Potassium 3.9 Chloride 103 Carbon Dioxide 27 Anion Gap 12 BUN 15 Creatinine 0.70 Est GFR ( Amer) > 60 Est GFR (Non-Af Amer) > 60 Glucose 101 Calcium 9.3 02/21/19 02/21/19 12:00 12:00 Creatine Kinase 37 Troponin I < 0.012 Impressions: Head CTA 02/21/19 00:00 IMPRESSION: Mild atherosclerotic changes without significant stenosis. NO CTA EVIDENCE OF ANEURYSM OF THE [place]. Left sphenoid sinus opacification. Head MRI 02/21/19 00:00 IMPRESSION: Positive for acute or sub-acute infarction in 2 small foci, one 5 mm focus in the left inferior thalamus and an additional 2 mm focus in the right anterior thalamus.ATROPHY AND CHRONIC MICRO-VASCULAR ISCHEMIC CHANGES. Left sphenoid opacification. Few scattered areas of punctate susceptibility artifact, possible amyloid angiopathy. . EVIDENCE OF ACUTE STROKE: YES. Bilateral thalamo-perforators. Neck CTA 02/21/19 00:00 IMPRESSION: Mild atherosclerotic changes without significant stenosis. NO CTA EVIDENCE OF ANEURYSM OF THE [place]. Left sphenoid sinus opacification. Head CT 02/21/19 11:19 IMPRESSION: CHRONIC CHANGES OF ATROPHY AND MICROVASCULAR ISCHEMIA. NO ACUTE PROCESS. EVIDENCE OF ACUTE STROKE: NO. Chest X-Ray 02/21/19 11:20 IMPRESSION: NO ACUTE RADIOGRAPHIC FINDING IN THE CHEST. Assessment and Plan - Diagnosis (1) Acute CVA (cerebrovascular accident) Is this a current diagnosis for this admission?: Yes Plan: Patient presented with worsened right-sided weakness with worsened expressive aphasia and dysphasia. She is no longer able to bear weight or ambulate with assistance. She is noted to have difficulty maintaining oral secretions. Patient was recently admitted with bilateral CVA; discharge 01/20/2019. Head CT (02/21/49) demonstrated chronic microvascular ischemic changes with age- related involutional changes; no acute CVA. MRI (02/21/19) is positive for acute to subacute infarction to the left inferior thalamus and to the right anterior thalamus with atrophy and chronic microvascular ischemic changes, left sphenoid opacification, and a few scattered areas of punctate susceptibility artifact, possible amyloid angiopathy. CTA of the Head/Neck demonstrated mild arthrosclerotic changes without significant stenosis MRI (01/06) demonstrated small acute CVA to bilateral centrum semiovale with generalized atrophy and small vessel ischemic changes. Carotid Doppler was negative for hemodynamically significant stenosis. Echocardiogram did not identify embolic source for CVA. LVEF 60%, mild diastolic dysfunction, moderate pulmonary hypertension. Patient's reports that they were referred to a neurologist but have not yet had a follow-up appointment. Patient has been admitted to [facility] with standard TIA/CVA care set. Speech therapy cleared her for a mechanical chopped and nectar thick diet today. Strict aspiration precautions, supervised and assisted feedings. Continue daily aspirin, Plavix, and high-dose statin therapy. Scopolamine patch for excessive oral secretions Permissive hypertension; IV hydralazine as needed for SBP>180, DBP>90 Have contacted [facility] to discuss arrangements for FAISAL; on schedule for Saturday Monitor closely on continuous telemetry; patient is currently in NSR without hi story of PAF. Will need 30-day event monitor. Patient may require chronic anticoagulation. Discussed w/ Dr. Nevarez; will see patient today to assist with further evaluation and HTN managment. PT/OT/ST consultations. Discharge planning is consulted; plan is to discharge to home w/ HH nursing, PT/OT/ST, and aide. Fall and aspiration precautions. Heparin for DVT prophylaxis. IV Protonix for PUD prophylaxis. (2) Hyperlipidemia Is this a current diagnosis for this admission?: Yes Plan: Lipid panel (01/16/19) acceptable; LDL 94, HDL 83, triglycerides 84, total cholesterol 206 High-dose statin. Consistent carb/cardiac diet. (3) HTN (hypertension) Qualifiers: Hypertension type: essential hypertension Qualified Code(s): I10 - Essential (primary) hypertension Is this a current diagnosis for this admission?: Yes Plan: Improved; 130/48 Resume ramipril and hydrochlorothiazide Cardiac diet IV hydralazine as needed for blood pressure control. (4) Diabetes mellitus type 2 in nonobese Is this a current diagnosis for this admission?: Yes Plan: A1c 8.6% Cardiac/consistent carb diet. Accu-Cheks with meals and at bedtime with Humalog for sliding scale coverage. Continue Levemir qHS. Hyperglycemia protocol in place. - Time Time Spent with patient: 25-34 minutes Medications reviewed and adjusted accordingly: Yes Anticipated discharge: Home with Homehealth Within: within 48 hours
[2019-02-23] MEDS: INSULIN GLARGINE,HUM.REC.ANLOG 1,000 UNIT/10 ML VIAL SUBCUT SCH (21:49)
[2019-02-23] MEDS: ATORVASTATIN CALCIUM 80 MG TABLET PO SCH (21:55)
[2019-02-23] MEDS: RAMIPRIL 10 MG CAPSULE PO SCH (21:55)
[2019-02-24] MEDS: INSULIN LISPRO 100 UNIT/ML 3 ML VIAL SUBCUT SCH ×4 (08:21→21:53)
[2019-02-24] MEDS: HYDROCHLOROTHIAZIDE 25 MG TABLET PO SCH (13:09)
[2019-02-24] MEDS: RAMIPRIL 10 MG CAPSULE PO SCH ×2 (13:09→21:52)
[2019-02-24] MEDS: PANTOPRAZOLE SODIUM 40 MG VIAL IV SCH (13:15)
[2019-02-24] MEDS: HEPARIN SOD (PORCINE) 5,000 UNIT/ML 1 ML SYRINGE SUBCUT SCH (13:25)
[2019-02-24 16:26] LABS: HEMATOCRIT 35.6 % (36.0-47.0); HEMOGLOBIN 11.9 g/dL (12.0-15.5); MEAN CORPUSCULAR HEMOGLOBIN 29.8 pg (27.0-33.4); MEAN CORPUSCULAR HGB CONC 33.3 g/dL (32.0-36.0); MEAN CORPUSCULAR VOLUME 90 fl (80-97); PLATELET COUNT 203 10^3/uL (150-450); RED BLOOD COUNT 3.98 10^6/uL (3.72-5.28); RED CELL DISTRIBUTION WIDTH 13.7 % (11.5-14.0); WHITE BLOOD COUNT 5.1 10^3/uL (4.0-10.5)
[2019-02-24 16:32] LABS: INTERNATIONAL RATION (INR) 0.97; PROTHROMBIN TIME 13.4 SEC (11.4-15.4)
--- NOTE | 2019-02-24 16:52 | PDOC PROGRESS REPORT ---
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 Patient was seen on afternoon rounds with her , son, and [id number] present after returning from [facility] where she underwent FAISAL (nml exam). She was found sitting upright in bed, comfortably, on room air. She continues to have significant expressive aphasia; though continues to improve. We did discuss anticoagulation needs (recommended by neurology); patient's advises that she is Jehovah Witness and wishes to minimize bleeding risk/reversal w/ blood product risk as much as possible and so asks for Coumadin option. No other questions or concerns at this time. No concerns per nursing. Reason For Visit: CVA Physical Exam Vital Signs: Temp Pulse Resp BP Pulse Ox 97.6 F 66 16 160/55 H 100 02/24/19 11:51 02/24/19 14:00 02/24/19 11:51 02/24/19 11:51 02/24/19 11:51 Intake & Output 02/23/19 02/24/19 02/25/19 06:59 06:59 06:59 Intake Total 1512 590 Balance 1512 590 Weight 70.6 kg 69.9 kg General appearance: PRESENT: no acute distress, well-developed, well-nourished Head exam: PRESENT: atraumatic, normocephalic Eye exam: PRESENT: conjunctiva pink, EOMI - Left EOMI, lateral deviation of right, PERRLA. ABSENT: scleral icterus Mouth exam: PRESENT: moist, tongue midline Neck exam: ABSENT: carotid bruit, JVD, lymphadenopathy, thyromegaly Respiratory exam: PRESENT: clear to auscultation gwendolyn, symmetrical, unlabored. ABSENT: rales, rhonchi, wheezes Cardiovascular exam: PRESENT: RRR, +S1, +S2. ABSENT: diastolic murmur, rubs, systolic murmur Pulses: PRESENT: normal dorsalis pedis pul Vascular exam: PRESENT: normal capillary refill GI/Abdominal exam: PRESENT: normal bowel sounds, soft. ABSENT: distended, guarding, mass, organolmegaly, rebound, tenderness Rectal exam: PRESENT: deferred Extremities exam: PRESENT: full ROM - moves all extremities spontaneously. ABSENT: calf tenderness, clubbing, pedal edema Neurological exam: PRESENT: alert, awake, oriented to person, oriented to place, CN II-XII grossly intact, aphasic, other - Increased right-sided weakness from baseline, bilateral upper extremity content management consultant strength is poor. Right-sided facial droop with lateral deviation of right eye (chronic). Drooling oral secretions (improved). Left-sided weakness is chronic per ; related to prior CVA.. ABSENT: motor sensory deficit Psychiatric exam: PRESENT: appropriate affect, normal mood. ABSENT: homicidal ideation, suicidal ideation Skin exam: PRESENT: dry, intact, warm. ABSENT: cyanosis, rash Results Laboratory Results: 02/24/19 16:00 02/23/19 05:16 02/24/19 16:00 WBC 5.1 RBC 3.98 Hgb 11.9 L Hct 35.6 L MCV 90 MCH 29.8 MCHC 33.3 RDW 13.7 Plt Count 203 02/21/19 02/21/19 12:00 12:00 Creatine Kinase 37 Troponin I < 0.012 Impressions: Head CTA 02/21/19 00:00 IMPRESSION: Mild atherosclerotic changes without significant stenosis. NO CTA EVIDENCE OF ANEURYSM OF THE [place]. Left sphenoid sinus opacification. Head MRI 02/21/19 00:00 IMPRESSION: Positive for acute or sub-acute infarction in 2 small foci, one 5 mm focus in the left inferior thalamus and an additional 2 mm focus in the right anterior thalamus.ATROPHY AND CHRONIC MICRO-VASCULAR ISCHEMIC CHANGES. Left sphenoid opacification. Few scattered areas of punctate susceptibility artifact, possible amyloid angiopathy. . EVIDENCE OF ACUTE STROKE: YES. Bilateral thalamo-perforators. Neck CTA 02/21/19 00:00 IMPRESSION: Mild atherosclerotic changes without significant stenosis. NO CTA EVIDENCE OF ANEURYSM OF THE [place]. Left sphenoid sinus opacification. Head CT 02/21/19 11:19 IMPRESSION: CHRONIC CHANGES OF ATROPHY AND MICROVASCULAR ISCHEMIA. NO ACUTE PROCESS. EVIDENCE OF ACUTE STROKE: NO. Chest X-Ray 02/21/19 11:20 IMPRESSION: NO ACUTE RADIOGRAPHIC FINDING IN THE CHEST. Assessment and Plan - Diagnosis (1) Acute CVA (cerebrovascular accident) Is this a current diagnosis for this admission?: Yes Plan: Patient presented with worsened right-sided weakness with worsened expressive aphasia and dysphasia. She is no longer able to bear weight or ambulate with assistance. She is noted to have difficulty maintaining oral secretions. Patient was recently admitted with bilateral CVA; discharge 01/20/2019. Head CT (02/21/49) demonstrated chronic microvascular ischemic changes with age- related involutional changes; no acute CVA. MRI (02/21/19) is positive for acute to subacute infarction to the left inferior thalamus and to the right anterior thalamus with atrophy and chronic microvascular ischemic changes, left sphenoid opacification, and a few scattered areas of punctate susceptibility artifact, possible amyloid angiopathy. CTA of the Head/Neck demonstrated mild arthrosclerotic changes without significant stenosis FAISAL was negative for thrombus. LVEF was normal, mild diastolic dysfunction, mild pulmonary hypertension. MRI (01/06) demonstrated small acute CVA to bilateral centrum semiovale with generalized atrophy and small vessel ischemic changes. Carotid Doppler was negative for hemodynamically significant stenosis. Echocardiogram did not identify embolic source for CVA. LVEF 60%, mild diastolic dysfunction, moderate pulmonary hypertension. Patient's reports that they were referred to a neurologist but have not yet had a follow-up appointment. Patient has been admitted to [facility] with standard TIA/CVA care set. Speech therapy cleared her for a mechanical chopped and nectar thick diet today. Strict aspiration precautions, supervised and assisted feedings. Scopolamine patch for excessive oral secretions Monitor closely on continuous telemetry; patient is currently in NSR without history of PAF. Will need 30-day event monitor. PT/OT/ST consultations. Discharge planning is consulted; plan is to discharge to home w/ HH nursing, PT/OT/ST, and aide. Spoke with [facility] neurology, Dr. Roberts, today. The patient's MRI images from this admission as well as her admission in December 2018 were pushed to [facility] for personal review by Dr. Roberts. Dr. Roberts reports that there is low suspicion for amyloid angiopathy by Homeworth's criteria. Her stroke pattern appears to be more cardioembolic in nature. He does recommend 30-day event monitoring and chronic anticoagulation. Spoke with the patient and family regarding risks and benefits of chronic anticoagulation; they elect Coumadin therapy. She is placed on full dose Lovenox for bridge therapy. Start Coumadin 2 mg nightly. We will discuss with discharge planning need for continued PT/INR checks with home health nursing agency for close monitoring while obtaining therapeutic dose. Fall and aspiration precautions. Heparin for DVT prophylaxis. IV Protonix for PUD prophylaxis. (2) Hyperlipidemia Is this a current diagnosis for this admission?: Yes Plan: Lipid panel (01/16/19) acceptable; LDL 94, HDL 83, triglycerides 84, total cholesterol 206 High-dose statin. Consistent carb/cardiac diet. (3) HTN (hypertension) Qualifiers: Hypertension type: essential hypertension Qualified Code(s): I10 - Essential (primary) hypertension Is this a current diagnosis for this admission?: Yes Plan: Continue ramipril and hydrochlorothiazide Low dose Norvasc Cardiac diet IV hydralazine as needed for blood pressure control. (4) Diabetes mellitus type 2 in nonobese Is this a current diagnosis for this admission?: Yes Plan: A1c 8.6% Cardiac/consistent carb diet. Accu-Cheks with meals and at bedtime with Humalog for sliding scale coverage. Continue Levemir qHS. Hyperglycemia protocol in place. - Time Time Spent with patient: 35 or more minutes Medications reviewed and adjusted accordingly: Yes Anticipated discharge: Home with Homehealth Within: within 48 hours
[2019-02-24] MEDS: ENOXAPARIN SODIUM INJ 80 MG/0.8 ML DISP.SYRIN SUBCUT SCH (17:00)
[2019-02-24] MEDS ORDERED: INSULIN GLARGINE,HUM.REC.ANLOG 1,000 UNIT/10 ML VIAL (PYX) SUBCUT ONE (21:48)
[2019-02-24] MEDS: ATORVASTATIN CALCIUM 80 MG TABLET PO SCH (21:52)
[2019-02-24] MEDS: AMLODIPINE BESYLATE 5 MG TABLET PO SCH (21:52)
[2019-02-24] MEDS: INSULIN GLARGINE,HUM.REC.ANLOG 1,000 UNIT/10 ML VIAL SUBCUT SCH (21:52)
[2019-02-24] MEDS ORDERED: WARFARIN SODIUM 2 MG TABLET PO SCH (22:00)
[2019-02-25] MEDS: ENOXAPARIN SODIUM INJ 80 MG/0.8 ML DISP.SYRIN SUBCUT SCH ×2 (05:17→18:35)
[2019-02-25 06:21] LABS: HEMATOCRIT 31.1 % (36.0-47.0); HEMOGLOBIN 10.7 g/dL (12.0-15.5); MEAN CORPUSCULAR HEMOGLOBIN 30.1 pg (27.0-33.4); MEAN CORPUSCULAR HGB CONC 34.4 g/dL (32.0-36.0); MEAN CORPUSCULAR VOLUME 87 fl (80-97); PLATELET COUNT 208 10^3/uL (150-450); RED BLOOD COUNT 3.56 10^6/uL (3.72-5.28); RED CELL DISTRIBUTION WIDTH 13.7 % (11.5-14.0); WHITE BLOOD COUNT 6.3 10^3/uL (4.0-10.5)
[2019-02-25 06:25] LABS: INTERNATIONAL RATION (INR) 1.04; PROTHROMBIN TIME 14.1 SEC (11.4-15.4)
[2019-02-25] MEDS: INSULIN LISPRO 100 UNIT/ML 3 ML VIAL SUBCUT SCH ×3 (08:47→18:35)
[2019-02-25] MEDS: RAMIPRIL 10 MG CAPSULE PO SCH ×2 (11:12→21:04)
[2019-02-25] MEDS: HYDROCHLOROTHIAZIDE 25 MG TABLET PO SCH (11:13)
[2019-02-25 20:49] VITALS: BP 138/56
[2019-02-25] MEDS: AMLODIPINE BESYLATE 5 MG TABLET PO SCH (21:04)
[2019-02-25] MEDS: ATORVASTATIN CALCIUM 80 MG TABLET PO SCH (21:04)
[2019-02-25] MEDS ORDERED: WARFARIN SODIUM 5 MG TABLET PO SCH (22:00)
[2019-02-25] MEDS ORDERED: WARFARIN SODIUM 2 MG TABLET PO SCH (22:00)
--- NOTE | 2019-02-27 22:15 | PDOC DISCHARGE SUMMARY ---
General - Admit/Disc Date/PCP Admission Date/Primary Care Provider: 02/23/19 10:03 HARIKA BENITEZ MD Discharge Date: 02/25/19 - Discharge Diagnosis (1) Acute CVA (cerebrovascular accident) Is this a current diagnosis for this admission?: Yes Summary: Patient presented with worsened right-sided weakness with worsened expressive aphasia and dysphasia. Patient was recently admitted with bilateral CVA; discharge 01/20/2019. Head CT (02/21/49) demonstrated chronic microvascular ischemic changes with age- related involutional changes; no acute CVA. MRI (02/21/19) is positive for acute to subacute infarction to the left inferior thalamus and to the right anterior thalamus with atrophy and chronic microvascular ischemic changes, left sphenoid opacification, and a few scattered areas of punctate susceptibility artifact, possible amyloid angiopathy. CTA of the Head/Neck demonstrated mild arthrosclerotic changes without significant stenosis FAISAL was negative for thrombus. LVEF was normal, mild diastolic dysfunction, mild pulmonary hypertension. MRI (01/06) demonstrated small acute CVA to bilateral centrum semiovale with generalized atrophy and small vessel ischemic changes. Carotid Doppler was negative for hemodynamically significant stenosis. Echocardiogram did not identify embolic source for CVA. LVEF 60%, mild diastolic dysfunction, moderate pulmonary hypertension. Patient was admitted to [facility] with standard TIA/CVA care set. Speech therapy cleared her for a mechanical chopped and nectar thick diet. Recommend continued strict aspiration precautions with supervised and assisted feedings. Continue Scopolamine patch for excessive oral secretions Discharge planning was consulted; plan is to discharge to home w/ HH nursing, PT/OT/ST, and aide. Spoke with Dr. Roberts at [facility] neurology. The patient's MRI images from this admission, as well as her admission in December 2018, were pushed to [facility] for personal review by Dr. Roberts. Dr. Roberts reports that there is low suspicion for amyloid angiopathy by [place]'s criteria. Her stroke pattern appears to be more cardioembolic in nature. He recommends 30-day event monitoring and chronic anticoagulation. Spoke with the patient and family regarding risks and benefits of chronic anticoagulation; they elect Coumadin therapy. She is placed on full dose Lovenox for bridge therapy. She is discharged to home with home health nursing, PT/OT/ST. Discharge planning had verified that the home health nurse will be able to draw daily PT/INR and communicate results to the patient's PCP for dose adjustments. Recommend that twice daily Lovenox be continued until patient has been in the therapeutic rage (INR 2-3) x48 hrs. Recommend follow up with primary care provider within 1 week. Recommend arranging for 30-day event monitor. Return to the emergency department as needed for concerning symptoms. (2) Hyperlipidemia Is this a current diagnosis for this admission?: Yes Summary: Lipid panel (01/16/19) acceptable; LDL 94, HDL 83, triglycerides 84, total cholesterol 206 Continue High-dose statin. Consistent carb/cardiac diet. (3) HTN (hypertension) Is this a current diagnosis for this admission?: Yes Summary: Blood pressures are acceptable; 133/56 Continue Norvasc, ramipril and hydrochlorothiazide [place] Cardiac diet (4) Diabetes mellitus type 2 in nonobese Is this a current diagnosis for this admission?: Yes Summary: A1c 8.6% Continue Cardiac/consistent carb diet. Resume outpatient medication regiment. - Additional Information Resuscitation Status: Do Not Resuscitate Discharge Diet: Cardiac, Diabetic Discharge Activity: Activity As Tolerated, Balance Activity w/Rest Prescriptions: Amlodipine Besylate [Norvasc 5 mg Tablet] 5 mg PO QHS #30 tablet Enoxaparin Sodium [Lovenox Inj 80 mg/0.8 ml Disp.syrin] 70 mg SUBCUT Q12A #14 disp.syrin Warfarin Sodium [Coumadin 5 mg Tablet] 5 mg PO QHS #30 tablet Home Medications: Hydrochlorothiazide [Hydrodiuril 25 mg Tablet] 25 mg PO DAILY 01/16/19 Metformin HCl [Glucophage 500 mg Tablet] 1,000 mg PO BIDACBSP PRN 01/16/19 Atorvastatin Calcium [Lipitor 80 mg Tablet] 80 mg PO QHS #30 tablet 01/20/19 Ramipril [Altace 10 mg Capsule] 10 mg PO Q12 capsule 01/20/19 Cholecalciferol (Vitamin D3) [Vitamin D3 3000 unit Tablet] 3,000 unit PO DAILY 02/21/19 Insulin Detemir [Levemir] 25 unit SQ DAILY 02/21/19 Ipratropium [place] [Atrovent 0.06% Nasal [place]] 2 spray NASL BID 02/21/19 Ubidecarenone/Vitamin E Mixed [Coq10 Sg 100 Softgel] 1 each PO DAILY 02/21/19 Amlodipine Besylate [Norvasc 5 mg Tablet] 5 mg PO QHS #30 tablet 02/25/19 Enoxaparin Sodium [Lovenox Inj 80 mg/0.8 ml Disp.syrin] 70 mg SUBCUT Q12A #14 disp.syrin 02/25/19 Warfarin Sodium [Coumadin 5 mg Tablet] 5 mg PO QHS #30 tablet 02/25/19 History of Present Illness History of Present Illness: ELÍAS ANDRADE is a 73 year old female with a past medical history of hypertension, dyslipidemia, multiple CVAs (most recently in December 2018) resulting in residual left-sided weakness and expressive aphasia, DM 2, GERD, and anemia who presented to the emergency department this morning with report of increased expressive aphasia, dysphasia, and now right-sided weakness resulting in inability to stand without assistance or ambulate. Last known well approximately 9 PM last night; outside the window for TPA therapy. Evaluation in the emergency department reveals stable vital signs (with hypertension 196/69), anemia (hemoglobin 11.1) unremarkable chemistry, normal urinalysis, EKG demonstrating NSR, and head CT that was negative for acute CVA but does demonstrate chronic microvascular ischemic changes with age-related involutional changes. 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 Referred to the hospitalist service for admission and management of recurrent CVA. Physical Exam Vital Signs: Temp Pulse Resp BP Pulse Ox 98.2 F 71 20 138/56 H 100 02/25/19 20:00 02/25/19 20:00 02/25/19 20:00 02/25/19 20:00 02/25/19 20:00 Intake & Output 02/26/19 02/27/19 02/28/19 06:59 06:59 06:59 Intake Total 354 Balance 354 General appearance: PRESENT: no acute distress, well-developed, well-nourished Head exam: PRESENT: atraumatic, normocephalic Eye exam: PRESENT: conjunctiva pink, PERRLA, other - Left EOMI, lateral deviation of right. ABSENT: scleral icterus Ear exam: PRESENT: normal external ear exam Mouth exam: PRESENT: moist, tongue midline Neck exam: ABSENT: carotid bruit, JVD, lymphadenopathy, thyromegaly Respiratory exam: PRESENT: clear to auscultation gwendolyn, symmetrical, unlabored. ABSENT: rales, rhonchi, wheezes Cardiovascular exam: PRESENT: RRR, +S1, +S2. ABSENT: diastolic murmur, rubs, systolic murmur Pulses: PRESENT: normal dorsalis pedis pul Vascular exam: PRESENT: normal capillary refill GI/Abdominal exam: PRESENT: normal bowel sounds, soft. ABSENT: distended, guarding, mass, organolmegaly, rebound, tenderness Rectal exam: PRESENT: deferred Extremities exam: PRESENT: full ROM - moves all extremities spontaneously. 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 Right- sided facial droop with lateral deviation of right eye (chronic). Drooling oral secretions (improved). Left-sided weakness is chronic per ; related to prior CVA. ABSENT: motor sensory deficit Skin exam: PRESENT: dry, intact, warm. ABSENT: cyanosis, rash Results Laboratory Results: 02/25/19 05:38 02/23/19 05:16 02/21/19 02/21/19 12:00 12:00 Creatine Kinase 37 Troponin I < 0.012 Impressions: Head CTA 02/21/19 00:00 IMPRESSION: Mild atherosclerotic changes without significant stenosis. NO CTA EVIDENCE OF ANEURYSM OF THE [place]. Left sphenoid sinus opacification. Head MRI 02/21/19 00:00 IMPRESSION: Positive for acute or sub-acute infarction in 2 small foci, one 5 mm focus in the left inferior thalamus and an additional 2 mm focus in the right anterior thalamus.ATROPHY AND CHRONIC MICRO-VASCULAR ISCHEMIC CHANGES. Left sphenoid opacification. Few scattered areas of punctate susceptibility artifact, possible amyloid angiopathy. . EVIDENCE OF ACUTE STROKE: YES. Bilateral thalamo-perforators. Neck CTA 02/21/19 00:00 IMPRESSION: Mild atherosclerotic changes without significant stenosis. NO CTA EVIDENCE OF ANEURYSM OF [place]. Left sphenoid sinus opacification. Head CT 02/21/19 11:19 IMPRESSION: CHRONIC CHANGES OF ATROPHY AND MICROVASCULAR ISCHEMIA. NO ACUTE PROCESS. EVIDENCE OF ACUTE STROKE: NO. Chest X-Ray 02/21/19 11:20 IMPRESSION: NO ACUTE RADIOGRAPHIC FINDING IN THE CHEST. Qualifiers - * PATIENT BEING DISCHARGED WITH ANY OF THE FOLLOWING DIAGNOSIS: Stroke Stroke Pt being discharged on Anti-thrombolytic therapy?: Yes Stroke Pt being discharged on Anti-coagulation therapy?: Yes Stroke Pt being discharged on Statins?: Yes Acute Heart Failure Is this a Heart Failure Patient?: No Plan Discharge Plan: Follow up with primary care provider within 1 week. Home health nursing to check daily PT/INR. Continue Lovenox and Coumadin until therapeutic x2 days (INR 2-3), then discontinue Lovenox. Follow up with Cardiology to arrange for 30-day event monitor. Return to the emergency department as needed for concerning symptoms Time Spent: Greater than 30 Minutes
== END 2019-02-25 21:05 | disposition home health service (06) | DRG 66 ==
LOC: ER 11:14 → INTOOBSV 15:25 → EH 15:25 → 3W 18:24 → OBSVTOIN 02-23 10:03
PROVIDERS: ADMIT Family Medicine; ATTEND Family Medicine
DX: I63.9 Cerebral infarction, unspecified (principal); R47.01 Aphasia; R29.810 Facial weakness; I27.20 Pulmonary hypertension, unspecified; D64.9 Anemia, unspecified; I10 Essential (primary) hypertension; E11.8 Type 2 diabetes mellitus with unspecified complications; K21.9 Gastro-esophageal reflux disease without esophagitis; R29.715 NIHSS score 15; Z53.1 Procedure and treatment not carried out because of patient's decision for reasons of belief and group pressure; Z86.73 Personal history of transient ischemic attack (TIA), and cerebral infarction without residual deficits; Z79.01 Long term (current) use of anticoagulants; Z79.84 Long term (current) use of oral hypoglycemic drugs; Z79.82 Long term (current) use of aspirin; Z79.899 Other long term (current) drug therapy
CPT/HCPCS: 36415; 70450; 70496; 70498; 70551; 71045; 80048; 80053; 81001; 82550; 82962; 83036; 84484; 85025; 85027; 85610; 93005; 93010; 99291; G0378; J1644; J1650; J1815; J3490; J7042; S0164

== ENCOUNTER 2020-03-07 19:52 | Inpatient (IN) | payer MEDICARE ==
--- NOTE | 2020-03-07 20:13 | ER Document Report ---
ED General - General Stated Complaint: UNRESPONSIVE,ALTERED MENTAL STATUS Time Seen by Provider: 03/07/20 20:00 Mode of Arrival: Medic Information source: Relative - patient's Cannot obtain history due to: Altered mental status TRAVEL OUTSIDE OF THE [place] IN LAST 30 DAYS: No - HPI Onset: Just prior to arrival Onset/Duration: Sudden Quality of pain: No pain Severity: Severe Associated symptoms: Nausea, Vomiting, Other - possible aspiration of vomit Exacerbated by: Coughing Relieved by: Denies Similar symptoms previously: No Recently seen / treated by doctor: No Notes: 74 year old female with a history of multiple strokes with right sided hemiparesis, HTN, HLD, DM, GERD brought to the ER by EMS for nausea/vomiting, concern of aspiration, and hypoxia. The patient was tachycardic and hypoxic on ER arrival with vomit on her shirt. The patient was unable to provide a history due to her previous strokes and current symptoms. History was obtained from the patient's over the phone by me. The patient's told me the patient was fine one moment and the next moment she started vomiting and then choking. The patient's feels the patient aspirated. The patient's denies recent illness, fevers, chills, sweats, diarrhea, urinary symptoms. - Related Data Allergies/Adverse Reactions: No Known Allergies Allergy (Verified 01/16/19 16:22) Past Medical History - General Information source: Relative - patients Cannot obtain history due to: Dementia - Social History Smoking Status: Never Smoker Frequency of alcohol use: None Drug Abuse: None Lives with: Spouse/Significant other Family History: Reviewed & Not Pertinent - Past Medical History Cardiac Medical History: Reports: Hx Hypercholesterolemia, Hx Hypertension Denies: Hx Congestive Heart Failure, Hx Heart Attack, Hx Pulmonary Embolism Pulmonary Medical History: Reports: Hx Bronchitis Denies: Hx Asthma, Hx COPD, Hx Pneumonia Neurological Medical History: Reports: Hx Cerebrovascular Accident. Denies: Hx Seizures Endocrine Medical History: Reports: Hx Diabetes Mellitus Type 2. Denies: Hx Diabetes Mellitus Type 1, Hx Hyperthyroidism, Hx Hypothyroidism Renal/ Medical History: Denies: Hx Peritoneal Dialysis GI Medical History: Reports: Hx Gastroesophageal Reflux Disease. Denies: Hx Cirrhosis, Hx Hepatitis Musculoskeletal Medical History: Denies Hx Arthritis Psychiatric Medical History: Denies: Hx Depression Infectious Medical History: Denies: Hx Hepatitis Past Surgical History: Reports: Hx Hysterectomy. Denies: Hx Pacemaker - Immunizations Hx Diphtheria, Pertussis, Tetanus Vaccination: No Hx Pneumococcal Vaccination: 07/21/15 Review of Systems - Review of Systems Constitutional: Weakness EENT: No symptoms reported Cardiovascular: No symptoms reported Respiratory: Short of breath, Wheezing Gastrointestinal: Vomiting Genitourinary: No symptoms reported Female Genitourinary: No symptoms reported Musculoskeletal: No symptoms reported Skin: No symptoms reported Hematologic/Lymphatic: No symptoms reported Neurological/Psychological: Other - right sided weakness, confusion -: Yes All other systems reviewed and negative Physical Exam - Vital signs Vitals: Temp 97.9 F 03/07/20 19:52 - Notes Notes: GENERAL: Well-appearing, well-nourished and in no acute distress. HEAD: Atraumatic, normocephalic. EYES: Pupils equal round and reactive to light, extraocular movements intact, sclera anicteric, conjunctiva are normal. ENT: External ears normal, nares patent, oropharynx clear without exudates. Moist mucous membranes. NECK: Normal range of motion, supple without lymphadenopathy or JVD. LUNGS: Course breath sounds, Mild wheezing. Respiratory distress. HEART: Tachycardic, normal rhythm without murmurs, rubs or gallops. ABDOMEN: Soft, nontender, normoactive bowel sounds. No guarding, no rebound. No masses appreciated. EXTREMITIES: Normal range of motion, no pitting or edema. No clubbing or cyanosis. NEUROLOGICAL: Right sided hemiparesis. Patient is nonresponsive to verbal stimuli but she responds to painful stimuli. PSYCH: Unable to assess. SKIN: Warm, Dry, normal turgor, no rashes or lesions noted. Course - Re-evaluation Re-evalutation: 03/08/20 01:42 The patient arrived tacycardic, hypoxic, and altered. Patient is DNR but told me on the phone he would consider intubation if we thought the patient could survive. The patient aspirated after vomiting at home. The patient's lactic acid was elevated on ER arrival and wiley despite IV fluids but this was likely due to her prolonged hypoxic spell. Patient was placed on a nonrebreather on ER arrival but she was able to be transitioned to nasal cannula after some deep suctioning. The patient does not have a fever or elevated WBC. Patient therefore was not started on antibiotics. If patient develops fevers antibiotics should be given then. CT abdomen was ordered since patient seemed to have abdominal pain on physical exam and was fairly nonverbal. CT showed no acute abdominal process but areas of inflammation in the lungs likely from aspiration. Patient admitted to a medical floor for further treatment and care. - Vital Signs Vital signs: Temp Pulse Resp BP Pulse Ox 98.4 F 23 H 142/86 H 99 03/07/20 23:04 03/08/20 01:01 03/08/20 01:01 03/08/20 01:01 - Laboratory Result Diagrams: 03/07/20 20:30 03/07/20 22:55 Laboratory results interpreted by me: 03/07/20 03/07/20 03/07/20 20:23 20:28 20:30 RDW 14.3 H [place] % (Auto) 2.6 L PT Carbonic Acid 1.43 H ABG pCO2 47.5 H ABG HCO3 26.7 H ABG Total CO2 28.1 H BUN Glucose POC Glucose 276 H Lactic Acid AST Urine Glucose (UA) Urine Blood 03/07/20 03/07/20 03/07/20 20:30 20:30 22:33 RDW [place] % (Auto) PT 26.1 H Carbonic Acid ABG pCO2 ABG HCO3 ABG Total CO2 BUN Glucose POC Glucose Lactic Acid 4.6 H AST Urine Glucose (UA) 50 H Urine Blood SMALL H 03/07/20 03/07/20 22:55 22:55 RDW [place] % (Auto) PT Carbonic Acid ABG pCO2 ABG HCO3 ABG Total CO2 BUN 26 H Glucose 269 H POC Glucose Lactic Acid 5.6 H AST 37 H Urine Glucose (UA) Urine Blood - Diagnostic Test Radiology reviewed: Image reviewed, Reports reviewed Discharge - Discharge Clinical Impression: Lactic acidosis Aspiration into airway Qualifiers: Encounter type: initial encounter Qualified Code(s): T17.908A - Unspecified foreign body in respiratory tract, part unspecified causing other injury, initial encounter Condition: Fair Disposition: ADMITTED INPATIENT Admitting Provider: Vicente (Hospitalist) Unit Admitted: Medical Floor
--- NOTE | 2020-03-07 20:43 | RADIOLOGY REPORT (SQ) ---
EXAM DESCRIPTION: XR CHEST 1 VIEW COMPLETED DATE/TME: 03/07/2020 20:04 CLINICAL HISTORY: 74 years, Female, eval for aspiration COMPARISON: Prior study from 02/21/2019 NUMBER OF VIEWS: One TECHNIQUE: Single frontal view of the chest was obtained portably LIMITATIONS: None. FINDINGS: Cardiac and mediastinal contours are stable. Lungs are clear. No pleural effusion or pneumothorax. Moderate left glenohumeral joint arthrosis is evident. IMPRESSION: No acute disease. copyright 2010 [employer]- All Rights Reserved
[2020-03-07 20:51] LABS: ABSOLUTE EOSINOPHILS # (AUTO) 0.1 10^3/uL (0.0-0.6); ABSOLUTE LYMPHOCYTES (AUTO) 3.1 10^3/uL (0.5-4.7); ABSOLUTE MONOCYTES (AUTO) 0.2 10^3/uL (0.1-1.4); ABSOLUTE NEUT (AUTO) 4.4 10^3/uL (1.7-8.2); BASOPHILS % (AUTO) 0.4 % (0-2); EOSINOPHILS % (AUTO) 1.7 % (0-6); HEMATOCRIT 44.2 % (36.0-47.0); HEMOGLOBIN 14.6 g/dL (12.0-15.5); LYMPHOCYTES % (AUTO) 39.3 % (13-45); MEAN CORPUSCULAR HEMOGLOBIN 30.4 pg (27.0-33.4); MEAN CORPUSCULAR VOLUME 92 fl (80-97); MONOCYTES % (AUTO) 2.6 % (3-13); PLATELET COUNT 234 10^3/uL (150-450); RED BLOOD COUNT 4.81 10^6/uL (3.72-5.28); RED CELL DISTRIBUTION WIDTH 14.3 % (11.5-14.0); TOTAL CELLS COUNTED % (AUTO) 100 %; WHITE BLOOD COUNT 7.9 10^3/uL (4.0-10.5)
[2020-03-07 20:58] LABS: INTERNATIONAL RATION (INR) 2.35; PROTHROMBIN TIME 26.1 SEC (11.4-15.4)
[2020-03-07 22:19] LABS: ARTERIAL BLOOD BASE EXCESS 0.8 mmol/L; ARTERIAL BLOOD FIO2 15; ARTERIAL BLOOD H2CO3 1.43 mmol/L (1.05-1.35); ARTERIAL BLOOD HCO3 26.7 mmol/L (20-24); ARTERIAL BLOOD O2 SATURATION 96.5 % (94-98); ARTERIAL BLOOD PCO2 47.5 mmHg (35-45); ARTERIAL BLOOD PH 7.37 (7.35-7.45); ARTERIAL BLOOD PO2 89.1 mmHg (80-100); ARTERIAL BLOOD TOTAL CO2 28.1 mmol/L (21-25)
[2020-03-07] MEDS: NORMAL SALINE 1000 ML 1,000 ML IV PRN ×2 (22:22→23:28)
--- NOTE | 2020-03-07 22:24 | RADIOLOGY REPORT (SQ) ---
INDICATION: eval for AMS. Mental status change COMPARISON: February 21, 2019 CORRELATION: None TECHNIQUE: Noncontrast spiral axial CT images were obtained from the skull base to vertex. This exam was performed according to our departmental dose-optimization program, which includes automated exposure control, adjustment of the mA and/or kV according to patient size and/or use of iterative reconstruction techniques. FINDINGS: There is no evidence of acute intracranial hemorrhage, midline shift, mass effect or mass lesion. Reid-white differentiation is normal. There is no evidence of acute large territory infarct. Age-related involutional changes are identified. Presumed old small vessel ischemic changes are seen predominantly in a periventricular distribution.. Carotid calcification The visualized paranasal sinuses are grossly clear. The orbits and eyeballs are unremarkable. The mastoid air cells are clear. Skull base and calvarium appear intact. IMPRESSION: No acute intracranial process is identified. Age-related involutional changes are identified. Presumed old small vessel ischemic changes are seen predominantly in a periventricular distribution.
[2020-03-07 22:56] LABS: APPEARANCE,URINE CLEAR; BILIRUBIN,URINE NEGATIVE (NEGATIVE); COLOR,URINE YELLOW; GLUCOSE, URINE 50 mg/dL (NEGATIVE); KETONES,URINE NEGATIVE (NEGATIVE); PROTEIN,URINE NEGATIVE (NEGATIVE); UROBILINOGEN,URINE NEGATIVE mg/dL (<2.0)
[2020-03-07 23:25] LABS: ALBUMIN 4.1 g/dL (3.5-5.0); ALKALINE PHOSPHATASE 111 U/L (38-126); ANION GAP 10 (5-19); ASPARTATE AMINO TRANSFERASE 37 U/L (14-36); BILIRUBIN,DIRECT 0.1 mg/dL (0.0-0.4); BILIRUBIN,TOTAL 0.5 mg/dL (0.2-1.3); BLOOD UREA NITROGEN 26 mg/dL (7-20); CALCIUM 9.7 mg/dL (8.4-10.2); CARBON DIOXIDE 29 mmol/L (22-30); CHLORIDE 102 mmol/L (98-107); GLUCOSE 269 mg/dL (75-110); POTASSIUM 3.6 mmol/L (3.6-5.0); TOTAL PROTEIN 7.6 g/dL (6.3-8.2)
[2020-03-07] MEDS ORDERED: NORMAL SALINE 1000 ML 1,000 ML IV ONE (23:37)
[2020-03-07 23:38] LABS: NT PRO BNP 111 pg/mL (<450); TROPONIN I < 0.012 ng/mL
[2020-03-08] MEDS ORDERED: MAG HYDROX/AL HYDROX/SIMETH SUSP 30 ML UDCUP PO PRN (00:40)
[2020-03-08] MEDS ORDERED: MAGNESIUM HYDROXIDE SUSP 30 ML UDCUP PO PRN (00:40)
[2020-03-08] MEDS ORDERED: ONDANSETRON HCL INJ/PF 4 MG/2 ML SDV IV PRN (00:40)
[2020-03-08] MEDS ORDERED: ACETAMINOPHEN 325 MG TABLET PO PRN (00:50)
[2020-03-08] MEDS ORDERED: GUAIFENESIN SYRP 200 MG/10 ML UDC PO PRN (00:50)
[2020-03-08] MEDS ORDERED: METOPROLOL TARTRATE PF/INJ 5 MG/5 ML SDV IV PRN (00:50)
[2020-03-08] MEDS ORDERED: LORAZEPAM INJ 2 MG/1 ML VIAL IV PRN (00:50)
[2020-03-08] MEDS ORDERED: HYDRALAZINE HCL INJ/PF 20 MG/1 ML SDV IV PRN (00:50)
[2020-03-08] MEDS ORDERED: GLUCAGON,HUMAN RECOMB 1 MG INJ IM PRN (00:51)
[2020-03-08] MEDS ORDERED: DEXTROSE 40% GEL 15 GM TUBE PO PRN ×2 (00:51)
[2020-03-08] MEDS ORDERED: DEXTROSE 50%-WATER 25 GM/50 ML DISP.SYRIN IV PRN ×2 (00:51)
--- NOTE | 2020-03-08 01:03 | RADIOLOGY REPORT (SQ) ---
CLINICAL INDICATION: abdominal pain. lactic acid rising. r/o ischemia. CREAT 0.85. . TECHNIQUE: Contrast enhanced spiral axial CT imaging was obtained of the abdomen and pelvis with multiplanar reconstructions. This exam was performed according to our departmental dose-optimization program, which includes automated exposure control, adjustment of the mA and/or kV according to patient size and/or use of iterative reconstruction techniques. COMPARISON: March 13, 2018. CORRELATION: None. FINDINGS: Abdomen: The lung bases demonstrate dense airspace consolidative change in the lung bases, particularly right lower lobe. No significant pleural fluid. No pneumothorax. Subtle interstitial changes are seen bilaterally with associated fluffy alveolar space disease more diffusely. These are adverse change from prior. Presumed infectious inflammatory. The heart is of normal size. No evidence of pleural or pericardial fluid. The liver is homogeneous. The gallbladder is nondistended without inflammatory change. The pancreas is unremarkable. The spleen is unremarkable. The adrenals are unremarkable. The kidneys appear grossly normal without evidence of urolithiasis or hydronephrosis. There is no evidence of free air. No free fluid. No bulky adenopathy. Abdominal aorta is nonaneurysmal. Pelvis: The bowel is nonobstructed. The bowel is unopacified with oral contrast. Pelvic contents demonstrate a decompressed urinary bladder with a Garcia catheter. The appendix is not seen. Mild fecal impaction within the rectum.. Visualized bones are unremarkable. IMPRESSION: Artifact from the patient's arms. Imaging is degraded by patient motion, with resultant artifact. The best possible images were obtained. Airspace consolidation right lower lobe, with associated diffuse interstitial and fluffy alveolar space changes bilaterally, likely infectious inflammatory. No acute intra-abdominal process is identified. Imaging is degraded significantly by motion.
[2020-03-08] MEDS: INSULIN REG, HUMAN 100 UNIT/ML 3 ML VIAL (PYX) SUBCUT SCH ×5 (02:28→21:58)
[2020-03-08 02:39] LABS: HEMATOCRIT 42.4 % (36.0-47.0); MEAN CORPUSCULAR HEMOGLOBIN 30.5 pg (27.0-33.4); MEAN CORPUSCULAR HGB CONC 33.1 g/dL (32.0-36.0); MEAN CORPUSCULAR VOLUME 92 fl (80-97); PLATELET COUNT 166 10^3/uL (150-450); RED CELL DISTRIBUTION WIDTH 13.7 % (11.5-14.0); WHITE BLOOD COUNT 9.5 10^3/uL (4.0-10.5)
[2020-03-08] MEDS: RINGERS SOLUTION,LACTATED 1,000 ML IV PRN ×2 (03:31→08:37)
--- NOTE | 2020-03-08 03:35 | PDOC H&P ---
History of Present Illness Admission Date/PCP: 03/08/2020 00:07 HARIKA BENITEZ MD Patient complains of: Coughing History of Present Illness: ELÍAS ANDRADE is a 74 year old female who presented to the emergency room via EMS with an acute onset of persistent cough. Patient has an expressive aphasia with some degree of vascular dementia and is unable to contribute to her history. Her related that she was in her usual state at home when she suddenly vomited several times and then began repetitive coughing. Her repetitive coughing was accompanied by a rapid decrease in her level of alertness and she became poorly responsive causing him a great alarm and resulting in his call to EMS. In the emergency room she was found to be hypoxic, tachycardic and was noted to have an elevated lactic acid level. She was treated with supplemental oxygen and showed gradual improvement returning to her approximate baseline level of alertness, though still requiring oxygen for maintenance of an adequate O2 saturation. She was subsequently admitted to the hospital for further evaluation and treatment. Past Medical History Past Medical History: Due to the patient's inability to provide information secondary to her expressive aphasia and vascular dementia all information for past medical history, past surgical history, social history and family medical history is obtained from the best available reliable source. Cardiac Medical History: Reports: Hyperlipidema, Hypertension Denies: Congestive Heart Failure, Myocardial Infarction, Pulmonary Embolism Pulmonary Medical History: Reports: Bronchitis Denies: Asthma, Chronic Obstructive Pulmonary Disease (COPD), Pneumonia EENT Medical History: Denies: Cataracts, Ears - Hearing aids Neurological Medical History: Reports: Ischemic CVA Denies: Hemorrhagic CVA, Seizures Endocrine Medical History: Reports: Diabetes Mellitus Type 2 Denies: Diabetes Mellitus Type 1, Hyperthyroidism, Hypothyroidism Renal/ Medical History: Denies: Chronic Kidney Disease, Nephrolithiasis Malignancy Medical History: Reports: None GI Medical History: Reports: Gastroesophageal Reflux Disease Denies: Cirrhosis, Hepatitis Musculoskeltal Medical History: Denies: Arthritis, Gout Skin Medical History: Denies: Eczema, Psoriasis Psychiatric Medical History: Denies: Alcohol Dependency, Depression, Substance Abuse, Tobacco Dependency Traumatic Medical History: Reports: None Hematology: Reports: Anemia Denies: Bleeding Tendencies Infectious Medical History: Reports: None Past Surgical History Past Surgical History: Due to the patient's inability to provide information secondary to her expressive aphasia and vascular dementia all information for past medical history, past surgical history, social history and family medical history is obtained from the best available reliable source. Past Surgical History: Reports: Hysterectomy Social History Information Source: [facility] Records Lives with: Spouse/Significant other Smoking Status: Never Smoker Electronic Cigarette use?: No Frequency of Alcohol Use: None Hx Recreational Drug Use: No Drugs: None Hx Prescription Drug Abuse: No Past Social History Note: Due to the patient's inability to provide information secondary to her expressive aphasia and vascular dementia all information for past medical history, past surgical history, social history and family medical history is obtained from the best available reliable source. - Advance Directive Resuscitation Status: Do Not Resuscitate Surrogate healthcare decision maker:: Chiqui Andrade Family History Family History: CVA, DM, Hypertension Family History: Due to the patient's inability to provide information secondary to her expressive aphasia and vascular dementia all information for past medical history, past surgical history, social history and family medical history is obtained from the best available reliable source. Parental Family History Reviewed: Yes Children Family History Reviewed: No Sibling(s) Family History Reviewed.: Yes Medication/Allergy Home Medications: Hydrochlorothiazide [Hydrodiuril 25 mg Tablet] 25 mg PO DAILY 01/16/19 Metformin HCl [Glucophage 500 mg Tablet] 1,000 mg PO [id number] PRN 01/16/19 Atorvastatin Calcium [Lipitor 80 mg Tablet] 80 mg PO QHS #30 tablet 01/20/19 Ramipril [Altace 10 mg Capsule] 10 mg PO Q12 capsule 01/20/19 Cholecalciferol (Vitamin D3) [Vitamin D3 3000 unit Tablet] 3,000 unit PO DAILY 02/21/19 Insulin Detemir [Levemir] 25 unit SQ DAILY 02/21/19 Ipratropium [place] [Atrovent 0.06% Nasal [place]] 2 spray NASL BID 02/21/19 Ubidecarenone/Vitamin E Mixed [Coq10 Sg 100 Softgel] 1 each PO DAILY 02/21/19 Amlodipine Besylate [Norvasc 5 mg Tablet] 5 mg PO QHS #30 tablet 02/25/19 Enoxaparin Sodium [Lovenox Inj 80 mg/0.8 ml Disp.syrin] 70 mg SUBCUT Q12A #14 disp.syrin 02/25/19 Warfarin Sodium [Coumadin 5 mg Tablet] 5 mg PO QHS #30 tablet 02/25/19 Allergies/Adverse Reactions: No Known Allergies Allergy (Verified 01/16/19 16:22) Review of Systems ROS unobtainable: Due to mental status Physical Exam Vital Signs: Temp Pulse Resp BP Pulse Ox 98.4 F 27 H 158/93 H 100 03/07/20 23:04 03/07/20 23:01 03/07/20 22:59 03/07/20 23:01 Intake & Output 03/06/20 03/07/20 03/08/20 23:59 23:59 23:59 Intake Total 1000 Output Total 250 Balance 750 Weight 60.6 kg General appearance: PRESENT: no acute distress, cooperative, other - On O2 per nasal cannula at the time of my exam Head exam: PRESENT: atraumatic, normocephalic Eye exam: PRESENT: conjunctiva pink. ABSENT: conjunctival injection, scleral icterus Ear exam: PRESENT: normal external ear exam. ABSENT: bleeding, drainage Mouth exam: PRESENT: dry mucosa, neck supple Neck exam: ABSENT: JVD, thyromegaly, tracheal deviation Respiratory exam: PRESENT: clear to auscultation gwendolyn, symmetrical, unlabored Cardiovascular exam: PRESENT: RRR. ABSENT: clicks, gallop, rubs Pulses: PRESENT: normal radial pulses, normal dorsalis pedis pul Vascular exam: PRESENT: normal capillary refill. ABSENT: pallor GI/Abdominal exam: PRESENT: normal bowel sounds, soft Rectal exam: PRESENT: deferred Extremities exam: ABSENT: joint swelling, pedal edema Musculoskeletal exam: PRESENT: other - Right hemiplegia is noted. ABSENT: deformity, dislocation Neurological exam: PRESENT: awake, motor sensory deficit - Right hemiplegia is noted Psychiatric exam: PRESENT: flat affect, other - Calm Skin exam: PRESENT: dry, intact, warm. ABSENT: jaundice, rash, urticaria Results Laboratory Results: 03/07/20 20:30 03/07/20 22:55 03/07/20 03/07/20 03/07/20 20:28 20:30 20:30 WBC 7.9 RBC 4.81 Hgb 14.6 Hct 44.2 MCV 92 MCH 30.4 MCHC 33.0 RDW 14.3 H Plt Count 234 Seg Neutrophils % 56.0 Carbonic Acid 1.43 H HCO3/H2CO3 Ratio 18:1 ABG pH 7.37 ABG pCO2 47.5 H ABG pO2 89.1 ABG HCO3 26.7 H ABG O2 Saturation 96.5 ABG Base Excess 0.8 FiO2 15 Sodium Cancelled Potassium Cancelled Chloride Cancelled Carbon Dioxide Cancelled Anion Gap Cancelled BUN Cancelled Creatinine Cancelled Est GFR ( Amer) Cancelled Est GFR (Non-Af Amer) Cancelled Glucose Cancelled Lactic Acid Calcium Cancelled Total Bilirubin Cancelled AST Cancelled Alkaline Phosphatase Cancelled Total Protein Cancelled Albumin Cancelled Urine Color Urine Appearance Urine pH Ur Specific [place] Urine Protein Urine Glucose (UA) Urine Ketones Urine Blood Urine RBC (Auto) 03/07/20 03/07/20 03/07/20 20:30 22:33 22:55 WBC RBC Hgb Hct MCV MCH MCHC RDW Plt Count Seg Neutrophils % Carbonic Acid HCO3/H2CO3 Ratio ABG pH ABG pCO2 ABG pO2 ABG HCO3 ABG O2 Saturation ABG Base Excess FiO2 Sodium Potassium Chloride Carbon Dioxide Anion Gap BUN Creatinine Est GFR ( Amer) Est GFR (Non-Af Amer) Glucose Lactic Acid 4.6 H 5.6 H Calcium Total Bilirubin AST Alkaline Phosphatase Total Protein Albumin Urine Color YELLOW Urine Appearance CLEAR Urine pH 5.0 Ur Specific [place] 1.010 Urine Protein NEGATIVE Urine Glucose (UA) 50 H Urine Ketones NEGATIVE Urine Blood SMALL H Urine RBC (Auto) 5 03/07/20 22:55 WBC RBC Hgb Hct MCV MCH MCHC RDW Plt Count Seg Neutrophils % Carbonic Acid HCO3/H2CO3 Ratio ABG pH ABG pCO2 ABG pO2 ABG HCO3 ABG O2 Saturation ABG Base Excess FiO2 Sodium 141.3 Potassium 3.6 Chloride 102 Carbon Dioxide 29 Anion Gap 10 BUN 26 H Creatinine 0.85 Est GFR ( Amer) > 60 Est GFR (Non-Af Amer) Glucose 269 H Lactic Acid Calcium 9.7 Total Bilirubin 0.5 AST 37 H Alkaline Phosphatase 111 Total Protein 7.6 Albumin 4.1 Urine Color Urine Appearance Urine pH Ur Specific [place] Urine Protein Urine Glucose (UA) Urine Ketones Urine Blood Urine RBC (Auto) 03/07/20 03/07/20 20:30 22:55 Troponin I Cancelled < 0.012 NT-Pro-B Natriuret Pep Cancelled 111 Impressions: Chest X-Ray 03/07/20 20:04 IMPRESSION: No acute disease. copyright 2010 [employer]- All Rights Reserved Head CT 03/07/20 20:05 IMPRESSION: No acute intracranial process is identified. Age-related involutional changes are identified. Presumed old small vessel ischemic changes are seen predominantly in a periventricular distribution. Assessment and Plan - Diagnosis (1) Acute respiratory failure with hypoxia Is this a current diagnosis for this admission?: Yes (2) Aspiration into airway Qualifiers: Encounter type: initial encounter Qualified Code(s): T17.908A - Unspecified foreign body in respiratory tract, part unspecified causing other injury, initial encounter Is this a current diagnosis for this admission?: Yes (3) Elevated lactic acid level Is this a current diagnosis for this admission?: Yes (4) HTN (hypertension) Qualifiers: Hypertension type: essential hypertension Qualified Code(s): I10 - Essential (primary) hypertension Is this a current diagnosis for this admission?: Yes (5) Diabetes mellitus type 2 in nonobese Is this a current diagnosis for this admission?: Yes (6) Hyperlipidemia Qualifiers: Hyperlipidemia type: unspecified Qualified Code(s): E78.5 - Hyperlipidemia, unspecified Is this a current diagnosis for this admission?: Yes (7) History of CVA (cerebrovascular accident) Is this a current diagnosis for this admission?: Yes - Plan Summary Summary: Patient is admitted to the medical floor where she received routine supportive and symptomatic cares. She will continue receive supplemental oxygen as needed to maintain an adequate O2 saturation. She will be placed on a pulmonary toilet utilizing Xopenex and Mucomyst delivered via nebulizer twice daily. She will be monitored closely for evidence of aspiration pneumonitis and a repeat chest x- ray will be obtained in on the morning of 03/09/2020. She received Ativan 1 mg IV every 4 hours as needed for anxiety or restlessness. She will be continued on her usual home medications as soon as her medication list can be verified and reconciled. CBCs, metabolic profiles, magnesium levels and additional radiographic evaluations will be performed as appropriate. Patient will be on a diabetic and cardiac restricted diet. Before meals and at bedtime Accu-Cheks will be obtained with sliding scale insulin used to cover hyperglycemia and a hypoglycemic protocol in place. The patient is DNR status. - Time Time Spent with patient: Less than 15 minutes Medications reviewed and adjusted accordingly: Yes Anticipated discharge: Home with Homehealth - Inpatient Certification Based on my medical assessment, after consideration of the patient's comorbidities, presenting symptoms, or acuity I expect that the services needed warrant INPATIENT care.: Yes I certify that my determination is in accordance with my understanding of Medicare's requirements for reasonable and necessary INPATIENT services [42 CFR 412.3e].: Yes Medical Necessity: Significant Comorbidiites Make Outpatient Treatment Too Risky, Need Close Monitoring Due to Risk of Patient Decompensation, Need for Nebulizer Therapy and Monitoring of Response, Risk of Diagnosis Which Will R equire Inpatient Eval/Care/Monitoring
[2020-03-08] MEDS: LEVALBUTEROL HCL NEB 0.63 MG/3 ML AMPUL NEB PRN ×2 (08:25→20:38)
[2020-03-08] MEDS: ACETYLCYSTEINE 20% SOLN 800 MG/4 ML VIAL.NEB NEB SCH ×2 (08:25→20:38)
[2020-03-08] MEDS: DOCUSATE SODIUM 100 MG CAPSULE PO SCH ×2 (09:37→18:04)
[2020-03-08] MEDS: FAMOTIDINE 20 MG TABLET PO SCH ×2 (09:37→22:00)
--- NOTE | 2020-03-08 11:01 | RADIOLOGY REPORT (SQ) ---
EXAM DESCRIPTION: CT CHEST WITHOUT IMAGES COMPLETED DATE/TIME: 03/08/2020 10:34 am REASON FOR STUDY: acute resp failure; hypoxia COMPARISON: 03/07/2020 TECHNIQUE: CT scan performed of the chest without intravenous contrast. Images reviewed with lung, soft tissue and bone windows. Reconstructed coronal and sagittal MPR images reviewed. All images st ored on PACS. All CT scanners at this facility use dose modulation, iterative reconstruction, and/or weight based d osing when appropriate to reduce radiation dose to as low as reasonably achievable (ALARA). [facility]: Dose Right [facility]: CareDose [facility]: Dose Right [facility]: Teradose 4D [facility]: [employer] RADIATION DOSE: CT Rad equipment meets quality standard of care and radiation dose reduction techniq ues were employed. CTDIvol: 6.1 mGy. DLP: 244 mGy-cm. mGy. LIMITATIONS: No technical limitations. FINDINGS: LUNGS AND PLEURA: Patchy bilateral lower lobe consolidation, right greater than left. The re additional multifocal areas of ground-glass attenuation within the right middle and upper lobes. Small bilateral pleural effusions, right greater than left. No pneumothorax. No discrete pulmonary mass. HILAR AND MEDIASTINAL STRUCTURES: No identified masses or abnormal nodes. No obvious aneurysm. HEART AND VASCULAR STRUCTURES: No aneurysm. Normal heart size. Scattered three-vessel coronary athe rosclerosis. No significant pericardial effusion. UPPER ABDOMEN: Contrast within the bilateral renal collecting systems. No other evidence of acute in tra-abdominal process. THYROID AND OTHER SOFT TISSUES: No masses. No adenopathy. BONES: No acute bony abnormality. No discrete lytic or blastic osseous lesions. HARDWARE: None in the chest. OTHER: No other significant findings. IMPRESSION: 1. Patchy bilateral consolidation and ground-glass attenuation, right greater than left , compatible with multifocal pneumonia. Trace effusions. 2. Coronary atherosclerosis. TECHNICAL DOCUMENTATION: JOB ID: [id number] Quality ID # [id number]: Final reports with documentation of one or more dose reduction techniques (e.g., Au tomated exposure control, adjustment of the mA and/or kV according to patient size, use of iterative reconstruction technique) 2010 [employer]- All Rights Reserved Reading location - IP[facility]workstation name: [email or web address]
[2020-03-08] MEDS ORDERED: NORMAL SALINE 1000 ML 500 ML IV ONE (16:48)
--- NOTE | 2020-03-08 18:21 | PDOC PROGRESS REPORT ---
Subjective Progress Note for:: 03/08/20 Subjective:: Patient was seen on morning rounds. She was found resting in bed, comfortably, on room air. She was sleeping soundly and did not wake when I said her name. Per nursing, she has been intermittently awake but for the most part fatigued/sleeping. She does appear to be comfortable and is not noted to be in any acute distress at this time. Per nursing, she has had decreased urinary output today and has not been taking oral fluids. Otherwise, no questions or concerns at this time. Reason For Visit: ACUTE RESPIRATORY FAILURE WITH HYPOXIA Physical Exam Vital Signs: Temp Pulse Resp BP Pulse Ox 98.0 F 83 18 147/51 H 100 03/08/20 11:08 03/08/20 11:08 03/08/20 11:08 03/08/20 11:08 03/08/20 11:08 Intake & Output 03/07/20 03/08/20 03/09/20 06:59 06:59 06:59 Intake Total 3050 2000 Output Total 750 150 Balance 2300 1850 Weight 60.6 kg General appearance: PRESENT: no acute distress, thin, well-developed, other - Frail, chronically ill-appearing Head exam: PRESENT: atraumatic, normocephalic Eye exam: PRESENT: conjunctiva pink, EOMI, PERRLA. ABSENT: scleral icterus Mouth exam: PRESENT: dry mucosa, tongue midline Respiratory exam: PRESENT: clear to auscultation gwendolyn, decreased breath sounds - Bibasilar, symmetrical, unlabored, other - Room air. ABSENT: rales, rhonchi, wheezes Cardiovascular exam: PRESENT: RRR. ABSENT: diastolic murmur, rubs, systolic murmur Pulses: PRESENT: normal dorsalis pedis pul Vascular exam: PRESENT: normal capillary refill Rectal exam: PRESENT: deferred Gentrourinary exam: PRESENT: indwelling catheter Extremities exam: PRESENT: full ROM. ABSENT: calf tenderness, clubbing, pedal edema Neurological exam: PRESENT: CN II-XII grossly intact, other - sleeping soundly. ABSENT: motor sensory deficit Skin exam: PRESENT: dry, intact, warm. ABSENT: cyanosis, rash Results Laboratory Results: 03/08/20 02:25 03/07/20 22:55 03/07/20 03/07/20 03/07/20 20:28 20:30 20:30 WBC 7.9 RBC 4.81 Hgb 14.6 Hct 44.2 MCV 92 MCH 30.4 MCHC 33.0 RDW 14.3 H Plt Count 234 Seg Neutrophils % 56.0 Carbonic Acid 1.43 H HCO3/H2CO3 Ratio 18:1 ABG pH 7.37 ABG pCO2 47.5 H ABG pO2 89.1 ABG HCO3 26.7 H ABG O2 Saturation 96.5 ABG Base Excess 0.8 FiO2 15 Sodium Cancelled Potassium Cancelled Chloride Cancelled Carbon Dioxide Cancelled Anion Gap Cancelled BUN Cancelled Creatinine Cancelled Est GFR ( Amer) Cancelled Est GFR (Non-Af Amer) Cancelled Glucose Cancelled Lactic Acid Calcium Cancelled Total Bilirubin Cancelled AST Cancelled Alkaline Phosphatase Cancelled Total Protein Cancelled Albumin Cancelled Urine Color Urine Appearance Urine pH Ur Specific [place] Urine Protein Urine Glucose (UA) Urine Ketones Urine Blood Urine RBC (Auto) 03/07/20 03/07/20 03/07/20 20:30 22:33 22:55 WBC RBC Hgb Hct MCV MCH MCHC RDW Plt Count Seg Neutrophils % Carbonic Acid HCO3/H2CO3 Ratio ABG pH ABG pCO2 ABG pO2 ABG HCO3 ABG O2 Saturation ABG Base Excess FiO2 Sodium Potassium Chloride Carbon Dioxide Anion Gap BUN Creatinine Est GFR ( Amer) Est GFR (Non-Af Amer) Glucose Lactic Acid 4.6 H 5.6 H Calcium Total Bilirubin AST Alkaline Phosphatase Total Protein Albumin Urine Color YELLOW Urine Appearance CLEAR Urine pH 5.0 Ur Specific [place] 1.010 Urine Protein NEGATIVE Urine Glucose (UA) 50 H Urine Ketones NEGATIVE Urine Blood SMALL H Urine RBC (Auto) 5 03/07/20 03/08/20 03/08/20 22:55 02:25 02:25 WBC 9.5 RBC 4.60 Hgb 14.0 Hct 42.4 MCV 92 MCH 30.5 MCHC 33.1 RDW 13.7 Plt Count 166 Seg Neutrophils % Carbonic Acid HCO3/H2CO3 Ratio ABG pH ABG pCO2 ABG pO2 ABG HCO3 ABG O2 Saturation ABG Base Excess FiO2 Sodium 141.3 Potassium 3.6 Chloride 102 Carbon Dioxide 29 Anion Gap 10 BUN 26 H Creatinine 0.85 Est GFR ( Amer) > 60 Est GFR (Non-Af Amer) Glucose 269 H Lactic Acid 4.6 H Calcium 9.7 Total Bilirubin 0.5 AST 37 H Alkaline Phosphatase 111 Total Protein 7.6 Albumin 4.1 Urine Color Urine Appearance Urine pH Ur Specific [place] Urine Protein Urine Glucose (UA) Urine Ketones Urine Blood Urine RBC (Auto) 03/08/20 03/08/20 03/08/20 06:18 12:00 13:57 WBC RBC Hgb Hct MCV MCH MCHC RDW Plt Count Seg Neutrophils % Carbonic Acid HCO3/H2CO3 Ratio ABG pH ABG pCO2 ABG pO2 ABG HCO3 ABG O2 Saturation ABG Base Excess FiO2 Sodium Potassium Chloride Carbon Dioxide Anion Gap BUN Creatinine Est GFR ( Amer) Est GFR (Non-Af Amer) Glucose Lactic Acid 3.3 H 3.5 H 2.5 H Calcium Total Bilirubin AST Alkaline Phosphatase Total Protein Albumin Urine Color Urine Appearance Urine pH Ur Specific [place] Urine Protein Urine Glucose (UA) Urine Ketones Urine Blood Urine RBC (Auto) 03/07/20 03/07/20 20:30 22:55 Troponin I Cancelled < 0.012 NT-Pro-B Natriuret Pep Cancelled 111 Impressions: Chest X-Ray 03/07/20 20:04 IMPRESSION: No acute disease. copyright 2010 [employer]- All Rights Reserved Head CT 03/07/20 20:05 IMPRESSION: No acute intracranial process is identified. Age-related involutional changes are identified. Presumed old small vessel ischemic changes are seen predominantly in a periventricular distribution. Abdomen/Pelvis CT 03/07/20 23:38 IMPRESSION: Artifact from the patient's arms. Imaging is degraded by patient motion, with resultant artifact. The best possible images were obtained. Airspace consolidation right lower lobe, with associated diffuse interstitial and fluffy alveolar space changes bilaterally, likely infectious inflammatory. No acute intra-abdominal process is identified. Imaging is degraded significantly by motion. Chest CT 03/08/20 00:00 IMPRESSION: 1. Patchy bilateral consolidation and ground-glass attenuation, right greater than left, compatible with multifocal pneumonia. Trace effusions. 2. Coronary atherosclerosis. Assessment and Plan - Diagnosis (1) Aspiration pneumonia Qualifiers: Aspiration pneumonia type: due to vomit Laterality: bilateral Lung location: unspecified part of lung Qualified Code(s): J69.0 - Pneumonitis due to inhalation of food and vomit Is this a current diagnosis for this admission?: Yes Plan: Concern regarding potential aspiration pneumonia versus pneumonitis. Although the patient remains clinically stable, she is frail and may have an initial poor immune response. T-max 99.1 last 24 hours. WBC is technically normal though with slight upward trend; will continue monitor. Blood cultures pending. Chest CT today revealed patchy bilateral consolidation with ground glass attenuation; right greater than left, compatible with multifocal pneumonias. We will start on IV Unasyn. Supplemental oxygen as needed maintain saturations greater than 89%. As needed nebulizer treatments. Every 2 turns. (2) Aspiration into airway Qualifiers: Encounter type: initial encounter Qualified Code(s): T17.908A - Unspecified foreign body in respiratory tract, part unspecified causing other injury, initial encounter Is this a current diagnosis for this admission?: Yes Plan: Witnessed aspiration by spouse. Speech therapy is consulted. Aspiration precautions. Assist with meals. (3) Acute respiratory failure with hypoxia Is this a current diagnosis for this admission?: Yes Plan: Secondary to #1 & 2 Evaluation and management as above. Improved; maintaining oxygen saturations on room air. (4) Elevated lactic acid level Is this a current diagnosis for this admission?: Yes Plan: Trending down. Secondary #1-3. Continue gentle IV fluids. Follow-up chemistries. (5) Diabetes mellitus type 2 in nonobese Is this a current diagnosis for this admission?: Yes Plan: We will check A1c with a.m. lab work. Holding oral medications while admitted. Patient is placed on a consistent carb diet. Accu-Cheks before meals and at bedtime with Humalog for sliding scale coverage. Hypoglycemia protocol in place. (6) Hyperlipidemia Qualifiers: Hyperlipidemia type: unspecified Qualified Code(s): E78.5 - Hyperlipidemia, unspecified Is this a current diagnosis for this admission?: Yes Plan: Cardiac diet. (7) HTN (hypertension) Qualifiers: Hypertension type: essential hypertension Qualified Code(s): I10 - Essential (primary) hypertension Is this a current diagnosis for this admission?: Yes (8) History of CVA (cerebrovascular accident) Is this a current diagnosis for this admission?: Yes Plan: Supportive care. Fall and aspiration precautions. PT/OT/ST consultations.
[2020-03-08] MEDS: NORMAL SALINE 1000 ML 1,000 ML IV PRN (18:51)
[2020-03-08] MEDS: AMPICILLIN SODIUM/SULBACTAM NA 1.5 GM in NORMAL SALINE 50 ML IV SCH (20:02)
[2020-03-08] MEDS ORDERED: WARFARIN SODIUM 5 MG TABLET PO SCH (22:00)
[2020-03-09] MEDS ORDERED: AMPICILLIN SODIUM/SULBACTAM NA 1.5 GM in NORMAL SALINE 50 ML IV SCH ×2
[2020-03-09] MEDS: AMPICILLIN SODIUM/SULBACTAM NA 1.5 GM in NORMAL SALINE 50 ML IV SCH ×5 (00:43→23:56)
[2020-03-09 01:55] LABS: APPEARANCE,URINE CLEAR; BILIRUBIN,URINE NEGATIVE (NEGATIVE); COLOR,URINE YELLOW; GLUCOSE, URINE NEGATIVE (NEGATIVE); KETONES,URINE 20 mg/dL (NEGATIVE); LEUKOCYTE ESTERASE,URINE TRACE (NEGATIVE); NITRITE,URINE NEGATIVE (NEGATIVE); PROTEIN,URINE NEGATIVE (NEGATIVE); URINE SPECIFIC GRAVITY 1.016; UROBILINOGEN,URINE NEGATIVE mg/dL (<2.0)
[2020-03-09 06:53] LABS: HEMATOCRIT 32.1 % (36.0-47.0); MEAN CORPUSCULAR HEMOGLOBIN 30.9 pg (27.0-33.4); MEAN CORPUSCULAR HGB CONC 34.5 g/dL (32.0-36.0); MEAN CORPUSCULAR VOLUME 90 fl (80-97); PLATELET COUNT 159 10^3/uL (150-450); RED BLOOD COUNT 3.59 10^6/uL (3.72-5.28); RED CELL DISTRIBUTION WIDTH 13.9 % (11.5-14.0); WHITE BLOOD COUNT 10.7 10^3/uL (4.0-10.5)
[2020-03-09 06:54] LABS: HEMOGLOBIN 11.1 g/dL (12.0-15.5)
[2020-03-09 06:56] LABS: INTERNATIONAL RATION (INR) 3.23; PROTHROMBIN TIME 33.7 SEC (11.4-15.4)
[2020-03-09 07:10] LABS: BLOOD UREA NITROGEN 13 mg/dL (7-20); CALCIUM 8.4 mg/dL (8.4-10.2); GLUCOSE 139 mg/dL (75-110); POTASSIUM 3.6 mmol/L (3.6-5.0)
[2020-03-09 07:19] LABS: ANION GAP 6 (5-19); CARBON DIOXIDE 26 mmol/L (22-30); CHLORIDE 105 mmol/L (98-107)
[2020-03-09] MEDS: INSULIN REG, HUMAN 100 UNIT/ML 3 ML VIAL (PYX) SUBCUT SCH ×4 (08:29→22:18)
[2020-03-09] MEDS: LEVALBUTEROL HCL NEB 0.63 MG/3 ML AMPUL NEB PRN ×2 (08:37→20:38)
[2020-03-09] MEDS: ACETYLCYSTEINE 20% SOLN 800 MG/4 ML VIAL.NEB NEB SCH ×2 (08:37→20:38)
[2020-03-09] MEDS ORDERED: MAG HYDROX/AL HYDROX/SIMETH SUSP 30 ML UDCUP PO ONE (10:45)
[2020-03-09] MEDS: FAMOTIDINE 20 MG TABLET PO SCH ×2 (11:41→22:18)
[2020-03-09] MEDS: DOCUSATE SODIUM 100 MG CAPSULE PO SCH ×2 (11:41→18:10)
[2020-03-09] MEDS: NORMAL SALINE 1000 ML 1,000 ML IV PRN (11:41)
--- NOTE | 2020-03-09 16:27 | PDOC PROGRESS REPORT ---
Subjective Progress Note for:: 03/09/20 Subjective:: Patient was seen on morning rounds. She was found resting in bed, comfortably, on room air. She was sleeping soundly and woke easily when I said her name. She makes eye contact, smiles, and says "Goodmorning."She is A&O to self and place; does not recall how she came to the hospital but does nod her head when I tell her we were worried about aspiration. She tells me that her abdomen hurts and indicates LUQ; no increased pain on palpation. Asks to go home. Smiles broadly when I suggest she may be ready within the next 1-2 days. She denies fever, chest pain, dyspnea, nausea and vomiting. She has no other questions at this time. No concerns per nursing. Reason For Visit: ACUTE RESPIRATORY FAILURE WITH HYPOXIA Physical Exam Vital Signs: Temp Pulse Resp BP Pulse Ox 98.6 F 83 18 150/85 H 100 03/09/20 11:22 03/09/20 11:22 03/09/20 11:22 03/09/20 11:22 03/09/20 11:22 Intake & Output 03/08/20 03/09/20 03/10/20 06:59 06:59 06:59 Intake Total 3050 2720 1220 Output Total 750 1250 Balance 2300 1470 1220 Weight 60.6 kg 60.2 kg General appearance: PRESENT: no acute distress, thin, well-developed, well- nourished, other - Frail, chronically ill-appearing Head exam: PRESENT: atraumatic, normocephalic Eye exam: PRESENT: conjunctiva pink, EOMI, PERRLA. ABSENT: scleral icterus Ear exam: PRESENT: normal external ear exam Mouth exam: PRESENT: moist, tongue midline Respiratory exam: PRESENT: clear to auscultation gwendolyn, symmetrical, unlabored, other - Room air. ABSENT: rales, rhonchi, wheezes Cardiovascular exam: PRESENT: RRR. ABSENT: diastolic murmur, rubs, systolic murmur Pulses: PRESENT: normal dorsalis pedis pul Vascular exam: PRESENT: normal capillary refill GI/Abdominal exam: PRESENT: normal bowel sounds, soft, tenderness - Left upper quadrant. ABSENT: distended, guarding, mass, organolmegaly, rebound Rectal exam: PRESENT: deferred Gentrourinary exam: PRESENT: indwelling catheter Extremities exam: PRESENT: full ROM. ABSENT: calf tenderness, clubbing, pedal edema Neurological exam: PRESENT: alert, awake, oriented to person, oriented to place, CN II-XII grossly intact. ABSENT: motor sensory deficit Psychiatric exam: PRESENT: appropriate affect, normal mood. ABSENT: homicidal ideation, suicidal ideation Skin exam: PRESENT: dry, intact, warm. ABSENT: cyanosis, rash Results Laboratory Results: 03/09/20 06:32 03/09/20 06:32 03/09/20 03/09/20 03/09/20 01:40 06:32 06:32 WBC 10.7 H RBC 3.59 L Hgb 11.1 L D Hct 32.1 L MCV 90 MCH 30.9 MCHC 34.5 RDW 13.9 Plt Count 159 Sodium 136.5 L Potassium 3.6 Chloride 105 Carbon Dioxide 26 Anion Gap 6 BUN 13 Creatinine 0.51 L Est GFR ( Amer) > 60 Glucose 139 H Calcium 8.4 Magnesium 1.4 L Urine Color YELLOW Urine Appearance CLEAR Urine pH 6.0 Ur Specific [place] 1.016 Urine Protein NEGATIVE Urine Glucose (UA) NEGATIVE Urine Ketones 20 H Urine Blood LARGE H Urine Nitrite NEGATIVE Ur Leukocyte Esterase TRACE H Urine WBC (Auto) 9 Urine RBC (Auto) 134 03/07/20 03/07/20 20:30 22:55 Troponin I Cancelled < 0.012 NT-Pro-B Natriuret Pep Cancelled 111 Impressions: Chest X-Ray 03/07/20 20:04 IMPRESSION: No acute disease. copyright 2010 [employer]- All Rights Reserved Head CT 03/07/20 20:05 IMPRESSION: No acute intracranial process is identified. Age-related involutional changes are identified. Presumed old small vessel ischemic changes are seen predominantly in a periventricular distribution. Abdomen/Pelvis CT 03/07/20 23:38 IMPRESSION: Artifact from the patient's arms. Imaging is degraded by patient motion, with resultant artifact. The best possible images were obtained. Airspace consolidation right lower lobe, with associated diffuse interstitial and fluffy alveolar space changes bilaterally, likely infectious inflammatory. No acute intra-abdominal process is identified. Imaging is degraded significantly by motion. Chest CT 03/08/20 00:00 IMPRESSION: 1. Patchy bilateral consolidation and ground-glass attenuation, right greater than left, compatible with multifocal pneumonia. Trace effusions. 2. Coronary atherosclerosis. Assessment and Plan - Diagnosis (1) Aspiration pneumonia Qualifiers: Aspiration pneumonia type: due to vomit Laterality: bilateral Lung location: unspecified part of lung Qualified Code(s): J69.0 - Pneumonitis due to inhalation of food and vomit Is this a current diagnosis for this admission?: Yes Plan: Concern regarding potential aspiration pneumonia versus pneumonitis. Tmax 99.3/24 hrs. WBCs trending up; 7.9-> 9.5-> 10.7 Blood cultures have NGTD Chest CT revealed patchy bilateral consolidation with ground glass attenuation; right greater than left, compatible with multifocal pneumonias. Continue IV Unasyn; Day #2 Supplemental oxygen as needed maintain saturations greater than 89%. As needed nebulizer treatments. Every 2 turns. (2) Aspiration into airway Qualifiers: Encounter type: initial encounter Qualified Code(s): T17.908A - Unspecified foreign body in respiratory tract, part unspecified causing other injury, initial encounter Is this a current diagnosis for this admission?: Yes Plan: Witnessed aspiration by spouse. Speech therapy is consulted; recommend Pureed w/ Thin liquids. Aspiration precautions. Assist with meals. (3) Acute respiratory failure with hypoxia Is this a current diagnosis for this admission?: Yes Plan: Secondary to #1 & 2 Evaluation and management as above. Improved; maintaining oxygen saturations on room air. (4) Elevated lactic acid level Is this a current diagnosis for this admission?: Yes Plan: Trending down. Secondary #1-3. Continue gentle IV fluids. Follow-up chemistries. (5) Diabetes mellitus type 2 in nonobese Is this a current diagnosis for this admission?: Yes Plan: A1C 8.1% Holding oral medications while admitted. Patient is placed on a consistent carb diet. Accu-Cheks before meals and at bedtime with Humalog for sliding scale coverage. Hypoglycemia protocol in place. (6) Hyperlipidemia Qualifiers: Hyperlipidemia type: unspecified Qualified Code(s): E78.5 - Hyperlipidemia, unspecified Is this a current diagnosis for this admission?: Yes Plan: Cardiac diet. (7) HTN (hypertension) Qualifiers: Hypertension type: essential hypertension Qualified Code(s): I10 - Essential (primary) hypertension Is this a current diagnosis for this admission?: Yes (8) History of CVA (cerebrovascular accident) Is this a current diagnosis for this admission?: Yes Plan: Supportive care. Fall and aspiration precautions. PT/OT/ST consultations. - Time Time Spent with patient: 25-34 minutes Medications reviewed and adjusted accordingly: Yes Anticipated discharge: Home with Homehealth Within: within 48 hours
[2020-03-09] MEDS ORDERED: WARFARIN SODIUM 2.5 MG TABLET PO SCH (22:00)
[2020-03-10] MEDS: AMPICILLIN SODIUM/SULBACTAM NA 1.5 GM in NORMAL SALINE 50 ML IV SCH ×3 (05:09→18:15)
[2020-03-10] MEDS: NORMAL SALINE 1000 ML 1,000 ML IV PRN (05:11)
[2020-03-10 07:38] LABS: INTERNATIONAL RATION (INR) 2.62; PROTHROMBIN TIME 28.5 SEC (11.4-15.4)
[2020-03-10 07:49] LABS: HEMATOCRIT 37.3 % (36.0-47.0); HEMOGLOBIN 12.6 g/dL (12.0-15.5); MEAN CORPUSCULAR HEMOGLOBIN 30.5 pg (27.0-33.4); MEAN CORPUSCULAR HGB CONC 33.7 g/dL (32.0-36.0); MEAN CORPUSCULAR VOLUME 90 fl (80-97); PLATELET COUNT 148 10^3/uL (150-450); RED BLOOD COUNT 4.13 10^6/uL (3.72-5.28); RED CELL DISTRIBUTION WIDTH 13.7 % (11.5-14.0); WHITE BLOOD COUNT 7.9 10^3/uL (4.0-10.5)
[2020-03-10 07:57] LABS: ANION GAP 9 (5-19); BLOOD UREA NITROGEN 12 mg/dL (7-20); CALCIUM 8.7 mg/dL (8.4-10.2); CARBON DIOXIDE 24 mmol/L (22-30); CHLORIDE 102 mmol/L (98-107); GLUCOSE 132 mg/dL (75-110); POTASSIUM 3.8 mmol/L (3.6-5.0)
[2020-03-10] MEDS: ACETYLCYSTEINE 20% SOLN 800 MG/4 ML VIAL.NEB NEB SCH (09:12)
[2020-03-10] MEDS: LEVALBUTEROL HCL NEB 0.63 MG/3 ML AMPUL NEB PRN (09:12)
[2020-03-10] MEDS: INSULIN REG, HUMAN 100 UNIT/ML 3 ML VIAL (PYX) SUBCUT SCH ×3 (09:47→16:09)
[2020-03-10] MEDS: FAMOTIDINE 20 MG TABLET PO SCH (09:50)
[2020-03-10] MEDS: DOCUSATE SODIUM 100 MG CAPSULE PO SCH ×2 (09:50→17:51)
[2020-03-10 17:08] VITALS: BP 169/58
[2020-03-10] MEDS ORDERED: RAMIPRIL 10 MG CAPSULE PO SCH (22:00)
--- NOTE | 2020-03-12 19:00 | PDOC DISCHARGE SUMMARY ---
Impression - Admit/DC Date/PCP Admission Date/Primary Care Provider: 03/08/20 00:22 HARIKA BENITEZ MD Discharge Date: 03/10/20 - Discharge Diagnosis (1) Aspiration pneumonia Is this a current diagnosis for this admission?: Yes (2) Aspiration into airway Is this a current diagnosis for this admission?: Yes (3) Acute respiratory failure with hypoxia Is this a current diagnosis for this admission?: Yes (4) Elevated lactic acid level Is this a current diagnosis for this admission?: Yes (5) Diabetes mellitus type 2 in nonobese Is this a current diagnosis for this admission?: Yes (6) Hyperlipidemia Is this a current diagnosis for this admission?: Yes (7) HTN (hypertension) Is this a current diagnosis for this admission?: Yes (8) History of CVA (cerebrovascular accident) Is this a current diagnosis for this admission?: Yes - Additional Information Resuscitation Status: Do Not Resuscitate Discharge Diet: Cardiac, Diabetic, Other (Comments) Discharge Activity: Activity As Tolerated Referrals: HARIKA BENITEZ MD [Primary Care Provider] - 03/17/20 11:15 am Prescriptions: Amoxicillin/Potassium Clav [Augmentin 500-125 Tablet] 1 each PO Q5HP PRN #21 tablet PRN Reason: Home Medications: Ramipril [Altace 10 mg Capsule] 10 mg PO Q12 capsule 01/20/19 Insulin Detemir [Levemir] 25 unit SQ DAILY 02/21/19 Warfarin Sodium [Coumadin 5 mg Tablet] 5 mg PO QHS #30 tablet 02/25/19 Metformin HCl [Glucophage] 500 mg PO BID 03/08/20 Acetaminophen [Tylenol 325 mg Tablet] 650 mg PO Q4HP PRN tablet 03/10/20 Amoxicillin/Potassium Clav [Augmentin 500-125 Tablet] 1 each PO Q5HP PRN #21 tablet 03/10/20 History of Present Illiness History of Present Illness: Per H&P by Dr. Zhang: ELÍAS ANDRADE is a 74 year old female who presented to the emergency room via EMS with an acute onset of persistent cough. Patient has an expressive aphasia with some degree of vascular dementia and is unable to contr ibute to her history. Her related that she was in her usual state at home when she suddenly vomited several times and then began repetitive coughing. Her repetitive coughing was accompanied by a rapid decrease in her level of alertness and she became poorly responsive causing him a great alarm and resulting in his call to EMS. In the emergency room she was found to be hypoxic, tachycardic and was noted to have an elevated lactic acid level. She was treated with supplemental oxygen and showed gradual improvement returning to her approximate baseline level of alertness, though still requiring oxygen for maintenance of an adequate O2 saturation. She was subsequently admitted to the hospital for further evaluation and treatment. Hospital Course Hospital Course: (1) Aspiration pneumonia Concern regarding potential aspiration pneumonia versus pneumonitis. Tmax 99.1/24 hrs. 100.4/48 hrs. Leukocytosis has resolved; 7.9-> 9.5-> 10.7-> 7.9 Blood cultures have NGTD Chest CT revealed patchy bilateral consolidation with ground glass attenuation; right greater than left, compatible with multifocal pneumonias. Received IV Unasyn x3 days. Transition to p.o. Augmentin for completion of antibiotic course post discharge. Received supplemental oxygen as needed; now maintaining saturations on room air. (2) Aspiration into airway Witnessed aspiration by spouse. Speech therapy is consulted; recommend Pureed w/ Thin liquids. Continue Aspiration precautions. Continue Assist with meals. Discussed needs with spouse prior to discharge. (3) Acute respiratory failure with hypoxia Secondary to #1 & 2 Evaluation and management as above. Resolved; maintaining oxygen saturations on room air. (4) Elevated lactic acid level Trending down. Secondary #1-3. (5) Diabetes mellitus type 2 in nonobese A1C 8.1% Resume outpatient regiment on discharge. (6) Hyperlipidemia Cardiac diet. (7) HTN (hypertension) (8) History of CVA (cerebrovascular accident) Supportive care. Fall and aspiration precautions. Physical Exam Vital Signs: Temp Pulse Resp BP Pulse Ox 98.4 F 91 16 169/58 H 91 L 03/10/20 16:52 03/10/20 16:52 03/10/20 16:52 03/10/20 16:52 03/10/20 16:52 Intake & Output 03/11/20 03/12/20 03/13/20 06:59 06:59 06:59 Intake Total 0 Balance 0 General appearance: PRESENT: no acute distress, thin, well-developed, well- nourished, other - Frail, chronically ill-appearing Head exam: PRESENT: atraumatic, normocephalic Eye exam: PRESENT: conjunctiva pink, EOMI, PERRLA. ABSENT: scleral icterus Mouth exam: PRESENT: moist, tongue midline Teeth exam: PRESENT: poor dentation Respiratory exam: PRESENT: clear to auscultation gwendolyn, other - room air. ABSENT: rales, rhonchi, wheezes Cardiovascular exam: PRESENT: RRR. ABSENT: diastolic murmur, rubs, systolic murmur Pulses: PRESENT: normal dorsalis pedis pul Vascular exam: PRESENT: normal capillary refill GI/Abdominal exam: PRESENT: normal bowel sounds, soft. ABSENT: distended, guarding, mass, organolmegaly, rebound, tenderness Rectal exam: PRESENT: deferred Extremities exam: ABSENT: calf tenderness, clubbing, pedal edema Neurological exam: PRESENT: alert, awake, oriented to person, oriented to place, CN II-XII grossly intact, other - to baseline. ABSENT: motor sensory deficit Psychiatric exam: PRESENT: appropriate affect, normal mood. ABSENT: homicidal ideation, suicidal ideation Skin exam: PRESENT: dry, intact, warm. ABSENT: cyanosis, rash Results Laboratory Results: WBC 7.9 10^3/uL (4.0-10.5) 03/10/20 07:20 RBC 4.13 10^6/uL (3.72-5.28) 03/10/20 07:20 Hgb 12.6 g/dL (12.0-15.5) 03/10/20 07:20 Hct 37.3 % (36.0-47.0) 03/10/20 07:20 MCV 90 fl (80-97) 03/10/20 07:20 MCH 30.5 pg (27.0-33.4) 03/10/20 07:20 MCHC 33.7 g/dL (32.0-36.0) 03/10/20 07:20 RDW 13.7 % (11.5-14.0) 03/10/20 07:20 Plt Count 148 10^3/uL (150-450) L 03/10/20 07:20 Lymph % (Auto) 39.3 % (13-45) 03/07/20 20:30 [place] % (Auto) 2.6 % (3-13) L 03/07/20 20:30 Eos % (Auto) 1.7 % (0-6) 03/07/20 20:30 Baso % (Auto) 0.4 % (0-2) 03/07/20 20:30 Absolute Neuts (auto) 4.4 10^3/uL (1.7-8.2) 03/07/20 20:30 Absolute Lymphs (auto) 3.1 10^3/uL (0.5-4.7) 03/07/20 20:30 Absolute Monos (auto) 0.2 10^3/uL (0.1-1.4) 03/07/20 20:30 Absolute Eos (auto) 0.1 10^3/uL (0.0-0.6) 03/07/20 20:30 Absolute Basos (auto) 0.0 10^3/uL (0.0-0.2) 03/07/20 20:30 Seg Neutrophils % 56.0 % (42-78) 03/07/20 20:30 PT 28.5 SEC (11.4-15.4) H 03/10/20 07:20 INR 2.62 03/10/20 07:20 Carbonic Acid 1.43 mmol/L (1.05-1.35) H 03/07/20 20:28 HCO3/H2CO3 Ratio 18:1 03/07/20 20:28 ABG pH 7.37 (7.35-7.45) 03/07/20 20:28 ABG pCO2 47.5 mmHg (35-45) H 03/07/20 20:28 ABG pO2 89.1 mmHg (80-100) 03/07/20 20:28 ABG HCO3 26.7 mmol/L (20-24) H 03/07/20 20:28 ABG Total CO2 28.1 mmol/L (21-25) H 03/07/20 20:28 ABG O2 Saturation 96.5 % (94-98) 03/07/20 20:28 ABG Base Excess 0.8 mmol/L 03/07/20 20:28 FiO2 15 03/07/20 20:28 Sodium 134.8 mmol/L (137-145) L 03/10/20 07:20 Potassium 3.8 mmol/L (3.6-5.0) 03/10/20 07:20 Chloride 102 mmol/L (98-107) 03/10/20 07:20 Carbon Dioxide 24 mmol/L (22-30) 03/10/20 07:20 Anion Gap 9 (5-19) 03/10/20 07:20 BUN 12 mg/dL (7-20) 03/10/20 07:20 Creatinine 0.50 mg/dL (0.52-1.25) L 03/10/20 07:20 Est GFR ( Amer) > 60 (>60) 03/10/20 07:20 Est GFR (Non-Af Amer) Cancelled 03/10/20 05:36 Est GFR (MDRD) Non-Af > 60 (>60) 03/10/20 07:20 Glucose 132 mg/dL (75-110) H 03/10/20 07:20 POC Glucose 106 mg/dL (70-110) 03/10/20 15:09 Hemoglobin A1c % 8.1 % (4.7-6.0) H 03/09/20 06:32 Lactic Acid 2.5 mmol/L (0.7-2.1) H 03/08/20 13:57 Calcium 8.7 mg/dL (8.4-10.2) 03/10/20 07:20 Magnesium 1.4 mg/dL (1.6-2.3) L 03/09/20 06:32 Total Bilirubin 0.5 mg/dL (0.2-1.3) 03/07/20 22:55 Direct Bilirubin 0.1 mg/dL (0.0-0.4) 03/07/20 22:55 Neonat Total Bilirubin Not Reportable 03/07/20 22:55 Neonat Direct Bilirubin Not Reportable 03/07/20 22:55 Neonat Indirect Bili Not Reportable 03/07/20 22:55 AST 37 U/L (14-36) H 03/07/20 22:55 ALT 20 U/L (<35) 03/07/20 22:55 Alkaline Phosphatase 111 U/L (38-126) 03/07/20 22:55 Troponin I < 0.012 ng/mL 03/07/20 22:55 NT-Pro-B Natriuret Pep 111 pg/mL (<450) 03/07/20 22:55 Total Protein 7.6 g/dL (6.3-8.2) 03/07/20 22:55 Albumin 4.1 g/dL (3.5-5.0) 03/07/20 22:55 EGFR Cancelled 03/10/20 05:36 Urine Color YELLOW 03/09/20 01:40 Urine Appearance CLEAR 03/09/20 01:40 Urine pH 6.0 (5.0-9.0) 03/09/20 01:40 Ur Specific [place] 1.016 03/09/20 01:40 Urine Protein NEGATIVE mg/dL (NEGATIVE) 03/09/20 01:40 Urine Glucose (UA) NEGATIVE mg/dL (NEGATIVE) 03/09/20 01:40 Urine Ketones 20 mg/dL (NEGATIVE) H 03/09/20 01:40 Urine Blood LARGE (NEGATIVE) H 03/09/20 01:40 Urine Nitrite NEGATIVE (NEGATIVE) 03/09/20 01:40 Urine Nitrite (Reflex) NEGATIVE (NEGATIVE) 03/07/20 22:33 Urine Bilirubin NEGATIVE (NEGATIVE) 03/09/20 01:40 Urine Urobilinogen NEGATIVE mg/dL (<2.0) 03/09/20 01:40 Ur Leukocyte Esterase TRACE (NEGATIVE) H 03/09/20 01:40 Leukocyte Esterase Rfl NEGATIVE (NEGATIVE) 03/07/20 22:33 Urine WBC (Auto) 9 /HPF 03/09/20 01:40 Urine RBC (Auto) 134 /HPF 03/09/20 01:40 Urine WBC (Reflex) 1 /HPF 03/07/20 22:33 Squamous Epi Cells Auto <1 /HPF 03/07/20 22:33 Urine Mucus (Auto) RARE /LPF 03/09/20 01:40 Urine Ascorbic Acid NEGATIVE (NEGATIVE) 03/09/20 01:40 03/07/20 03/07/20 20:30 22:55 Troponin I Cancelled < 0.012 NT-Pro-B Natriuret Pep Cancelled 111 Impressions: Chest X-Ray 03/07/20 20:04 IMPRESSION: No acute disease. copyright 2011 [employer]- All Rights Reserved Head CT 03/07/20 20:05 IMPRESSION: No acute intracranial process is identified. Age-related involutional changes are identified. Presumed old small vessel ischemic changes are seen predominantly in a periventricular distribution. Abdomen/Pelvis CT 03/07/20 23:38 IMPRESSION: Artifact from the patient's arms. Imaging is degraded by patient motion, with resultant artifact. The best possible images were obtained. Airspace consolidation right lower lobe, with associated diffuse interstitial and fluffy alveolar space changes bilaterally, likely infectious inflammatory. No acute intra-abdominal process is identified. Imaging is degraded significantly by motion. Chest CT 03/08/20 00:00 IMPRESSION: 1. Patchy bilateral consolidation and ground-glass attenuation, right greater than left, compatible with multifocal pneumonia. Trace effusions. 2. Coronary atherosclerosis. Plan Plan of Treatment: Patient is discharged home in stable condition. She is advised to follow-up with her primary care provider within 1 week. Complete course of antibiotic therapy. Recommend a pured foods with liquids and crushed pills diet with aspiration precautions; eat sitting upright, small sips, no straws, with assistance. Take your other medications as prescribed. Return to emergency department as needed for concerning symptoms. Time Spent: Greater than 30 Minutes Stroke Is this a Stroke Patient?: No Stroke Pt being discharged on Anti-thrombolytic therapy?: Yes Stroke Pt being discharged on Anti-coagulation therapy?: Yes Acute Heart Failure - Is this a Heart Failure Patient?: No
== END 2020-03-10 19:41 | disposition home health service (06) | DRG 177 ==
LOC: ER 19:52 → EH 03-08 00:22 → 4S 03-08 01:15
PROVIDERS: ADMIT Emergency Medicine; ATTEND Registered Nurse
DX: J69.0 Pneumonitis due to inhalation of food and vomit (principal); J96.01 Acute respiratory failure with hypoxia; R47.01 Aphasia; I69.351 Hemiplegia and hemiparesis following cerebral infarction affecting right dominant side; E11.9 Type 2 diabetes mellitus without complications; E78.5 Hyperlipidemia, unspecified; I10 Essential (primary) hypertension; R74.0 Nonspecific elevation of levels of transaminase and lactic acid dehydrogenase [LDH]; F01.50 Vascular dementia, unspecified severity, without behavioral disturbance, psychotic disturbance, mood disturbance, and anxiety; E78.00 Pure hypercholesterolemia, unspecified; T17.908A Unspecified foreign body in respiratory tract, part unspecified causing other injury, initial encounter; Z66 Do not resuscitate; Z79.899 Other long term (current) drug therapy; Z79.4 Long term (current) use of insulin; Z79.01 Long term (current) use of anticoagulants; Z82.3 Family history of stroke; Z83.3 Family history of diabetes mellitus; Z82.49 Family history of ischemic heart disease and other diseases of the circulatory system
CPT/HCPCS: 36415; 36600; 51702; 70450; 71045; 71250; 74177; 80048; 80053; 81001; 82803; 82962; 83036; 83605; 83735; 83880; 84484; 85025; 85027; 85610; 87040; 94640; 96360; 96361; 99285; J0295; J0360; J1815; J3490; J7030; J7120; J7614

== ENCOUNTER 2020-09-27 08:31 | Observation (INO) | payer MEDICARE ==
--- NOTE | 2020-09-27 10:17 | RADIOLOGY REPORT (SQ) ---
EXAM DESCRIPTION: CHEST SINGLE VIEW IMAGES COMPLETED DATE/TIME: 09/27/2020 8:57 am REASON FOR STUDY: choking/cough COMPARISON: 03/07/2020 EXAM PARAMETERS: NUMBER OF VIEWS: One view. TECHNIQUE: Single frontal radiographic view of the chest acquired. RADIATION DOSE: NA LIMITATIONS: None. FINDINGS: LUNGS AND PLEURA: No opacities, masses or pneumothorax. No pleural effusion. MEDIASTINUM AND HILAR STRUCTURES: No masses. Contour normal. HEART AND VASCULAR STRUCTURES: Heart normal in size. Normal vasculature. BONES: No acute findings. HARDWARE: None in the chest. OTHER: No other significant finding. IMPRESSION: NO ACUTE RADIOGRAPHIC FINDING IN THE CHEST. TECHNICAL DOCUMENTATION: JOB ID: [id number] 2010 [employer]- All Rights Reserved Reading location - IP/workstation name: [email or web address]
[2020-09-27] MEDS: NORMAL SALINE 1000 ML 1,000 ML IV ONE ×2 (10:20→10:25)
--- NOTE | 2020-09-27 10:29 | RADIOLOGY REPORT (SQ) ---
EXAM DESCRIPTION: CT HEAD WITHOUT IMAGES COMPLETED DATE/TIME: 09/27/2020 9:06 am REASON FOR STUDY: cant swallow. COMPARISON: 03/07/2020 TECHNIQUE: Axial images acquired through the brain without intravenous contrast. Images reviewed wi th bone, brain and subdural windows. Additional sagittal and coronal reconstructions were generated. Images stored on PACS. All CT scanners at this facility use dose modulation, iterative reconstruction, and/or weight based d osing when appropriate to reduce radiation dose to as low as reasonably achievable (ALARA). [facility]: Dose Right [facility]: CareDose [facility]: Dose Right [facility]: Teradose 4D [facility]: Smart 6Rooms RADIATION DOSE: CT Rad equipment meets quality standard of care and radiation dose reduction techniq ues were employed. CTDIvol: 53.2 mGy. DLP: 1070 mGy-cm. mGy. LIMITATIONS: None. FINDINGS: VENTRICLES: Normal size and contour. CEREBRUM: No masses. No hemorrhage. No midline shift. No evidence for acute infarction. Normal gra y-white matter differentiation. Moderate patchy periventricular, deep, and subcortical white matter hypodense attenuation consistent with moderate chronic small vessel ischemic change. There is intrac ranial atherosclerosis. CEREBELLUM: No masses. No hemorrhage. No alteration of density. No evidence for acute infarction. EXTRAAXIAL SPACES: No fluid collections. No masses. ORBITS AND GLOBE: No intra- or extraconal masses. Normal contour of globe without masses. CALVARIUM: No fracture. PARANASAL SINUSES: No fluid or mucosal thickening. SOFT TISSUES: No mass or hematoma. OTHER: No other significant finding. IMPRESSION: 1. No acute intracranial hemorrhage, mass, or evidence of acute territorial infarct. 2. Moderate chronic small vessel ischemic change and intracranial atherosclerosis, stable. EVIDENCE OF ACUTE STROKE: NO. COMMENT: Quality ID # [id number]: Final reports with documentation of one or more dose reduction techniques (e.g., Automated exposure control, adjustment of the mA and/or kV according to patient size, use of iterative reconstruction technique) TECHNICAL DOCUMENTATION: JOB ID: [id number] 2010 [employer]- All Rights Reserved Reading location - IP/workstation name: [email or web address]
[2020-09-27 10:32] LABS: ABSOLUTE EOSINOPHILS # (AUTO) 0.1 10^3/uL (0.0-0.6); ABSOLUTE LYMPHOCYTES (AUTO) 1.5 10^3/uL (0.5-4.7); ABSOLUTE MONOCYTES (AUTO) 0.2 10^3/uL (0.1-1.4); ABSOLUTE NEUT (AUTO) 4.9 10^3/uL (1.7-8.2); BASOPHILS % (AUTO) 0.7 % (0-2); EOSINOPHILS % (AUTO) 1.4 % (0-6); HEMATOCRIT 40.1 % (36.0-47.0); HEMOGLOBIN 13.2 g/dL (12.0-15.5); LYMPHOCYTES % (AUTO) 22.4 % (13-45); MEAN CORPUSCULAR HEMOGLOBIN 30.5 pg (27.0-33.4); MEAN CORPUSCULAR VOLUME 93 fl (80-97); MONOCYTES % (AUTO) 3.6 % (3-13); PLATELET COUNT 270 10^3/uL (150-450); RED BLOOD COUNT 4.33 10^6/uL (3.72-5.28); RED CELL DISTRIBUTION WIDTH 13.7 % (11.5-14.0); SEGMENTED NEUTROPHILS % (AUTO) 71.9 % (42-78); TOTAL CELLS COUNTED % (AUTO) 100 %; WHITE BLOOD COUNT 6.8 10^3/uL (4.0-10.5)
[2020-09-27 10:50] LABS: ALBUMIN 4.1 g/dL (3.5-5.0); ALKALINE PHOSPHATASE 79 U/L (38-126); ANION GAP 8 (5-19); ASPARTATE AMINO TRANSFERASE 21 U/L (14-36); BILIRUBIN,DIRECT 0.2 mg/dL (0.0-0.4); BILIRUBIN,TOTAL 0.5 mg/dL (0.2-1.3); BLOOD UREA NITROGEN 26 mg/dL (7-20); CALCIUM 9.8 mg/dL (8.4-10.2); CARBON DIOXIDE 29 mmol/L (22-30); CHLORIDE 109 mmol/L (98-107); CREATINE KINASE 32 U/L (30-135); GLUCOSE 137 mg/dL (75-110); POTASSIUM 3.9 mmol/L (3.6-5.0); TOTAL PROTEIN 7.8 g/dL (6.3-8.2)
[2020-09-27 11:04] LABS: APPEARANCE,URINE CLEAR; BILIRUBIN,URINE NEGATIVE (NEGATIVE); COLOR,URINE YELLOW; GLUCOSE, URINE NEGATIVE (NEGATIVE); KETONES,URINE 80 mg/dL (NEGATIVE); PROTEIN,URINE 30 mg/dL (NEGATIVE); UROBILINOGEN,URINE NEGATIVE mg/dL (<2.0)
--- NOTE | 2020-09-27 11:11 | ER Document Report ---
ED General - General Chief Complaint: Difficulty Swallowing Stated Complaint: TROUBLE SWALLOWING Time Seen by Provider: 09/27/20 09:03 Primary Care Provider: HARIKA BENITEZ MD [Primary Care Provider] - Follow up as needed Mode of Arrival: Medic Information source: Patient, Relative - TRAVEL OUTSIDE OF THE [place] IN LAST 30 DAYS: No - HPI Notes: Patient is brought in to the emergency department by EMS. is in the room and gives history as patient is nonverbal. states that the patient has had multiple strokes which is of left her bedridden. He states normally the patient can converse but for the last week patient has been unable to talk. also states for several days patient cannot swallow food. He states the patient is coughing or gagging when eating or drinking or sometimes just lets the food or drink run out of her mouth. No known recent infections or trauma. Patient has had no complaints of pain per the . There is been no known cough or respiratory symptoms. 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 Patient can contribute to history with nonverbal communication. She denies any current symptoms the best I can ascertain. - Related Data Allergies/Adverse Reactions: No Known Allergies Allergy (Verified 09/27/20 08:48) Past Medical History - General Information source: Patient, Relative - Social History Smoking Status: Never Smoker Frequency of alcohol use: None Drug Abuse: None Family History: CVA, DM, Hypertension - Past Medical History Cardiac Medical History: Reports: Hx Hypercholesterolemia, Hx Hypertension Denies: Hx Congestive Heart Failure, Hx Heart Attack, Hx Pulmonary Embolism Pulmonary Medical History: Reports: Hx Bronchitis, Hx Pneumonia Denies: Hx Asthma, Hx COPD Neurological Medical History: Reports: Hx Cerebrovascular Accident. Denies: Hx Seizures Endocrine Medical History: Reports: Hx Diabetes Mellitus Type 2. Denies: Hx Diabetes Mellitus Type 1, Hx Hyperthyroidism, Hx Hypothyroidism Renal/ Medical History: Denies: Hx Peritoneal Dialysis GI Medical History: Reports: Hx Gastroesophageal Reflux Disease. Denies: Hx Cirrhosis, Hx Hepatitis Musculoskeletal Medical History: Denies Hx Arthritis, Denies Hx Gout Skin Medical History: Denies Hx Eczema, Denies Hx Psoriasis Psychiatric Medical History: Denies: Hx Depression Infectious Medical History: Denies: Hx Hepatitis Past Surgical History: Reports: Hx Hysterectomy. Denies: Hx Pacemaker - Immunizations Hx Diphtheria, Pertussis, Tetanus Vaccination: No Hx Pneumococcal Vaccination: 07/21/15 Review of Systems - Review of Systems Constitutional: Weakness. denies: Recent illness Respiratory: Cough. denies: Wheezing Gastrointestinal: denies: Diarrhea, Vomiting -: Yes All other systems reviewed and negative Physical Exam - Vital signs Vitals: Temp Pulse Resp BP Pulse Ox 97.5 F 51 L 18 153/60 H 100 09/27/20 11:12 09/27/20 11:12 09/27/20 11:12 09/27/20 11:12 09/27/20 11:12 Interpretation: Normal - General General appearance: Alert In distress: None - HEENT Head: Normocephalic, Atraumatic Eyes: Normal Pupils: PERRL - Respiratory Respiratory status: No respiratory distress Chest status: Nontender Breath sounds: Normal Chest palpation: Normal - Cardiovascular Rhythm: Regular Heart sounds: Normal auscultation Murmur: No - Abdominal Inspection: Normal Distension: No distension Bowel sounds: Normal Tenderness: Nontender Organomegaly: No organomegaly - Back Back: Normal, Nontender - Extremities General upper extremity: Normal inspection, Nontender, Normal color, Normal temperature General lower extremity: Normal inspection, Nontender, Normal color, Normal temperature. 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 No: Involuntary movements Sensory: Normal - Psychological Associated symptoms: Normal affect, Normal mood - Skin Skin Temperature: Warm Skin Moisture: Dry Skin Color: Other - has stage 1/2 ulceration to sacral area. so signs infection Course - Re-evaluation Re-evalutation: 09/27/20 11:32 Patient is brought in by for new onset of difficulty speaking and swallowing. It is difficult to get a history from the patient as she has expressive aphasia. Apparently the symptoms been going on for around 1 week. The patient shows signs of dehydration on laboratory values. Physical exam has evidence of stage I and stage II decubiti in the sacral area but they are not acutely infected. Other than the neurological exam the exam is not significantly remarkable. Vital signs are relatively stable and patient appears nontoxic. Head CT shows no evidence of acute stroke at this time. I have discu ssed the case with the hospitalist who has agreed to see the patient in consultation. - Vital Signs Vital signs: Temp Pulse Resp BP Pulse Ox 97.5 F 51 L 18 153/60 H 100 09/27/20 11:12 09/27/20 11:12 09/27/20 11:12 09/27/20 11:12 09/27/20 11:12 - Laboratory Result Diagrams: 09/27/20 10:20 09/27/20 10:20 Laboratory results interpreted by me: 09/27/20 09/27/20 10:20 10:40 Sodium 146.0 H Chloride 109 H BUN 26 H Glucose 137 H Urine Protein 30 H Urine Ketones 80 H Urine Ascorbic Acid 40 H - Diagnostic Test Radiology Studies Status: Radiology Report Reviewed Radiology results interpreted by me: 09/27/20 11:34 I did not interpet rad results - EKG Interpretation by Me EKG shows normal: Sinus rhythm Rate: Bradycardia - 55 Rhythm: NSR [place]/QRS: No: Right axis deviation, Left axis deviation Discharge - Discharge Clinical Impression: Expressive aphasia Trouble swallowing Qualifiers: Dysphagia type: unspecified Qualified Code(s): R13.10 - Dysphagia, unspecified Condition: Serious Disposition: ADMITTED INPATIENT Admitting Provider: Julianna (Hospitalist) Unit Admitted: Medical Floor Referrals: HARIKA BENITEZ MD [Primary Care Provider] - Follow up as needed
[2020-09-27] MEDS ORDERED: GLUCAGON,HUMAN RECOMB 1 MG INJ SUBCUT PRN (12:21)
[2020-09-27] MEDS ORDERED: DEXTROSE 50%-WATER 25 GM/50 ML DISP.SYRIN IV PRN ×2 (12:21)
[2020-09-27] MEDS ORDERED: DEXTROSE 5%-1/2 NORMAL SALINE 1,000 ML IV PRN (12:21)
[2020-09-27] MEDS ORDERED: DEXTROSE 40% GEL 15 GM TUBE PO PRN ×2 (12:21)
--- NOTE | 2020-09-27 15:28 | PDOC H&P ---
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 Her , who is her primary caregiver, says that she will not swallow anything. Apparently she has been doing this for 3 or 4 days. When she was sent home from here back in February, she was sent on a pured diet nectar thick liquids. She did that for about 3 weeks, then her started giving her more regular foods chopped up in the very small bits, and he says she has been tolerating that without trouble. He said that he thinks that she cannot swallow anything right now because he will put food in her mouth and she will spit it out. She does the same thing with liquids. EMS says they gave her orange juice and she swallowed it, but her said she spit it out when they were not looking. He told me that she is a DNR and that in her advanced directives sometime ago she put that she would not want a feeding tube. Past Medical History Cardiac Medical History: Reports: Hyperlipidema, Hypertension Denies: Congestive Heart Failure, Myocardial Infarction, Pulmonary Embolism Pulmonary Medical History: Reports: Bronchitis, Pneumonia Denies: Asthma, Chronic Obstructive Pulmonary Disease (COPD) Neurological Medical History: Denies: Seizures Endocrine Medical History: Reports: Diabetes Mellitus Type 2 Denies: Diabetes Mellitus Type 1, Hyperthyroidism, Hypothyroidism GI Medical History: Reports: Gastroesophageal Reflux Disease Denies: Cirrhosis, Hepatitis Musculoskeltal Medical History: Denies: Arthritis, Gout Skin Medical History: Denies: Eczema, Psoriasis Psychiatric Medical History: Denies: Depression Hematology: Reports: Anemia Denies: Bleeding Tendencies Past Surgical History Past Surgical History: Reports: Hysterectomy Denies: Pacemaker Social History Smoking Status: Never Smoker Frequency of Alcohol Use: None Hx Recreational Drug Use: No Drugs: None Hx Prescription Drug Abuse: No - Advance Directive Resuscitation Status: Do Not Resuscitate Family History Family History: CVA, DM, Hypertension Parental Family History Reviewed: Yes Children Family History Reviewed: Yes Sibling(s) Family History Reviewed.: Yes Medication/Allergy Home Medications: Ramipril [Altace 10 mg Capsule] 10 mg PO Q12 capsule 01/20/19 Insulin Detemir [Levemir] 10 unit SQ DAILY 02/21/19 Metformin HCl [Glucophage] 500 mg PO BID 03/08/20 Apixaban [Eliquis 5 mg Tablet] 5 mg PO BID 09/27/20 Allergies/Adverse Reactions: No Known Allergies Allergy (Verified 09/27/20 08:48) Review of Systems ROS unobtainable: Due to mental status Physical Exam Vital Signs: Temp Pulse Resp BP Pulse Ox 97.5 F 51 L 18 153/60 H 100 09/27/20 11:12 09/27/20 11:12 09/27/20 11:12 09/27/20 11:12 09/27/20 11:12 Intake & Output 09/26/20 09/27/20 09/28/20 06:59 06:59 06:59 Intake Total 1000 Balance 1000 Weight 63.503 kg General appearance: PRESENT: no acute distress, cooperative, disheveled Head exam: PRESENT: atraumatic, normocephalic Eye exam: PRESENT: conjunctival injection, other - Right eye is chronically rotated to the right. ABSENT: nystagmus Ear exam: PRESENT: normal external ear exam Mouth exam: PRESENT: dry mucosa Teeth exam: PRESENT: poor dentation Neck exam: PRESENT: full ROM. ABSENT: carotid bruit, JVD, lymphadenopathy, meningismus, tenderness, thyromegaly Respiratory exam: PRESENT: clear to auscultation gwendolyn, symmetrical, unlabored, other - She has referred upper airway sounds when she coughs. ABSENT: accessory muscle use, chest wall tenderness, crackles, prolonged expiratory phas, rhonchi, tachypnea, wheezes Cardiovascular exam: PRESENT: bradycardia, +S1, +S2 Pulses: PRESENT: normal carotid pulses Vascular exam: PRESENT: normal capillary refill GI/Abdominal exam: PRESENT: normal bowel sounds, soft. ABSENT: distended, guarding, rebound, tenderness Extremities exam: ABSENT: clubbing, pedal edema Musculoskeletal exam: PRESENT: normal inspection. ABSENT: deformity Neurological exam: PRESENT: awake, aphasic. ABSENT: oriented to person, oriented to place, oriented to time, oriented to situation Psychiatric exam: PRESENT: flat affect Skin exam: PRESENT: dry, warm, other - Pressure ulcers on her sacrum and pelvis Results Laboratory Results: 09/27/20 10:20 09/27/20 10:20 09/27/20 09/27/20 12 10:20 10:20 10:40 WBC 6.8 RBC 4.33 Hgb 13.2 Hct 40.1 MCV 93 MCH 30.5 MCHC 33.0 RDW 13.7 Plt Count 270 Seg Neutrophils % 71.9 Sodium 146.0 H Potassium 3.9 Chloride 109 H Carbon Dioxide 29 Anion Gap 8 BUN 26 H Creatinine 0.55 Est GFR ( Amer) > 60 Glucose 137 H Calcium 9.8 Total Bilirubin 0.5 AST 21 Alkaline Phosphatase 79 Total Protein 7.8 Albumin 4.1 Urine Color YELLOW Urine Appearance CLEAR Urine pH 5.0 Ur Specific [place] 1.030 Urine Protein 30 H Urine Glucose (UA) NEGATIVE Urine Ketones 80 H Urine Blood NEGATIVE Urine RBC (Auto) 1 09/27/20 09/27/20 10:20 10:20 Creatine Kinase 32 Troponin I < 0.012 Impressions: Head CT 09/27/20 09:14 IMPRESSION: 1. No acute intracranial hemorrhage, mass, or evidence of acute territorial infarct. 2. Moderate chronic small vessel ischemic change and intracranial atherosclerosis, stable. EVIDENCE OF ACUTE STROKE: NO. Chest X-Ray 09/27/20 09:16 IMPRESSION: NO ACUTE RADIOGRAPHIC FINDING IN THE CHEST. Assessment and Plan - Diagnosis (1) Trouble swallowing Qualifiers: Dysphagia type: unspecified Qualified Code(s): R13.10 - Dysphagia, unspecified Is this a current diagnosis for this admission?: Yes (2) Functional quadriplegia Is this a current diagnosis for this admission?: Yes (3) Expressive aphasia Is this a current diagnosis for this admission?: Yes (4) Diabetes mellitus type 2 in nonobese Is this a current diagnosis for this admission?: Yes (5) History of CVA (cerebrovascular accident) Is this a current diagnosis for this admission?: Yes - Plan Summary Summary: It is difficult to discern with this patient if she cannot swallow or if she just does not want to. Given her history of multiple prior ischemic strokes and really not much of a change in her overall condition, I do not think repeat imaging of the brain is going to give us very much information or change our management at this point. We will put her on some IV fluids and have a speech therapy evaluation. As previously noted, her said that she would not have wanted a feeding tube, but if it comes to that, he said he would have to talk it over with his son first. I encouraged him to honor her wishes, noting her chronic condition and overall deterioration. - Time Time Spent with patient: 35 or more minutes Anticipated Discharge Disposition: Unknown Anticipated Discharge Timeframe: Unknown
[2020-09-27] MEDS ORDERED: KETOROLAC TROMETHAMINE INJ/PF 30 MG/1 ML SDV IV ONE (16:30)
--- NOTE | 2020-09-27 17:43 | EKG REPORT ---
SEVERITY:- ABNORMAL ECG - SINUS RHYTHM MULTIPLE ATRIAL PREMATURE COMPLEXES : Confirmed by: George Suarez 27-Sep-2020 17:43:00
[2020-09-27] MEDS: INSULIN LISPRO 100 UNIT/ML 3 ML VIAL SUBCUT SCH (18:09)
[2020-09-27] MEDS: ENOXAPARIN SODIUM INJ 80 MG/0.8 ML DISP.SYRIN SUBCUT SCH (21:55)
[2020-09-28] MEDS: INSULIN LISPRO 100 UNIT/ML 3 ML VIAL SUBCUT SCH ×3 (00:56→11:38)
[2020-09-28 08:30] LABS: ANION GAP 7 (5-19); BLOOD UREA NITROGEN 21 mg/dL (7-20); CALCIUM 9.2 mg/dL (8.4-10.2); CARBON DIOXIDE 29 mmol/L (22-30); CHLORIDE 108 mmol/L (98-107); GLUCOSE 127 mg/dL (75-110)
[2020-09-28 08:34] LABS: HEMOGLOBIN 13.8 g/dL (12.0-15.5); MEAN CORPUSCULAR HEMOGLOBIN 30.5 pg (27.0-33.4); MEAN CORPUSCULAR VOLUME 93 fl (80-97); PLATELET COUNT 201 10^3/uL (150-450); RED BLOOD COUNT 4.53 10^6/uL (3.72-5.28); RED CELL DISTRIBUTION WIDTH 13.3 % (11.5-14.0)
[2020-09-28] MEDS: ENOXAPARIN SODIUM INJ 80 MG/0.8 ML DISP.SYRIN SUBCUT SCH (13:09)
[2020-09-28 16:55] VITALS: BP 156/66
--- NOTE | 2020-09-28 17:36 | PDOC DISCHARGE SUMMARY ---
Impression - Admit/DC Date/PCP Admission Date/Primary Care Provider: 09/27/20 11:50 HARIKA BENITEZ MD Discharge Date: 09/28/20 - Discharge Diagnosis (1) Trouble swallowing Is this a current diagnosis for this admission?: Yes (2) Functional quadriplegia Is this a current diagnosis for this admission?: Yes (3) Expressive aphasia Is this a current diagnosis for this admission?: Yes (4) Diabetes mellitus type 2 in nonobese Is this a current diagnosis for this admission?: Yes (5) History of CVA (cerebrovascular accident) Is this a current diagnosis for this admission?: Yes (6) Pressure ulcer of coccygeal region, stage 1 Is this a current diagnosis for this admission?: Yes - Assessment Summary: It is difficult to discern with this patient if she cannot swallow or if she just does not want to. Given her history of multiple prior ischemic strokes and really not much of a change in her overall condition, I do not think repeat imaging of the brain is going to give us very much information or change our management at this point. We will put her on some IV fluids and have a speech therapy evaluation. As previously noted, her said that she would not have wanted a feeding tube, but if it comes to that, he said he would have to talk it over with his son first. I encouraged him to honor her wishes, noting her chronic condition and overall deterioration. - Additional Information Resuscitation Status: Do Not Resuscitate Discharge Diet: Other (Comments) Discharge Activity: Bedrest Referrals: HARIKA BENITEZ MD [Primary Care Provider] - 10/06/20 11:30 am Home Medications: Ramipril [Altace 10 mg Capsule] 10 mg PO Q12 capsule 01/20/19 Insulin Detemir [Levemir] 10 unit SQ DAILY 02/21/19 Metformin HCl [Glucophage] 500 mg PO BID 03/08/20 Apixaban [Eliquis 5 mg Tablet] 5 mg PO BID 09/27/20 History of Present Illiness History of Present Illness: ELÍAS ANDRADE is a 74 year old female with multiple severe medical comorbidities including multiple prior ischemic strokes, diabetes mellitus at one time insulin-dependent, moderate pulmonary hypertension, functional quadriplegia, dysphagia, expressive aphasia, and chronically anticoagulated due to recurrent ischemic strokes despite being on dual antiplatelet therapy, who presents via EMS for what was described as dysphagia. Her , who is her primary caregiver, says that she will not swallow anything. Apparently she has been doing this for 3 or 4 days. When she was sent home from here back in February, she was sent on a pured diet nectar thick liquids. She did that for about 3 weeks, then her started giving her more regular foods chopped up in the very small bits, and he says she has been tolerating that without trouble. He said that he thinks that she cannot swallow anything right now because he will put food in her mouth and she will spit it out. She does the same thing with liquids. EMS says they gave her orange juice and she swallowed it, but her said she spit it out when they were not looking. He told me that she is a DNR and that in her advanced directives sometime ago she put that she would not want a feeding tube. Hospital Course Hospital Course: We gave her some fluids and she seemed to get a little more responsive. Speech therapy evaluated her and made the same dietary recommendation that she has had for several months. I suspect that the patient simply does not want to eat very much. I expressed my concern to her that this is likely to be an ongoing problem for this patient. I believe that she is in a state of slow decline at this point. I encouraged him to try to get her to take some thickened fluids and to feed her what pured foods she will take. He verbalizes understanding. We arranged transport for her to get her home. She was discharged in stable condition. Her overall clinical condition over the past several months is essentially unchanged. She had what appeared to be developing pressure ulcers on her backside that were present on admission. Physical Exam Vital Signs: Temp Pulse Resp BP Pulse Ox 97.5 F 62 14 156/66 H 99 09/28/20 14:00 09/28/20 15:42 09/28/20 14:00 09/28/20 15:42 09/28/20 15:42 Intake & Output 09/27/20 09/28/20 09/29/20 06:59 06:59 06:59 Intake Total 1000 1000 Balance 1000 1000 Weight 63.4 kg General appearance: PRESENT: no acute distress, cooperative, disheveled Respiratory exam: PRESENT: clear to auscultation gwendolyn, symmetrical, unlabored, other - She has referred upper airway sounds when she coughs. ABSENT: accessory muscle use, chest wall tenderness, crackles, prolonged expiratory phase, rhonchi, tachypnea, wheezes Cardiovascular exam: PRESENT: bradycardia, +S1, +S2 Pulses: PRESENT: normal carotid pulses Vascular exam: PRESENT: normal capillary refill GI/Abdominal exam: PRESENT: normal bowel sounds, soft. ABSENT: distended, guarding, rebound, tenderness Extremities exam: ABSENT: clubbing, pedal edema Musculoskeletal exam: PRESENT: normal inspection. ABSENT: deformity Neurological exam: PRESENT: awake, aphasic. ABSENT: oriented to person, oriented to place, oriented to time, oriented to situation Psychiatric exam: PRESENT: flat affect Skin exam: PRESENT: dry, warm, other - Pressure ulcers on her sacrum and pelvis Results Laboratory Results: WBC 5.0 10^3/uL (4.0-10.5) 09/28/20 07:33 RBC 4.53 10^6/uL (3.72-5.28) 09/28/20 07:33 Hgb 13.8 g/dL (12.0-15.5) 09/28/20 07:33 Hct 42.0 % (36.0-47.0) 09/28/20 07:33 MCV 93 fl (80-97) 09/28/20 07:33 MCH 30.5 pg (27.0-33.4) 09/28/20 07:33 MCHC 33.0 g/dL (32.0-36.0) 09/28/20 07:33 RDW 13.3 % (11.5-14.0) 09/28/20 07:33 Plt Count 201 10^3/uL (150-450) 09/28/20 07:33 Lymph % (Auto) 22.4 % (13-45) 09/27/20 10:20 [place] % (Auto) 3.6 % (3-13) 09/27/20 10:20 Eos % (Auto) 1.4 % (0-6) 09/27/20 10:20 Baso % (Auto) 0.7 % (0-2) 09/27/20 10:20 Absolute Neuts (auto) 4.9 10^3/uL (1.7-8.2) 09/27/20 10:20 Absolute Lymphs (auto) 1.5 10^3/uL (0.5-4.7) 09/27/20 10:20 Absolute Monos (auto) 0.2 10^3/uL (0.1-1.4) 09/27/20 10:20 Absolute Eos (auto) 0.1 10^3/uL (0.0-0.6) 09/27/20 10:20 Absolute Basos (auto) 0.0 10^3/uL (0.0-0.2) 09/27/20 10:20 Seg Neutrophils % 71.9 % (42-78) 09/27/20 10:20 Sodium 143.9 mmol/L (137-145) 09/28/20 07:33 Potassium 4.0 mmol/L (3.6-5.0) 09/28/20 07:33 Chloride 108 mmol/L (98-107) H 09/28/20 07:33 Carbon Dioxide 29 mmol/L (22-30) 09/28/20 07:33 Anion Gap 7 (5-19) 09/28/20 07:33 BUN 21 mg/dL (7-20) H 09/28/20 07:33 Creatinine 0.45 mg/dL (0.52-1.25) L 09/28/20 07:33 Est GFR ( Amer) > 60 (>60) 09/28/20 07:33 Est GFR (MDRD) Non-Af > 60 (>60) 09/28/20 07:33 Glucose 127 mg/dL (75-110) H 09/28/20 07:33 POC Glucose 186 mg/dL (70-110) H 09/28/20 15:38 Calcium 9.2 mg/dL (8.4-10.2) 09/28/20 07:33 Total Bilirubin 0.5 mg/dL (0.2-1.3) 09/27/20 10:20 Direct Bilirubin 0.2 mg/dL (0.0-0.4) 09/27/20 10:20 Neonat Total Bilirubin Not Reportable 09/27/20 10:20 Neonat Direct Bilirubin Not Reportable 09/27/20 10:20 Neonat Indirect Bili Not Reportable 09/27/20 10:20 AST 21 U/L (14-36) 09/27/20 10:20 ALT 13 U/L (<35) 09/27/20 10:20 Alkaline Phosphatase 79 U/L (38-126) 09/27/20 10:20 Creatine Kinase 32 U/L (30-135) 09/27/20 10:20 Troponin I < 0.012 ng/mL 09/27/20 10:20 Total Protein 7.8 g/dL (6.3-8.2) 09/27/20 10:20 Albumin 4.1 g/dL (3.5-5.0) 09/27/20 10:20 Urine Color YELLOW 09/27/20 10:40 Urine Appearance CLEAR 09/27/20 10:40 Urine pH 5.0 (5.0-9.0) 09/27/20 10:40 Ur Specific [place] 1.030 09/27/20 10:40 Urine Protein 30 mg/dL (NEGATIVE) H 09/27/20 10:40 Urine Glucose (UA) NEGATIVE mg/dL (NEGATIVE) 09/27/20 10:40 Urine Ketones 80 mg/dL (NEGATIVE) H 09/27/20 10:40 Urine Blood NEGATIVE (NEGATIVE) 09/27/20 10:40 Urine Nitrite (Reflex) NEGATIVE (NEGATIVE) 09/27/20 10:40 Urine Bilirubin NEGATIVE (NEGATIVE) 09/27/20 10:40 Urine Urobilinogen NEGATIVE mg/dL (<2.0) 09/27/20 10:40 Leukocyte Esterase Rfl NEGATIVE (NEGATIVE) 09/27/20 10:40 Urine RBC (Auto) 1 /HPF 09/27/20 10:40 Urine WBC (Reflex) 1 /HPF 09/27/20 10:40 Squamous Epi Cells Auto <1 /HPF 09/27/20 10:40 Urine Mucus (Auto) OCC /LPF 09/27/20 10:40 Urine Ascorbic Acid 40 (NEGATIVE) H 09/27/20 10:40 09/27/20 10:20 Troponin I < 0.012 Impressions: Head CT 09/27/20 09:14 IMPRESSION: 1. No acute intracranial hemorrhage, mass, or evidence of acute territorial infarct. 2. Moderate chronic small vessel ischemic change and intracranial atherosclerosis, stable. EVIDENCE OF ACUTE STROKE: NO. Chest X-Ray 09/27/20 09:16 IMPRESSION: NO ACUTE RADIOGRAPHIC FINDING IN THE CHEST. Plan Time Spent: Greater than 30 Minutes Stroke Is this a Stroke Patient?: No Acute Heart Failure Is this a Heart Failure Patient?: No
== END 2020-09-28 17:18 | disposition home or self-care (01) ==
LOC: ER 08:31 → INTOOBSV 11:50 → EH 11:50 → 4S 14:30
PROVIDERS: ADMIT Family Medicine; ATTEND Family Medicine
DX: I69.365 Other paralytic syndrome following cerebral infarction, bilateral (principal); I69.320 Aphasia following cerebral infarction; R53.2 Functional quadriplegia; R13.10 Dysphagia, unspecified; E11.622 Type 2 diabetes mellitus with other skin ulcer; L89.153 Pressure ulcer of sacral region, stage 3; Z79.899 Other long term (current) drug therapy; Z79.4 Long term (current) use of insulin; I27.20 Pulmonary hypertension, unspecified; Z79.01 Long term (current) use of anticoagulants; Z79.02 Long term (current) use of antithrombotics/antiplatelets
CPT/HCPCS: 36415; 70450; 71045; 80048; 80053; 81001; 82550; 82962; 84484; 85025; 85027; 93005; 93010; 96360; 99285; G0378; J1650; J1885; J3490; J7030